=== PATIENT | female | born 1955 | race Caucasian/White ===

== ENCOUNTER 2025-06-20 09:14 | Outpatient (OUT) | payer MEDICARE, SELFPAY ==
--- OUTSIDE RECORDS SUMMARY | 2025-06-06 15:15 | XMS_ITS | Encounter Summary ---
Author Organization [facility] Address [address] [place] [address] Care Team Providers Care Clinical Data Programmer Name Role Phone Riley Garcia MD Primary Care Provider [phone] Reason for Referral * Imaging (Routine) - Pending Review Specialty Diagnoses / Procedures Referred By Contac t Referred To Contact Cardiology Diagnoses S/P TAVR (transcatheter aortic valve replacement) Shortness of breath Procedures Transthoracic echo (TTE) complete Elier Harris MD [address] [facility] [place] [address] Phone: tel: fax: Referral ID Status Reason Start Date Expiration Date Visits Requested Visits Authorized [id number] Pending Review Perform Procedure 06/06/2025 06/06/2026 1 1 Encounter Details Date Type Department Care Team (Late st Contact Info) Description 06/06/2025 3:15 PM EDT Office Visit [facility] [address] [place] [address] Elier Harris MD [address] [facility] [place] [address] S/P TAVR (transcatheter aortic valve replacement) (Primary Dx); Coronary artery disease involving [place] coronary artery of [place] heart without angina pectoris; Chronic diastolic congestive heart failure (CMS/HCC); Primary hypertension; Mixed hyperlipidemia; Status post insertion of drug eluting coronary artery stent; LBBB (left bundle branch block); Shortness of breath Social History Tobacco Use Types Packs/Day Years Used Date Smoking Tobacco: Former Cigarettes Smokeless Tobacco: Never Tobacco Cessation:Counseling Given: Not Answered Alcohol Use Standard Drinks/Week Comments Not Currently 0 (1 standard drink = 0.6 oz pur e alcohol) Comments Unknown Sex and Gender Information Value Date Recorded Sex Assigned at Female 06/06/2025 3:19 PM EDT Legal Sex Female 9:30 AM EDT Gender Identity Female 06/06/2025 3:19 PM EDT Sexual Orientation Heterosexual or Straight 02/2025 3:19 PM EDT documented as of this encounter Last Filed Vital Signs Vital Sign Reading Time Taken Comments Blood Pressure 127/76 06/06/2025 4:26 PM EDT Pulse 90 06/06/2025 4:26 PM EDT Temperature - - Respiratory Rate - - Oxygen Saturation 94% 06/06/2025 4:26 PM EDT Inhaled Oxygen Concentration - - Weight 76.7 kg (169 lb) 06/06/2025 4:26 PM EDT Height 157.5 cm (5' 2 ) 06/06/2025 4:26 PM EDT Body Mass Index 30.91 06/06/2025 4:26 PM EDT documented in this encounter Progress Notes * Elier Harris MD - 06/06/2025 3:15 PM EDT Images from the original note were not included. ID Cardiology - [facility] Aileen Carroll is a 70 y.o. year old female patient being seen to establish care. Patient states [place] moved here from [facility] and needs to establish care with a new insulation engineman. Patient had had a cardiac cath stent, and aortic valve replacement in the past. Patient states she has SOB, KOEHLER, fatigue, bruising/bleeding/discoloration, dizziness/lightheaded. Patient denies chest pain, leg swelling, palpitations/racing heart. Patient Active Problem List Diagnosis Aortic stenosis, severe Benign essential hypertension Centrilobular emphysema (CMS/HCC) Chronic allergic rhinitis Seasonal allergic rhinitis Chronic bilateral low back pain without sciatica Decreased diffusion capacity Exercise-induced angina Family history of breast cancer Family history of colon cancer Gastroesophageal reflux disease Hyperlipidemia Hypertrophic cardiomyopathy (CMS/HCC) Hypoxia Idiopathic pulmonary fibrosis (CMS/HCC) ILD (interstitial lung disease) (CMS/HCC) Immunocompromised patient Latent tuberculosis Localized edema Low libido DDD (degenerative disc disease), lumbar 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) Medication monitoring encounter Moderate major depression (CMS/HCC) Moderate persistent asthma without complication Murmur, cardiac Osteoarthritis, hip, bilateral Other cirrhosis of liver (CMS/HCC) Palpitations Portal hypertension (CMS/HCC) Primary insomnia Psychophysiological insomnia Rheumatoid arthritis involving multiple sites (CMS/HCC) Right-sided epistaxis S/P TAVR (transcatheter aortic valve replacement) SOB (shortness of breath) Spider veins Status post total hip replacement, left TB (pulmonary tuberculosis) Varicose veins of both lower extremities with pain Family History Problem Relation Name Age of Onset Hypertension Mother Heart disease Mother Cancer Mother Colon cancer Father Hypertension Sister Heart disease Brother Social History Tobacco Use Smoking status: Former Types: Cigarettes Smokeless tobacco: Never Substance Use Topics Alcohol use: Not Currently Drug use: Never SUSANA Alisa is seen as a new patient to establish care. She is a 70-year-old woman. Her medical history is significant for COPD, hypertension, hyperlipidemia. She has history of arthritis for which she used methotrexate for 10 years. She has coronary artery disease status post PCI of the LAD on 09/17/2024. She also has ostial diagonal disease that is managed medically. She also has history of nonrheumatic aortic valve stenosis status post TAVR on 01/06/2025. It is reported that she had LVOT obstruction with high gradient on the next day echocardiogram which was treated by stopping diuretic therapy and beta-blake. She also developed left bundle branch block post TAVR. She eventually was managed for her diastolic heart failure with diuretic therapy and improved. Today she reports that she has no chest pain. She has shortness of breath with exertion NYHA class II symptoms. She has to rest to catch her breath. This happens especially on walking longer distances. No associated symptoms. No significant lower extremity edema. No palpitations. No syncope. Review of Systems Constitutional: Positive for malaise/fatigue. Cardiovascular: Positive for dyspnea on exertion. Negative for chest pain. Respiratory: Positive for shortness of breath. Hematologic/Lymphatic: Positive for bleeding problem. Bruises/bleeds easily. Neurological: Positive for dizziness and light-headedness. Objective Visit Vitals BP 127/76 (BP Location: Right arm, Patient Position: Sitting) Pulse 90 Ht 1.575 m (5' 2 ) Wt 76.7 kg (169 lb) SpO2 94% BMI 30.91 kg/m?? Smoking Status Former BSA 1.83 m?? Physical Exam Constitutional: Appearance: She is well-developed. She is not ill-appearing. HENT: Head: Normocephalic and atraumatic. Nose: Nose normal. Eyes: General: No scleral icterus. Pupils: Pupils are equal, round, and reactive to light. Neck: Thyroid: No thyromegaly. Vascular: No JVD. Cardiovascular: Rate and Rhythm: Normal rate and regular rhythm. Pulses: Radial pulses are 2+ on the right side and 2+ on the left side. Heart sounds: Murmur heard. Systolic (RUSB) murmur is present with a grade of 3/6. No friction rub. No gallop. Pulmonary: Effort: Pulmonary effort is normal. No respiratory distress. Breath sounds: Normal breath sounds. No wheezing or rales. Chest: Chest wall: No tenderness. Abdominal: General: Bowel sounds are normal. There is no distension. Palpations: Abdomen is soft. Tenderness: There is no abdominal tenderness. Musculoskeletal: General: No swelling. Cervical back: Neck supple. Skin: General: Skin is warm and dry. Neurological: General: No focal deficit present. Mental Status: She is alert and oriented to person, place, and time. Psychiatric: Mood and Affect: Mood normal. Behavior: Behavior is cooperative. Judgment: Judgment normal. Allergies Allergies Allergen Reactions Celecoxib Nausea And Vomiting and Nausea Only Metoclopramide Other and Unknown Dystonic reaction - restless legs Hydroxychloroquine Rash Tiotropium Headache and Rash Tiotropium [place] Headache and Rash Bad headaches/rash Medications Current Outpatient Medications: adalimumab (Humira Pen) 40 mg/0.4 mL pen injector kit pen-injector, Inject 40 mg under the skin every 14 (fourteen) days., Disp: , Rfl: albuterol 90 mcg/actuation inhaler, Inhale 2 puffs every 4 (four) hours if needed., Disp: , Rfl: cholecalciferol (Vitamin D-3) 25 MCG (1000 units) tablet, Take 1,000 Units by mouth in the morning., Disp: , Rfl: clopidogrel (Plavix) 75 mg tablet, Take 75 mg by mouth in the morning., Disp: , Rfl: DULoxetine (Cymbalta) [address] capsule, Take 60 mg by mouth in the morning., Disp: , Rfl: ethambutol (Myambutol) 400 mg tablet, Take 400 mg by mouth in the morning, afternoon, and at bedtime., Disp: , Rfl: rrennhdmexu-pdotsrbya-niklpebr (Trelegy Ellipta) 200-62.5-25 mcg blister with device, Inhale 1 puffin the morning., Disp: , Rfl: furosemide (Lasix) 20 mg tablet, Take 20 mg by mouth in the morning., Disp: , Rfl: lovastatin (Mevacor) 40 mg tablet, Take 40 mg by mouth in the morning., Disp: , Rfl: metoprolol succinate XL (Toprol-XL) 25 mg 24 hr tablet, Take 25 mg by mouth in the morning., Disp: , Rfl: montelukast (Singulair) 10 mg tablet, Take 10 mg by mouth at bedtime., Disp: , Rfl: omeprazole (PriLOSEC) [address] capsule, Take 40 mg by mouth before breakfast., Disp: , Rfl: potassium chloride CR (Klor-Con M20) 20 mEq ER tablet, Take 20 mEq by mouth in the morning., Disp: , Rfl: Wegovy 0.5 mg/0.5 mL pen injector, Inject 5 mcg as directed 1 (one) time per week., Disp: , Rfl: zolpidem (Ambien) 5 mg tablet, Take 5 mg by mouth if needed each day., Disp: , Rfl: amoxicillin (Amoxil) 500 mg tablet, Take 4 tablets (2,000 mg) by mouth 1 (one) time if needed (30-60 minute prior to dental procedures) for up to 20 doses., Disp: 20 tablet, Rfl: 3 aspirin 81 mg chewable tablet, Chew 81 mg in the morning., Disp: , Rfl: ezetimibe (Zetia) 10 mg tablet, Take 1 tablet (10 mg) by mouth in the morning., Disp: 90 tablet, Rfl: 3 gabapentin (Neurontin) 100 mg capsule, Take 100 mg by mouth two times daily., Disp: , Rfl: magnesium oxide (Mag-Ox) 400 mg (241.3 mg magnesium) tablet, Take 400 mg by mouth in the morning., Disp: , Rfl: mometasone-formoterol (Dulera 100) 100-5 mcg/actuation inhaler, Inhale 2 puffs in the morning and at bedtime., Disp: , Rfl: Recent Labs blood testing 06/02/2025: LFTs mildly elevated AST and ALT, cholesterol 155, triglycerides 75, HDL 59, LDL 81, TSH 2.58, free T4 0.82. Blood testing 02/22/2025: Hemoglobin 13.6, platelets 288, potassium 3.8, BUN 7, creatinine 0.7, EGFR92. Imaging and other tests ECG 02/22/2025: Normal sinus rhythm with left bundle branch block. TTE 02/07/2025 Interpretation Summary Show Result Comparison Left Ventricle: Hyperdynamic systolic function with a visually estimated EF of 60 - 65%. Grade I diastolic dysfunction. Mitral Valve: Mild to moderate transvalvular regurgitation with a centrally directed jet. Left Atrium: Left atrium is moderately dilated. IVC/SVC: IVC diameter is greater than 21 mm and decreases less than 50% during inspiration; therefore the estimated right atrial pressure is elevated (~15 mmHg). Aortic Valve: Appropriately positioned transcatheter bioprosthetic valve. No transvalvular regurgitation. No stenosis.LVOT mean PG of 8mmgh Event monitor 01/07/2025: Impressions: 1. Underlying sinus rhythm with bundle branch block noted. Average heart rate 73 bpm and minimum heart rate 53 bpm. No significant pauses were seen 2. 1 patient triggered event which was associated with sinus rhythm atrial couplet 3. Occasional PACs with 2% PAC burden 4. Frequent episodes of nonsustained SVT which at times appear to be atrial tachycardia and other times was concerning for atrial flutter. Very difficult to identify underlying rhythm. There were 251 total episodes of the atrial arrhythmia with the longest lasting 27 minutes. Total atrial arrhythmia burden of 1%. Total time in atrial arrhythmia of 6 hours and 13 minutes. 5. Occasional PVCs with 2% PVC burden. No obvious ventricular arrhythmia identified. There were episodes of short runs of wide-complex tachycardia but with underlying bundle branch block difficult to determine whether this represents nonsustained VT. TAVR 01/06/2025 Conclusion: Successful 29 evolute fx TAVR placement. Patient developed left bundle branch block from the wire insertion and she stayed on left bundle branch block. No requirement for pacing, temporary pacemaker was removed. Primary access was 14 [place] right femoral artery was closed with 2 Perclose and 8 [place] Angio-Seal with excellent hemostasis. Secondary access 5 [place] left femoral artery and 6 [place] left femoral vein were removed with manual pressure excellent hemostasis. Transthoracic echo the morning. Consider event monitor upon discharge Routine post-TAVR protocol. Assessment/Plan Diagnoses and all orders for this visit: S/P TAVR (transcatheter aortic valve replacement) - Transthoracic echo (TTE) complete; Future - amoxicillin (Amoxil) 500 mg tablet; Take 4 tablets (2,000 mg) by mouth 1 (one) time if needed (30-60 minute prior to dental procedures) for up to 20 doses. Coronary artery disease involving [place] coronary artery of [place] heart without angina pectoris - ezetimibe (Zetia) 10 mg tablet; Take 1 tablet (10 mg) by mouth in the morning. Chronic diastolic congestive heart failure (CMS/HCC) Primary hypertension Mixed hyperlipidemia - ezetimibe (Zetia) 10 mg tablet; Take 1 tablet (10 mg) by mouth in the morning. Status post insertion of drug eluting coronary artery stent LBBB (left bundle branch block) Shortness of breath - Transthoracic echo (TTE) complete; Future 1. Status post TAVR for nonrheumatic aortic valve stenosis: The 1 months post TAVR echocardiogram in February 2025 showed normal functioning of the TAVR prosthesis. Today on exam she does have a higher grade murmur that I would expect after a TAVR. She does have shortness of breath on exertion NYHA class II symptoms. I will check a follow-up echocardiogram. This is to check on ventricular function especially in light of her development of left bundle branch block after the TAVR. I am providing her with a prescription for amoxicillin for endocarditis prophylaxis prior to dentalprocedures. 2. CAD status post stenting of the LAD in September 2024: No angina. Continue dual antiplatelet therapy with aspirin and clopidogrel. I will target lower LDL level by adding ezetimibe 10 mg daily. I told her that when I see her next time in 3 months we will consider stopping clopidogrel and continuing aspirin monotherapy. 3. Hypertension: This is well-controlled, continue current medications. 4. Hyperlipidemia: Currently on lovastatin. Her most recent LDL level in May 2025 was 81. I am adding ezetimibe 10 mg daily to target lower LDL level. I will plan on seeing her in follow-up to review the above testing and her clinical progress and decide on further management. Follow up in about 3 months (around 09/06/2025). Elier Harris MD documented in this encounter Plan of Treatment Scheduled Orders Name Type Priority Associated Diagnoses Order Schedule Transthoracic echo (TTE) complete Echocardiography Routine S/P TAVR (transcatheter aortic valve replacement) Shortness of breath Expected: 06/06/2025 (Approximate), Expires: 06/06/2027 documented as of this encounter Visit Diagnoses Diagnosis S/P TAVR (transcatheter aortic valve replacement)- Primary Coronary artery disease involving [place] coronary artery of [place] heart without angina pectoris Chronic diastolic congestive heart failure (CMS/HCC) Primary hypertension Unspecified essential hypertension Mixed hyperlipidemia Status post insertion of drug eluting coronary artery stent LBBB (left bundle branch block) Other left bundle branch block Shortness of breath documented in this encounter Care Teams Clinical Data Programmer Relationship Specialty Start Date End Date Riley Garcia MD [address] [facility] [address] [address] PCP - General Family Medicine 06/06/25 documented as of this encounter
--- OUTSIDE RECORDS SUMMARY | 2025-06-20 09:22 | XMS_ITS | Clinical Summary ---
Author Organization [facility] Address [address] [place] [address] Care Team Providers Care Outsole Skiver Name Role Phone Riley Garcia MD Primary Care Provider [phone] Allergies Active Allergy Reactions Criticality Noted Date Comments Celecoxib Nausea And Vomiting,Nausea Only Medium 06/10/2011 Hydroxychloroquine Rash Low 12/13/2024 Metoclopramide Other,Unknown Medium 08/21/2020 Dystonic reaction - restless legs Tiotropium Headache,Rash Low 03/29/2020 Tiotropium [place] Headache,Rash Low 11/19/2018 Bad headaches/rash Medications fluticasone-umeclid in-vilanter (Trelegy Ellipta) 200-62.5-25 mcg blister with device Inhale 1 puff in the morning. 4 Active albuterol 90 mcg/actuation inhaler Inhale 2 puffs every 4 (four) hours if needed. 8 Active cholecalciferol (Vitamin D-3) 25 MCG (1000 units) tablet Take 1,000 Units by mouth in the morning. 5 Active clopidogrel (Plavix) 75 mg tablet Take 75 mg by mouth in the morning. 4 Active DULoxetine (Cymbalta) [address] capsule Take 60 mg by mouth in the morning. 4 Active ethambutol (Myambutol) 400 mg tablet Take 400 mg by mouth in the morning, afternoon, and at bedtime. 5 Active furosemide (Lasix) 20 mg tablet Take 20 mg by mouth in the morning. 4 Active gabapentin (Neurontin) 100 mg capsule Take 100 mg by mouth two times daily. Active lovastatin (Mevacor) 40 mg tablet Take 40 mg by mouth in the morning. 4 Active magnesium oxide (Mag-Ox) 400 mg (241.3 mg magnesium) tablet Take 400 mg by mouth in the morning. Active metoprolol succinate XL (Toprol-XL) 25 mg 24 hr tablet Take 25 mg by mouth in the morning. 5 Active montelukast (Singulair) 10 mg tablet Take 10 mg by mouth at bedtime. 0 Active omeprazole (PriLOSEC) [address] capsule Take 40 mg by mouth before breakfast. 4 Active potassium chloride CR (Klor-Con M20) 20 mEq ER tablet Take 20 mEq by mouth in the morning. 4 Active zolpidem (Ambien) 5 mg tablet Take 5 mg by mouth if needed each day. 5 Active Wegovy 0.5 mg/0.5 mL pen injector Inject 5 mcg as directed 1 (one) time per week. 5 Active mometasone-formoter ol (Dulera 100) 100-5 mcg/actuation inhaler Inhale 2 puffs in the morning and at bedtime. Active aspirin 81 mg chewable tablet Chew 81 mg in the morning. Active adalimumab (Humira Pen) 40 mg/0.4 mL pen injector kit pen-injector Inject 40 mg under the skin every 14 (fourteen) days. 5 Active ezetimibe (Zetia) 10 mg tabletIndications:C oronary artery disease involving [place] coronary artery of [place] heart without angina pectoris,Mixed hyperlipidemia Take 1 tablet (10 mg) by mouth in the morning. 90 tablet 3 5 06/06/20 26 Active amoxicillin (Amoxil) 500 mg tabletIndications:S /P TAVR (transcatheter aortic valve replacement) Take 4 tablets (2,000 mg) by mouth 1 (one) time if needed (30-60 minute prior to dental procedures) for up to 20 doses. 20 tablet 3 5 Active Active Problems Problem Noted Date Diagnosed Date Hypoxia 06/06/2025 S/P TAVR (transcatheter aortic valve replacement ) 01/06/2025 Localized edema 10/28/2024 Aortic stenosis, severe 09/01/2024 Portal hypertension 01/27/2024 IRENA (mycobacterium avium-intracellulare) infecti on 11/11/2023 DDD (degenerative disc disease), lumbar 07/31/20 Centrilobular emphysema 07/25/2022 Low libido 07/25/2022 Psychophysiological insomnia 07/25/2022 Murmur, cardiac 03/21/2022 Chronic allergic rhinitis 06/01/2021 Immunocompromised patient 06/01/2021 Other cirrhosis of liver 08/04/2020 Overview (06/06/2025): Due to methotrexate Varicose veins of both lower extremities with pa in 08/04/2020 Chronic bilateral low back pain without sciatica 05/30/2020 Moderate major depression 05/30/2020 Idiopathic pulmonary fibrosis 05/19/2018 Seasonal allergic rhinitis 04/14/2018 Overview (06/06/2025): in spring and fall Decreased diffusion capacity 04/14/2018 Overview (06/06/2025): progressive since 2001 ILD (interstitial lung disease) 04/14/2018 Overview (06/06/2025): likely from RA/ methotrexate use- pending CT chest Latent tuberculosis 04/14/2018 Overview (06/06/2025): treated for a year at age 8 Moderate persistent asthma without complication 04/14/2018 Overview (06/06/2025): clinically and per PFT Palpitations 02/03/2018 SOB (shortness of breath) 02/03/2018 Primary insomnia 01/23/2018 Spider veins 01/23/2018 Medication monitoring encounter 03/18/2017 Status post total hip replacement, left 10/16/20 16 Hypertrophic cardiomyopathy 09/24/2016 Exercise-induced angina 08/27/2016 Overview (06/06/2025): Replaced inactive diagnosis Right-sided epistaxis 08/02/2016 Osteoarthritis, hip, bilateral 02/10/2014 TB (pulmonary tuberculosis) 02/22/2013 Benign essential hypertension 11/29/2011 Family history of breast cancer 11/29/2011 Family history of colon cancer 11/29/2011 Gastroesophageal reflux disease 11/29/2011 Hyperlipidemia 11/29/2011 Rheumatoid arthritis involving multiple sites Overview (06/06/2025): on methotrexate and Humira injections- controlled updated via Diagnosis import Encounters Date Type Department Care Team Description 06/06/2025 3:15 PM EDT Office Visit [place] [address] [place] [id number] Elier Harris MD S/P TAVR (transcatheter aortic valve replacement) (Primary Dx); Coronary artery disease involving [place] coronary artery of [place] heart without angina pectoris; Chronic diastolic congestive heart failure (CMS/HCC); Primary hypertension; Mixed hyperlipidemia; Status post insertion of drug eluting coronary artery stent; LBBB (left bundle branch block); Shortness of breath from Last 3 Months Family History Medical History Relation Name Comments Heart disease Brother Colon cancer Father Cancer Mother Heart disease Mother Hypertension Mother Hypertension Sister Relation Name Status Comments Brother Father Mother Sister Social History Tobacco Use Types Packs/Day Years [...] Heterosexual or Straight 02/2025 3:19 PM EDT Last Filed Vital Signs Vital Sign Reading [...] Mass Index 30.91 06/06/2025 4:26 PM EDT Plan of Treatment Health Maintenance Due Date Last Done Comments CT Colonography 1953 FIT-DNA 1953 FIT 1955 FOBT 1955 Sigmoidoscopy 1953 Depression Screening 1965 Adult Tetanus 1975 Fall Risk Screening 2018 COVID-19 Vaccine ( season) 2024 11/03/2021, 04/13/2021, 03/16/2021 Influenza Vaccine (#1) 2025 , 07/23/2022, 07/18/2021, Additional history exists Mammogram 12/01/2026 12/01/2024, 11/03, 06/08/2014 Colonoscopy 10/04/2031 10/04/2021 Colorectal Cancer Screening 10/04/2031 Pneumococcal Vaccine: 50+ Years Completed 06/01/2021, 05/30/2020 Zoster Vaccines Completed 07/26/2024, 05/20/2024 HIB Vaccines Aged Out No longer eligi ble based on patient's age to complete this topic HPV Vaccines Aged Out No longer eligi ble based on patient's age to complete this topic IPV Vaccines Aged Out No longer eligi ble based on patient's age to complete this topic Meningococcal B Vaccine Aged Out No l onger eligible based on patient's age to complete this topic Meningococcal Vaccine Aged Out No ruben julissa eligible based on patient's age to complete this topic Rotavirus Vaccines Aged Out No longer eligible based on patient's age to complete this topic Insurance [facility] Care Teams Outsole Skiver Relationship Specialty Start Date End Date Riley Garcia MD [address] [facility] [place] [address] PCP - General Family Medicine 06/06/25
--- NOTE | 2025-06-20 09:30 | CA_ITS ---
Patient Name: VINCENT MCKINNON MR#: [id number] : 1955 Exam Date: 06/20/2025 Ordering Doctor: DR SUHAIL HARRIS M.D. ECHOCARDIOGRAM REPORT PROCEDURE: CA ECHO DOPPLER COMPLETE INDICATIONS: S/p TAVR (transcatheter aortic valve replacement), dyspnea, hypertension, COPD COMPARISON: None. DESCRIPTION: COMPLETE ECHOCARDIOGRAM Real-time transthoracic echocardiography with 2D, M-mode, spectral and color flow Doppler performed. QUALITY: Technical quality was good. LEFT VENTRICLE: Normal chamber size. Moderate to severe concentric hypertrophy with significantly thickened septal wall measuring 1.5 cm. Hyperdynamic systolic function. Mild ventricular outflow obstruction, peak gradient 19 mmHg with a Valsalva maneuver. Estimated LVEF is 75%. LV EF: Normal left ventricular ejection fraction, (>55%). DIASTOLIC: Grade II diastolic dysfunction. ATRIAL SEPTUM: Visually appears intact. LEFT ATRIUM: Mild dilatation. RIGHT ATRIUM: Normal chamber size. RIGHT VENTRICLE: Normal chamber size. Normal right ventricular systolic function. TRICUSPID VALVE: Normal mobility and thickness. No stenosis with mild regurgitation. Doppler studies reveal moderately (45-60) elevated right sided pressures. RVSP 50 mmHg MITRAL VALVE: Normal mobility and thickness. No evidence of mitral valve stenosis. There is no mitral annular calcification. Mild to moderate mitral regurgitation. AORTIC VALVE: Bio-Prosthetic valve appears well seated in the aortic position with normal Doppler flow. Mean gradient 12 mmHg [high LVOT velocity]. No aortic regurgitation. AORTIC ROOT: Normal diameter and appearance. PULMONIC VALVE: Normal thickness and mobility. No stenosis. No regurgitation. PERICARDIUM: Trivial pericardial effusion. IVC: Collapses with inspirations. PLEURA: CONCLUSION: 1. Moderate to severe concentric left ventricular hypertrophy with hyperdynamic systolic function and mild LVOT obstruction with Valsalva maneuver, peak gradient 19 mmHg. Estimated LVEF is 75%. 2. Normal right ventricular size and systolic function. 3. Bioprosthetic aortic valve is well-seated with normal Doppler flows and no regurgitation. 4. Mild to moderate mitral regurgitation. 5. Mild tricuspid regurgitation. 6. Moderately elevated right-sided pressures. RVSP is 50 mmHg. Adult Echocardiography Procedure Report Left Ventricle LVEDD (3.7 - 5.6 cm): 4.23 cm LVESD (2.2 - 4.0 cm): 2.77 cm LVIVS thickness (0.6 - 1.2 cm): 1.51 cm LVPW thickness (0.5 - 1.0 cm): 0.87 cm e': 0.07 m/s E - e': 10.25 LVOT Max Gradient: 17.57 mm[Hg] LVOT Area (cm2): 2.10 m/s Peak Velocity (LVOT): 2.10 m/s Mean Velocity (LVOT): 1.24 m/s LVOT Diameter 2.02 cm Left Ventricular Ejection Fraction: 75 % Left Atrium LA Volume Index (2D A2C): 38.49 ml/m2 Left Atrium Systolic Dimension: 3.46 cm Mitral Valve MV E to A Ratio: 0.63 Mitral Valve A-Wave Peak Velocity: 1.09 m/s Mitral Valve E-Wave Peak Velocity: 0.69 m/s Right Ventricle Aorta AO Root Diam: 3.08 cm Aortic Valve AoV Area (Peak Arturo): 2.63 cm2, 2.63 cm2 AoV Area (VTI): 2.56 cm2, 2.56 cm2 Peak Velocity(Antegrade Flow): 2.56 m/s Peak Gradient(Antegrade Flow): 26.24 mm[Hg] Mean Velocity(Antegrade Flow): 1.55 m/s Mean Gradient(Antegrade Flow): 11.82 mm[Hg] Velocity Time Integral: 44.50 cm Tricuspid Valve Peak Velocity (Regurgitant Flow): 2.81 m/s, 3.43 m/s, 2.73 m/s Pulmonic Valve Peak Velocity: 1.26 m/s Peak Gradient: 6.34 mm[Hg] Right Atrium Dictated by: Suhail Harris M.D. on 06/20/2025 at 17:23 Approved by: Suhail Harris M.D. on 06/20/2025 at 17:33
== END 2025-06-20 09:15 | disposition home or self-care (01) ==
LOC: CARD 09:20
PROVIDERS: PCP Family Medicine; Visit Provider Internal Medicine Interventional Cardiology
DX: R06.02 Shortness of breath (principal); Z95.2 Presence of prosthetic heart valve
CPT/HCPCS: 93306

== ENCOUNTER 2025-07-05 10:51 | Outpatient (OUT) | payer MEDICARE, SELFPAY ==
[2025-07-05 11:03] LABS: Hemoglobin 14.1 g/dL (12.0-16.0)
[2025-07-05] MEDS: ALBUTEROL SULFATE 2.5 MG/3 ML VIAL NEB IH (11:30)
== END 2025-07-05 10:52 | disposition home or self-care (01) ==
LOC: CARD 10:51
PROVIDERS: PCP Family Medicine; Visit Provider Family Medicine
DX: J44.9 Chronic obstructive pulmonary disease, unspecified (principal)
CPT/HCPCS: 36415; 85018; 94060; 94726; 94729

== ENCOUNTER 2025-07-14 09:40 | Outpatient (OUT) | payer MEDICARE, SELFPAY ==
--- OUTSIDE RECORDS SUMMARY | 2025-06-23 06:00 | XMS_ITS ---
Author Organization The [facility] in [place] Address [address] [place] [address] Care Team Providers Care Client Solutions Specialist Name Role Phone Jose Homero Primary Care Provider [phone] Allergies Allergen (clinical drug ingredient) Drug/Non Drug Allergy documented on EMR Reaction Allergy Type Onset Date Status celecoxib CeleBREX GI upset Drug Allergy Active Reason For Referral Diagnosis 1 Cervical radiculopat hy (M54.12) Referral Organization [facility] Medicine Referring Provider First Name Homero Referring Provider Last Name Jose Referring Provider Speciality Family Med icine Referred Provider Pain Management, TB Referred Provider Specialty Pain Medicin e Referral Priority Routine REASON FOR VISIT Needs Referral- wants spinal injection she was supposed to have done prior to moving here Medications Medication SIG (Take, Route, Frequency, Duration) Notes Start Date End Date Status Metoprolol Succinate ER 25 MG 1 tablet Orally Once a day 06/01/2025 Active Methocarbamol 750 MG 1 tablet Orally thr ee times daily PRN 06/01/2025 Active Magnesium 250 MG 2 tablet with a meal Orally Once a day 06/01/2025 Active Lovastatin 40 MG 1 tablet Orally with evening meal 06/01/2025 Active Montelukast Sodium 10 MG 1 tablet Orally Once a day 06/01/2025 Active Gabapentin 300 MG 1 capsule Orally thr ee times daily for 30 days 06/01/2025 Active Furosemide 40 MG 1 tablet Orally twic e daily 06/01/2025 Active DULoxetine HCl 60 MG 1 capsule Orally On a day 06/01/2025 Active Aspirin Adult Low Dose 81 MG 1 tablet Orally Once a day 06/01/2025 Active Albuterol Sulfate HFA 108 (90 Base) MCG/ACT 2 puff as needed Inhalation every 4 hrs 06/01/2025 Active Zolpidem Tartrate 5 MG 1 tablet Orally a t bedtime PRN 06/01/2025 Active Zetia 10 MG 1 tablet Orally Once a day for 30 days 06/07/2025 Active Wegovy 0.5 MG/0.5ML Inject 0.5 mL Subcutaneous once weely 06/01/2025 Active Vitamin D3 25 MCG (1000 UT) 1 tablet Ora lly Once a day 06/01/2025 Active predniSONE 10 MG 1 tab Orally Once a day for 30 days 06/01/2025 Active Potassium Chloride Kiesha ER 20 MEQ 1 tablet with food Orally twice daily 06/01/2025 Active Omeprazole 40 MG 1 capsule 1/2 to 1 h our before morning meal Orally Once a day 06/01/2025 Active Social History Tobacco Use: Social History Observation Description Date Details (start date - stop date) Former Smoker 11/03/1968 - 11/03/2000 Tobacco Control (Standard) Question Answer Notes Tobacco use: Former smoker When did you start smoking? 11/03/1968 When did you stop smoking? 11/03/2000 How long has it been since y ou last smoked? Greater than 10 years Additional Findings: Tobacco user Modera te cigarette smoker (10-19 cigs/day) Additional Findings: Tobacco non-user Ex -moderate cigarette smoker (10-19/day) Problems Problem Type SNOMED Code ICD Code Onset Dates Problem Status W/U Status Risk Notes Problem Cervical radiculopathy (02961600) Cervical radiculopathy (M54.12) Active confirmed Vital Signs Blood pressure systolic 118 mm Hg 06/23/20 25 Blood pressure diastolic 80 mm Hg 025 Height 62 in 06/23/2025 Weight 166.6 lbs 06/23/2025 BMI 30.47 kg/m2 06/23/2025 Encounters Encounter Location Date Provider Diagnosis [facility] [address] [place] [address] 06/23/2025 Homero Hoy Cervical radiculopat hy M54.12 Assessments Encounter Date Diagnosis (ICD Code) Assessment Notes Treatment Notes Treatment Clinical Notes Section Notes 06/23/2025 Cervical radiculopathy (ICD-10 - M54.12) 06/23/2025 Other Recommended to rest and use a heating pad on the area. Take NSAIDs for pain as needed Plan Of Treatment Treatment Notes Assessment Notes Other Recommended to rest and use a heating pad on the area. Take NSAIDs for pain as needed Referrals Referral Date Details 06/23/2025 06/23/2025, [facility] Pain Management Next Appt Details Provider Name:Homero Portillo oJse, 10:15:00 AM, [address] [place], [address], Progress Notes * Alisa CARROLLDOB:1955 ( 70 yo F)Acc No.[id number]:06/23/2025 Progress Note Patient: Alisa STEINBERG Provider: Grey Garcia ([facility])MD :1955 A ge:70 Y S ex:Female Date:06/23/2025 Address:[address] [place] [address] [address] [facility] , [address], [id number] Check In:09:44 AM ESTCheck O ut:10:45 AM EST Subjective: * Chief Complaints: * N eeds Referral- wants spinal injection she was supposed to have done prior to moving here * HPI: G eneral: Discussed - neck pain - was recommended to have ervical injections - but moved to this area. B ack Pain: The patient complains of -. The symptoms have been present for 1-2 days. The patient believes symptoms are injury related No. The symptoms are mild. Symptomatic treatment has included heating pad, stretching. Associated symptoms include None. * ROS: G eneral/Constitutional: Lightheadedness d enies. C hange in appetite d enies. W eight Change d enies. C ardiovascular: Irregular heartbeat d enies. S welling in hands/feet?denies. R espiratory: Shortness of breath d enies. S hortness of breath with exertion d enies. W heezing d enies. M usculoskeletal: Comments S ee HPI for details. N eurologic: Dizziness d enies. F ainting d enies. H eadache?denies. * Active Problem List M06.9 Rheumatoid arthritis Modified On:06/01/2025 Status:confirmed J44.9 COPD (chronic obstru ctive pulmonary disease) Modified On:06/01/2025 Status:confirmed K21.9 GERD (gastroesophage al reflux disease) Modified On:06/01/2025 Status:confirmed J30.2 Seasonal allergies Modified On:06/01/2025 Status:confirmed K76.9 Liver disease Modified On:06/01/2025 Status:confirmed M62.830 Back spasm Modified On:06/01/2025 Status:confirmed E78.00 Hypercholesterolemia Modified On:06/01/2025 Status:confirmed G47.00 Insomnia Modified On:06/01/2025 Status:confirmed I25.10 CAD (coronary artery disease) Modified On:06/01/2025 Status:confirmed K74.60 Cirrhosis Modified On:06/01/2025 Status:confirmed M54.12 Cervical radiculopat hy Modified On:06/23/2025 Status:confirmed * Medical History: * Surgical History: A ortic Valve Replacement Carpal Hip replacement- left Knee arthroscopy Rotator Cuff- Left * Hospitalization/Major Diagno stic Procedure: D enies Past Hospitalization * Family History: F ather: , Colon cancer. M other: , pancreatic cancer. B rother(s): . S ister(s): , Lung Cancer. S on(s): alive. D jacey(s): alive. 5 brother(s) , 5 sister(s) . 2 son(s) , 1 daughter(s) - healthy. . 1 brother at . * Social History: T obacco Use: T obacco Control (Standard) T obacco use: F ormer smoker W hen did you start smoking? 0 11/03/1968 W hen did you stop smoking? 0 11/03/2000 H ow long has it been since you last smoked??Greater than 10 years A dditional Findings: Tobacco user M oderate cigarette smoker (10-19 cigs/day) A dditional Findings: Tobacco non-user E x-moderate cigarette smoker (10-19/day) * Medications: T akingAlbuterol Sulfate HFA 108 (90 Base) MCG/ACT Aerosol Solution 2 puff as needed Inhalation every 4 hrs Aspirin Adult Low Dose(Aspirin) 81 MG Tablet Delayed Release 1 tablet Orally Once a day DULoxetine HCl 60 MG Capsule Delayed Release Particles 1 capsule Orally Once a day Furosemide 40 MG Tablet 1 tablet Orally twice daily Gabapentin 300 MG Capsule 1 capsule Orally three times daily Lovastatin 40 MG Tablet 1 tablet Orally with evening meal Magnesium 250 MG Tablet 2 tablet with a meal Orally Once a day Methocarbamol 750 MG Tablet 1 tablet Orally three times daily PRN Metoprolol Succinate ER 25 MG Tablet Extended Release 24 Hour 1 tablet Orally Once a day Montelukast Sodium 10 MG Tablet 1 tablet Orally Once a day Omeprazole 40 MG Capsule Delayed Release 1 capsule 1/2 to 1 hour before morning meal Orally Once a day Potassium Chloride Kiesha ER 20 MEQ Tablet Extended Release 1 tablet with food Orally twice daily predniSONE 10 MG Tablet 1 tab Orally Once a day Vitamin D3 25 MCG (1000 UT) Tablet 1 tablet Orally Once a day Wegovy(Semaglutide-Weight Management) 0.5 MG/0.5ML Solution Auto-injector Inject 0.5 mL Subcutaneous once weely Zetia(Ezetimibe) 10 MG Tablet 1 tablet Orally Once a day Zolpidem Tartrate 5 MG Tablet 1 tablet Orally at bedtime PRN Medication List reviewed and reconciled with the patientTaking Albuterol Sulfate HFA 108 (90 Base) MCG/ACT Aerosol Solution 2 puff as needed Inhalation every 4 hrs Taking Aspirin Adult Low Dose(Aspirin) 81 MG Tablet Delayed Release 1 tablet Orally Once a day Taking DULoxetine HCl 60 MG Capsule Delayed Release Particles 1 capsule Orally Once a day Taking Furosemide 40 MG Tablet 1 tablet Orally twice daily Taking Gabapentin 300 MG Capsule 1 capsule Orally three times daily Taking Lovastatin 40 MG Tablet 1 tablet Orally with evening meal Taking Magnesium 250 MG Tablet 2 tablet with a meal Orally Once a day Taking Methocarbamol 750 MG Tablet 1 tablet Orally three times daily PRN Taking Metoprolol Succinate ER 25 MG Tablet Extended Release 24 Hour 1 tablet Orally Once a day Taking Montelukast Sodium 10 MG Tablet 1 tablet Orally Once a day Taking Omeprazole 40 MG Capsule Delayed Release 1 capsule 1/2 to 1 hour before morning meal Orally Once a day Taking Potassium Chloride Kiesha ER 20 MEQ Tablet Extended Release 1 tablet with food Orally twice daily Taking predniSONE 10 MG Tablet 1 tab Orally Once a day Taking Vitamin D3 25 MCG (1000 UT) Tablet 1 tablet Orally Once a day Taking Wegovy(Semaglutide- Weight Management) 0.5 MG/0.5ML Solution Auto-injector Inject 0.5 mL Subcutaneous once weely Taking Zetia(Ezetimibe) 10 MG Tablet 1 tablet Orally Once a day Taking Zolpidem Tartrate 5 MG Tablet 1 tablet Orally at bedtime PRN Medication List reviewed and reconciled with the patient * Allergies: C eleBREX: GI upset - Side Effectsno[Allergies Verified] Objective: * Vitals: W t:166.6lbs, Ht: 62 in, BP:118/80mm Hg, BMI:30.47Index, Ht-cm: 157.48 cm, Wt-k.57 kg. * Examination: G eneral Examination: GENERAL APPEARANCE: i n no acute distress, well developed, well nourished. LUNGS: clear to auscultation bilaterally. CARDIO: S1, S2 normal, no murmurs, rubs, gallops. MUSCULOSKELETAL: ____. EXTREMITIES: no clubbing, cyanosis, or edema. NEUROLOGIC: alert, oriented to time, place, & person.? Assessment: * Assessment: 1. C ervical radiculopathy - M54.12 (Primary) Plan: * Treatment: 2. O thers Notes: Recommended to rest and use a heating pad on the area. Take NSAIDs for pain as needed ? * Procedure Codes: 3 079F DIAST BP 80-89 MM [id number] SYST BP LT 130 MM HG * * Sign off status: Completed Visit Status: C HK (Check Out) true * Provider: Grey Garcia (TTC)MD Date: 0 06/23/2025 Generated for Christine booth/Bita/Aliciaitting on: 0 07/14/2025 09:42 AM EDT History and Physical Notes * HPI (History of Present Illness) Category Sub-Category Detail Notes Category Not es General Discussed - nec k pain - was recommended to have ervical injections - but moved to this area Examination Category Sub-Category Detail Notes Category Not es General Examination GENERAL APPEARANCE: in no ac [place] distress, well developed, well nourished CARDIO: S1, S2 normal, no mu rmurs, rubs, gallops LUNGS: clear to auscultatio n bilaterally NEUROLOGIC: alert, oriented to t orion, place, & person EXTREMITIES: no clubbing, cyanosi s, or edema MUSCULOSKELETAL: ____ Consultation Request Notes Referral Date Referring Provider Referred Provider Not es 06/23/2025 Homero Garcia Pain Management, [facility]
--- OUTSIDE RECORDS SUMMARY | 2025-06-23 06:40 | XMS_ITS ---
Author Organization [facility] in [place] Address [address] [place] [address] Care Team Providers Care Licensed Chemical Spray Technician Name Role Phone Homero Garcia Primary Care Provider [phone] REASON FOR VISIT results Encounters Encounter Location Date Provider Diagnosis [facility] [address] [place] [address] 06/23/2025 Homero Jose Plan Of Treatment Next Appt Details Provider Name:Homero Garcia, 10:15:00 AM, [address] [place], [address], Progress Notes * LEONARDOAlec SolitariolinoDOB:1955 ( 70 yo F)Acc No.[id number]:06/23/2025 Patient: Alisa STEINBERG :1955 A ge:70 Y S ex:Female Address:[address] [place] [address] [address] , [address], [place], [address] * true * Date: Generated for Christine booth/Bita/eTransmitting on: 0 07/14/2025 09:43 AM EDT
--- OUTSIDE RECORDS SUMMARY | 2025-06-28 11:04 | XMS_ITS ---
Author Organization [facility] in [place] Address [address] [place] [address] Care Team Providers Care Inspector Plug Seam Name Role Phone Homero Garcia Primary Care Provider [phone] Reason For Referral Diagnosis 1 Rheumatoid arthritis (M06.9) Referral Organization [facility] Referring Provider First Name Homero Referring Provider Last Name Jose Referring Provider [facility] Referred Provider Specialty Rheumatology Referral Priority Routine REASON FOR VISIT Rheumatology Encounters Encounter Location Date Provider Diagnosis [facility] [address] [place] [address] 06/28/2025 Homero Garcia Rheumatoid arthritis M06.9 Assessments Encounter Date Diagnosis (ICD Code) Assessment Notes Treatment Notes Treatment Clinical Notes Section Notes 06/28/2025 Rheumatoid arthritis (ICD-10 - M06.9) Plan Of Treatment Referrals Referral Date Details 06/28/2025 06/28/2025 Next Appt Details Provider Name:Homero Garcia, 10:15:00 AM, [address] [place], [address], Progress Notes * Alisa CARROLLDOB:1955 ( 70 yo F)Acc No.[id number]:06/28/2025 Patient: Alisa STEINBERG :1955 A ge:70 Y S ex:Female Address:[address] , [address], [place], [address] Subjective: * Chief Complaints: * R heumatology * Medical History: * Surgical History: * Hospitalization/Major Diagno stic Procedure: * Medications: Objective: * Vitals: * Physical Examination: Assessment: * Assessment: 1. R heumatoid arthritis - M06.9 (Primary) Plan: * Treatment: * Procedure Codes: * true * Date: Generated for Christine booth/Bita/Nicksmitting on: 0 07/14/2025 09:44 AM EDT Consultation Request Notes Referral Date Referring Provider Referred Provider Not es 06/28/2025 Homero Garcia ,
--- OUTSIDE RECORDS SUMMARY | 2025-06-30 05:00 | XMS_ITS ---
Author Organization [facility] in [place] Address [address] [place] [address] Care Team Providers Care Embedded Software Manager Name Role Phone Homero Garcia Primary Care Provider Gage Chu [phone] REASON FOR VISIT new pt per pt rheumatoid arthritis Encounters Encounter Location Date Provider Diagnosis [facility] Rheumatology [address] [place] [address] 06/30/2025 Gage Chu Plan Of Treatment Next Appt Details Provider Name:Homero Garcia, 10:15:00 AM, [address] [place], [address], Progress Notes * INO AlisaDOB:1955 ( 70 yo F)Acc No.[id number]:06/30/2025 UNLOCKED PROGRESS NOTE New Patient Patient: Alisa STEINBERG Provider: Zev Chu MD :1955 A ge:70 Y S ex:Female Date:06/30/2025 Address:[address] [place] [address] [address] , [address], [id number] Pcp:Homero Garcia Subjective: * Chief Complaints: * 1 . New pt per pt rheumatoid arthritis. * Medical History: Objective: * Vitals: Assessment: Plan: * Treatment: * * Electronic signature of Gage Chu MD, [id number] on 07/14/2025 at 09:44 AM EDT Sign off status: Pending Visit Status: C ANC (Cancelled) * Provider: Zev Chu MD Date: 0 06/30/2025 Generated for Christine booth/Bita/Loli on: 0 07/14/2025 09:44 AM EDT
--- OUTSIDE RECORDS SUMMARY | 2025-07-06 14:49 | XMS_ITS ---
Author Organization The [facility] in [place] Address [address] [place] [address] Care Team Providers Care Complaint Operator Name Role Phone Homero Garcia Primary Care Provider REASON FOR VISIT PFT results Problems Problem Type SNOMED Code ICD Code Onset Dates Problem Status W/U Status Risk Notes Problem Pulmonary hypertension (98333539) Pulmonary hypertension (I27.20) Active confirmed Encounters Encounter Location Date Provider Diagnosis [facility] [address] [place] [address] 07/06/2025 Homero Garcia Plan Of Treatment Next Appt Details Provider Name:Homero Garcia, 10:15:00 AM, [address] [place], [address], Progress Notes * LEONARDOAlisa SolitarioDOB:1955 ( 70 yo F)Acc No.[id number]:07/06/2025 Patient: Alisa STEINBERG :1955 A ge:70 Y S ex:Female Address:[address] [place] [address] [address] , [address], [place], [address] * true * Date: Generated for Printi ng/Faxing/eTransmitting on: 0 07/14/2025 09:43 AM EDT
--- OUTSIDE RECORDS SUMMARY | 2025-07-14 09:42 | XMS_ITS | Clinical Summary ---
Author Organization [employer] tem Address [id number] [address] [place] [address] Care Team Providers Care In House Counsel Name Role Phone Riley Garcia MD Primary Care Provider [phone] Encounters Date Type Department Care Team Description 06/02/2025 Travel from Last 3 Months Social History Tobacco Use Types Packs/Day Years Used Date Smoking Tobacco: Never Assessed Childcare Answer Date Recorded Childcare Unknown 04/12/2019 Employment Answer Date Recorded Employment Unknown 04/12/2019 Comments Unknown Sex and Gender Information Value Date Recorded Sex Assigned at Not on file Legal Sex Female 1:09 PM EDT Gender Identity Not on file Sexual Orientation Not on file Plan of Treatment Health Maintenance Due Date Last Done Comments Depression Screening 1965 Tobacco Screening 1965 Adult BMI Screening 1971 DTaP,Tdap and Td Vaccines (1 - Tdap) 1972 Fall Risk Screening 2018 COVID-19 Vaccine (2024-2 6 season) 2025 11/03/2021, 04/13/2021, 03/16/2021 Influenza Vaccine 07/04/2025 07/29/2023, , 07/18/2021, Additional history exists Zoster (Shingles) Vaccine Completed 07/26/2024, Medical Devices Not on file Procedures Procedure Name Priority Date/Time Associated Diagnosis Comments T3, FREE Routine 06/02/2025 11:06 AM EDT Encounter for general adult medical examination without abnormal findings THYROID PROFILE INCLUDES TSH FT4 Routine 06/02/2025 11:06 AM EDT Encounter for general adult medical examination without abnormal findings LIPID PROFILE Routine 06/02/2025 11:06 AM EDT Encounter for general adult medical examination without abnormal findings LIVER PANEL Routine 06/02/2025 11:06 AM EDT Encounter for general adult medical examination without abnormal findings from Last 3 Months Results * Thyroid profile includes TSH FT4 (06/02/2025 11:06 AM EDT) FREE T4 0.82 0.61 - 1.60 ng/dL 06/02/2025 2:10 PM EDT [facility] TSH 2.58 0.49 - 4.67 uIU/mL 06/02/2025 2:10 PM EDT [facility] Blood Venous blood / Unknown Venipuncture / Unknown 06/02/2025 11:06 AM EDT 06/02/2025 11:07 AM EDT us Riley Garcia MD LAB BLOOD ORDERABLES Final Resu lt [facility] [address] [place] [address], * T3, free (06/02/2025 11:06 AM EDT) FREE T3 2.80 2.50 - 3.90 pg/mL 06/02/2025 2:10 PM EDT [facility] Blood Venous blood / Unknown Venipuncture / Unknown 06/02/2025 11:06 AM EDT 06/02/2025 11:07 AM EDT us Riley Garcia MD LAB BLOOD ORDERABLES Final Resu lt [facility] [address] [place] [address], * (ABNORMAL) Liver panel (06/02/2025 11:06 AM EDT) TOTAL PROTEIN 7.6 6.0 - 8.0 g/dL 06/02/2025 2:26 PM EDT [facility] ALBUMIN 3.2 3.2 - 5.3 g/dL 06/02/2025 2:26 PM EDT [facility] BILIRUBIN,TOTAL 1.7(H) 0.3 - 1.2 mg/dL 06/02/2025 2:26 PM EDT [facility] ALKALINE PHOSPHATASE 70 39 - 130 U/L 06/02/2025 2:26 PM EDT [facility] AST 52(H) <=41 U/L 06/02/2025 2:26 PM EDT [facility] ALT 35(H) <=31 U/L 06/02/2025 2:26 PM EDT [facility] BILIRUBIN,DIRECT 0.4 <=0.4 mg/dL 06/02/2025 2:26 PM EDT [facility] Blood Venous blood / Unknown Venipuncture / Unknown 06/02/2025 11:06 AM EDT 06/02/2025 11:07 AM EDT us Riley Garcia MD LAB BLOOD ORDERABLES Final Resu lt [facility] [address] [place] [id number], * Lipid profile (06/02/2025 11:06 AM EDT) CHOLESTEROL 155 150 - 200 mg/dL 06/02/2025 2:26 PM EDT [facility] TRIGLYCERIDE 75 27 - 150 mg/dL 06/02/2025 2:26 PM EDT [facility] HDL CHOLESTEROL 59 >39 mg/dL 2:26 PM EDT [facility] Comment: HDL <40 mg/dL - High Risk HDL > or = 40mg/dL- Desirable HDL >60 mg/dL - Negative Risk LDL (CALC) 81 <130 mg/dL 06/02/2025 2:26 PM EDT [facility] Comment: LDL <100 mg/dL - Desirable LDL >160 mg/dL - High Risk CHOLESTEROL:HDL 2.6 1.0 - 5.0 2:26 PM EDT [facility] VERY LOW LIPOPROTEIN 15 0 - 30 mg/dL 06/02/2025 2:26 PM EDT [facility] Blood Venous blood / Unknown Venipuncture / Unknown 06/02/2025 11:06 AM EDT 06/02/2025 11:07 AM EDT us Riley Garcia MD LAB BLOOD ORDERABLES Final Resu lt [facility] [address] [place] [address], from Last 3 Mon[address] Insurance [facility] MEDICARE Care Teams In House Counsel Relationship Specialty Start Date End Date Riley Garcia MD [address] [place] [address] PCP - General Family Medicine 06/02/25
--- OUTSIDE RECORDS SUMMARY | 2025-07-14 09:44 | XMS_ITS | Patient Health Record ---
Author Organization [facility] [place] Address [address] [place] [address] Care Team Providers Care Bus Driver Name Role Phone Homero Garcia Primary Care Provider [phone] Gage Chu [phone] Allergies Allergen (clinical drug ingredient) Drug/Non Drug Allergy documented on EMR Reaction Allergy Type Onset Date Status celecoxib CeleBREX GI upset Drug Allergy Active Results Component Value Reference Range Notes FREE T3 Reviewed date:06/02/2025 07:00:18 PM Interpretation: Performing Lab: Notes/Report: FREE T3 2.80 2.50-3.90 pg/mL PERFORMED AT [address], [place] [address] LIVER PANEL Reviewed date:06/02/2025 07:00:18 PM Interpretation: Performing Lab: Notes/Report: TOTAL PROTEIN 7.6 6.0-8.0 g/dL ALBUMIN 3.2 3.2-5.3 g/dL BILIRUBIN,TOTAL 1.7 0.3-1.2 mg/dL ALKALINE PHOSPHATASE 70 39-130 U/L AST 52 <=41 U/L ALT 35 <=31 U/L BILIRUBIN,DIRECT 0.4 <=0.4 mg/dL PERFORMED A [address], [place] [address] THYROID PROFILE Reviewed date:06/02/2025 07:00:18 PM Interpretation: Performing Lab: Notes/Report: FREE T4 0.82 0.61-1.60 ng/dL TSH 2.58 0.49-4.67 uIU/mL PERFORMED AT [address],[place] [address] LIPID PANEL Reviewed date:06/02/2025 07:00:18 PM Interpretation: Performing Lab: Notes/Report: CHOLESTEROL 155 150-200 mg/dL TRIGLYCERIDE 75 27-150 mg/dL HDL CHOLESTEROL 59 >39 mg/dL HDL >60 mg/dL - Negative Risk HDL <40 mg/dL - High Risk HDL > or = 40mg/dL- Desirable LDL (CALC) 81 <130 mg/dL LDL >160 mg/dL - High Risk LDL <100 mg/dL - Desirable CHOLESTEROL:HDL 2.6 1.0-5.0 NA VERY LOW LIPOPROTEIN 15 0-30 mg/dL PERFORMED AT [address], [place] [address] CA echo doppler complete Reviewed date:06/20/2025 05:44:10 PM Interpretation: Performing Lab: Notes/Report: Source Facility: [place] [address] Cardiology Report Signed Patient: VINCENT CARROLL MR#: [id number] : 1955 Acct:[id number] Age/Sex: 70 / F ADM Date: 06/20/25 Loc: CARD Attending Dr: SUHAIL HARRIS Ordering Physician: SUHAIL HARRIS Date of Service: 06/20/25 Procedure(s): CA echo doppler complete Accession Number(s): [id number] cc: Riley Garcia M.D.; SUHAIL HARRIS Patient Name: VINCENT CARROLL MR#: [id number] : 1955 Exam Date: 06/20/2025 Ordering Doctor: DR SUHAIL HARRIS M.D. ECHOCARDIOGRAM REPORT PROCEDURE: CA ECHO DOPPLER COMPLETE INDICATIONS: S/p TAVR (transcatheter aortic valve replacement), dyspnea, hypertension, COPD COMPARISON: None. DESCRIPTION: COMPLETE ECHOCARDIOGRAM Real-time transthoracic echocardiography with 2D, M-mode, spectral and color flow Doppler performed. QUALITY: Technical quality was good. LEFT VENTRICLE: Normal chamber size. Moderate to severe concentric hypertrophy with significantly thickened septal wall measuring 1.5 cm. Hyperdynamic systolic function. Mild ventricular outflow obstruction, peak gradient 19 mmHg with a Valsalva maneuver. Estimated LVEF is 75%. LV EF: Normal left ventricular ejection fraction, (>55%). DIASTOLIC: Grade II diastolic dysfunction. ATRIAL SEPTUM: Visually appears intact. LEFT ATRIUM: Mild dilatation. RIGHT ATRIUM: Normal chamber size. RIGHT VENTRICLE: Normal chamber size. Normal right ventricular systolic function. TRICUSPID VALVE: Normal mobility and thickness. No stenosis with mild regurgitation. Doppler studies reveal moderately (45-60) elevated right sided pressures. RVSP 50 mmHg MITRAL VALVE: Normal mobility and thickness. No evidence of mitral valve stenosis. There is no mitral annular calcification. Mild to moderate mitral regurgitation. AORTIC VALVE: Bio-Prosthetic valve appears well seated in the aortic position with normal Doppler flow. Mean gradient 12 mmHg [high LVOT velocity]. No aortic regurgitation. AORTIC ROOT: Normal diameter and appearance. PULMONIC VALVE: Normal thickness and mobility. No stenosis. No regurgitation. PERICARDIUM: Trivial pericardial effusion. IVC: Collapses with inspirations. PLEURA: CONCLUSION: 1. Moderate to severe concentric left ventricular hypertrophy with hyperdynamic systolic function and mild LVOT obstruction with Valsalva maneuver, peak gradient 19 mmHg. Estimated LVEF is 75%. 2. Normal right ventricular size and systolic function. 3. Bioprosthetic aortic valve is well-seated with normal Doppler flows and no regurgitation. 4. Mild to moderate mitral regurgitation. 5. Mild tricuspid regurgitation. 6. Moderately elevated right-sided pressures. RVSP is 50 mmHg. Adult Echocardiography Procedure Report Left Ventricle LVEDD (3.7 - 5.6 cm): 4.23 cm LVESD (2.2 - 4.0 cm): 2.77 cm LVIVS thickness (0.6 - 1.2 cm): 1.51 cm LVPW thickness (0.5 - 1.0 cm): 0.87 cm e': 0.07 m/s E - e': 10.25 LVOT Max Gradient: 17.57 mm[Hg] LVOT Area (cm2): 2.10 m/s Peak Velocity (LVOT): 2.10 m/s Mean Velocity (LVOT): 1.24 m/s LVOT Diameter 2.02 cm Left Ventricular Ejection Fraction: 75 % Left Atrium LA Volume Index (2D A2C): 38.49 ml/m2 Left Atrium Systolic Dimension: 3.46 cm Mitral Valve MV E to A Ratio: 0.63 Mitral Valve A-Wave Peak Velocity: 1.09 m/s Mitral Valve E-Wave Peak Velocity: 0.69 m/s Right Ventricle Aorta AO Root Diam: 3.08 cm Aortic Valve AoV Area (Peak Arturo): 2.63 cm2, 2.63 cm2 AoV Area (VTI): 2.56 cm2, 2.56 cm2 Peak Velocity(Antegrade Flow): 2.56 m/s Peak Gradient(Antegrade Flow): 26.24 mm[Hg] Mean Velocity(Antegrade Flow): 1.55 m/s Mean Gradient(Antegrade Flow): 11.82 mm[Hg] Velocity Time Integral: 44.50 cm Tricuspid Valve Peak Velocity (Regurgitant Flow): 2.81 m/s, 3.43 m/s, 2.73 m/s Pulmonic Valve Peak Velocity: 1.26 m/s Peak Gradient: 6.34 mm[Hg] Right Atrium Dictated by: Suhail Harris M.D. on 06/20/2025 at 17:23 Approved by: Suhail Harris M.D. on 06/20/2025 at 17:33 Dictated By: SUHAIL HARRIS Signed By: 06/20/251733 DD/ 33 TD/TT: Piano Mechanic: [place] [address] Cardiology Report Signed Patient: VINCENT CARROLL MR#: [id number] : 1955 Acct:[id number] Age/Sex: 70 / F ADM Date: 06/20/25 Loc: CARD Attending Dr: SUHAIL HARRIS Ordering Physician: SUHAIL HARRIS Date of Service: 06/20/25 Procedure(s): CA ech o doppler complete Accession Number(s): [id number] cc: Riley Garcia M.D. ; SUHAIL HARRIS Patient Name: VINCENT CARROLL MR#: [id number] : 1955 Exam Date: 06/20/2025 Ordering Doctor: DR SUHAIL HARRIS M.D. ECHOCARDIOGRAM REPORT PROCEDURE: CA ECHO DOPPLER COMPLETE INDICATIONS: S/p TAV R (transcatheter aortic valve replacement), dyspnea, hypertension, COPD COMPARISON: None. DESCRIPTION: COMPLET E ECHOCARDIOGRAM Real-time transthoracic echocardiography wit h 2D, M-mode, spectral and color flow Doppler performed. QUALITY: Technical quality was good. LEFT VENTRICLE: Norm al chamber size. Moderate to severe concentric hypertrophy with significantly thickened septal wall measuring 1.5 cm. Hyperdynamic systoli c function. Mild ventricular outflow obstruction, peak gradient 19 mmHg wit h a Valsalva maneuver. Estimated LVEF is 75%. LV EF: Normal left ventricular ejection fraction, (>55%). DIASTOLIC: Grade II diastolic dysfunction. ATRIAL SEPTUM: Visua lly appears intact. LEFT ATRIUM: Mild dilatation. RIGHT ATRIUM: Normal chamber size. RIGHT VENTRICLE: Nor mal chamber size. Normal right ventricular systolic function. TRICUSPID VALVE: Nor mal mobility and thickness. No stenosis with mild regurgitation. Doppl er studies reveal moderately (45-60) elevated right sided pressures. RVSP 50 mmHg MITRAL VALVE: Normal mobility and thickness. No evidence of mitral valve stenosis. There is n o mitral annular calcification. Mild to moderate mitral regurgitation. AORTIC VALVE: Bio-Prosthetic valve appears well seated in the aortic position with normal Doppler flow. Mean gradient 12 mmHg [high LVOT velocity]. No aortic regurgitation. AORTIC ROOT: Normal diameter and appearance. PULMONIC VALVE: Norm al thickness and mobility. No stenosis. No regurgitation. PERICARDIUM: Trivial pericardial effusion. IVC: Collapses with inspirations. PLEURA: CONCLUSION: 1. Moderate to sever e concentric left ventricular hypertrophy with hyperdynamic systoli c function and mild LVOT obstruction with Valsalva maneuver, peak gradi ent 19 mmHg. Estimated LVEF is 75%. 2. Normal right ventricular size and systolic function. 3. Bioprosthetic aor tic valve is well-seated with normal Doppler flows and no regurgitation. 4. Mild to moderate mitral regurgitation. 5. Mild tricuspid regurgitation. 6. Moderately elevat ed right-sided pressures. RVSP is 50 mmHg. Adult Echocardiograp hy Procedure Report Left Ventricle LVEDD (3.7 - 5.6 cm) : 4.23 cm LVESD (2.2 - 4.0 cm) : 2.77 cm LVIVS thickness (0.6 - 1.2 cm): 1.51 cm LVPW thickness (0.5 - 1.0 cm): 0.87 cm e': 0.07 m/s E - e': 10.25 LVOT Max Gradient: 1 7.57 mm[Hg] LVOT Area (cm2): 2.10 m/s Peak Velocity (LVOT) : 2.10 m/s Mean Velocity (LVOT) : 1.24 m/s LVOT Diameter 2.02 cm Left Ventricular Eje ction Fraction: 75 % Left Atrium LA Volume Index (2D A2C): 38.49 ml/m2 Left Atrium Systolic Dimension: 3.46 cm Mitral Valve MV E to A Ratio: 0.63 Mitral Valve A-Wave Peak Velocity: 1.09 m/s Mitral Valve E-Wave Peak Velocity: 0.69 m/s Right Ventricle Aorta AO Root Diam: 3.08 cm Aortic Valve AoV Area (Peak Arturo): 2.63 cm2, 2.63 cm2 AoV Area (VTI): 2.56 cm2, 2.56 cm2 Peak Velocity(Antegr damien Flow): 2.56 m/s Peak Gradient(Antegr damien Flow): 26.24 mm[Hg] Mean Velocity(Antegr damien Flow): 1.55 m/s Mean Gradient(Antegr damien Flow): 11.82 mm[Hg] Velocity Time Integr al: 44.50 cm Tricuspid Valve Peak Velocity (Regurgitant Flow): 2.81 m/s, 3.43 m/s, 2.73 m/s Pulmonic Valve Peak Velocity: 1.26 m/s Peak Gradient: 6.34 mm[Hg] Right Atrium Dictated by: Suhail Harris M.D. on 06/20/2025 at 17:23 Approved by: Suhail Harris M.D. on 06/20/2025 at 17:33 Dictated By: SUHAIL HARRIS Signed By: 06/20/25 1734 DD/ 1734 TD/TT: Piano Mechanic: HEMOGLOBIN Reviewed date:07/05/2025 10:27:02 PM Interpretation: Performing Lab: Notes/Report: [facility] , Hemoglobin 14.1 12.0-16.0 g/dL Performing Lab: see note ML - [facility] Reason For Referral Diagnosis 1 Rheumatoid arthritis (M06.9) Referral Organization [facility] Referring Provider First Name Homero Referring Provider Last Name Jose Referring Provider Speciality Family Med icine Referred Organization [facility] Rheumatology Referred Provider KimberlybhaveshGabbi townsend Referred Address [address],[place] ,[place], [place],[address],[place] Referred Provider Specialty Rheumatology Referral Priority Routine Diagnosis 1 Cervical radiculopat hy (M54.12) Referral Organization [facility] Referring Provider First Name Homero Referring Provider Last Name Jose Referring Provider [facility] Referred Provider Pain Management, [facility] Referred Provider Specialty Pain Medicin e Referral Priority Routine Diagnosis 1 Rheumatoid arthritis (M06.9) Referral Organization [facility] Referring Provider First Name Homero Referring Provider Last Name carroll Referring Provider [facility] Referred Provider Specialty Rheumatology Referral Priority Routine Medications Medication SIG (Take, Route, Frequency, Duration) Notes Start Date End Date Status DULoxetine HCl 60 MG 1 capsule Orally On ce a day 06/01/2025 Active Aspirin Adult Low Dose 81 MG 1 tablet Orally Once a day 06/01/2025 Active predniSONE 10 MG 1 tab Orally Once a day for 30 days 06/01/2025 Active Albuterol Sulfate HFA 108 (90 Base) MCG/ACT 2 puff as needed Inhalation every 4 hrs 06/01/2025 Active Potassium Chloride Kiesha ER 20 MEQ 1 tablet with food Orally twice daily 06/01/2025 Active Omeprazole 40 MG 1 capsule 1/2 to 1 h our before morning meal Orally Once a day 06/01/2025 Active Montelukast Sodium 10 MG 1 tablet Orally Once a day 06/01/2025 Active Metoprolol Succinate ER 25 MG 1 tablet Orally Once a day 06/01/2025 Active Methocarbamol 750 MG 1 tablet Orally thr ee times daily PRN 06/01/2025 Active Magnesium 250 MG 2 tablet with a meal Orally Once a day 06/01/2025 Active Lovastatin 40 MG 1 tablet Orally with evening meal 06/01/2025 Active Zolpidem Tartrate 5 MG 1 tablet Orally a t bedtime PRN 06/01/2025 Active Gabapentin 300 MG 1 capsule Orally thr ee times daily for 30 days 06/01/2025 Active Zetia 10 MG 1 tablet Orally Once a day for 30 days 06/07/2025 Active Furosemide 40 MG 1 tablet Orally twic e daily 06/01/2025 Active Wegovy 0.5 MG/0.5ML Inject 0.5 mL Subcutaneous once weely 06/01/2025 Active Vitamin D3 25 MCG (1000 UT) 1 tablet Ora lly Once a day 06/01/2025 Active Social History [...] Tobacco non-user Ex -moderate cigarette smoker (10-19/day) AUDIT-C (Standard) Question Answer Notes Did you have a drink containing alcohol in the p ast year? No Points 0 Interpretation Negative Problems Problem Type SNOMED Code ICD Code Onset Dates Problem Status W/U Status Risk Notes Problem Rheumatoid arthritis (64958803) Rheumatoid arthritis (M06.9) Active confirmed Problem COPD - Chronic obstructive pulmonary disease (11233498) COPD (chronic obstructive pulmonary disease) (J44.9) Active confirmed Problem Gastroesophageal reflux disease (681699223) GERD (gastroesophageal reflux disease) (K21.9) Active confirmed Problem Cervical radiculopathy (81746684) Cervical radiculopathy (M54.12) Active confirmed Problem Insomnia (496362006) Insomnia (G47.00) Active c onfirmed Problem Coronary artery disease (62274490) CAD (coronary artery disease) (I25.10) Active confirmed Problem Cirrhotic (763008647) Cirrhosis (K74.60) Active confirmed Problem Seasonal allergy (985799795) Seasonal allergies (J30.2) Active confirmed Problem Liver disease (962029512) Liver disease (K76.9) Active confirmed Problem Spasm of back muscle s (134859362) Back spasm (M62.830) Active confirmed Problem Hypercholesterolemia (91054167) Hypercholesterolemia (E78.00) Active confirmed Problem Pulmonary hypertension (71129665) Pulmonary hypertension (I27.20) Active confirmed Vital Signs Blood pressure diastolic 80 mm Hg 06/23/2025 Height 62 in 06/23/2025 Blood pressure systolic 118 mm Hg 06/23/2025 Weight 166.6 lbs 06/23/2025 BMI 30.47 kg/m2 06/23/2025 Procedures Procedure Date Ordered Date Performed Result Body Sit e PFT Complete 06/20/2025 N/A Encounters Encounter Location Date Provider Diagnosis [facility] [address] [place] [address] 06/01/2025 Homero Garcia [facility] [address] [place] [address] 06/01/2025 Homero Garcia Wellness examination Z00.00 [facility] [address] [place] [address] 06/02/2025 Homero Garcia [facility] [address] [place] [address] 06/07/2025 Homero Garcia [facility] [address] [place] [facility] [address] 06/14/2025 Homero Garcia [facility] [address] [place] [address] 06/20/2025 Homero Garcia COPD (chronic obstru ctive pulmonary disease) J44.9 [facility] [address] [place] [facility] [address] 06/21/2025 Homero Garcia Rheumatoid arthritis M06.9 [facility] [address] [place] [address] 06/23/2025 Homero Garcia [facility] [address] [place] [address] 06/28/2025 Homero Garcia Rheumatoid arthritis M06.9 [facility] [address] [place] [address] 07/06/2025 Homero Garcia [facility] [address] [place] [address] 06/01/2025 Homero Garcia GERD (gastroesophage al reflux disease) K21.9 ; Insomnia G47.00 ; CAD (coronary artery disease) I25.10 ; Back spasm M62.830 ; Hypercholesterolemia E78.00 and Cirrhosis K74.60 [facility] [address] [place] [address] 06/23/2025 Homero Garcia Cervical radiculopat hy M54.12 Assessments Encounter Date Diagnosis (ICD Code) Assessment Notes Treatment Notes Treatment Clinical Notes Section Notes 06/01/2025 GERD (gastroesophage al reflux disease) (ICD-10 - K21.9) 06/01/2025 Insomnia (ICD-10 - G47.00) 06/23/2025 Cervical radiculopat hy (ICD-10 - M54.12) 06/01/2025 Wellness examination (ICD-10 - Z00.00) 06/20/2025 COPD (chronic obstructive pulmonary disease) (ICD-10 - J44.9) 06/21/2025 Rheumatoid arthritis (ICD-10 - M06.9) 06/28/2025 Rheumatoid arthritis (ICD-10 - M06.9) 06/01/2025 CAD (coronary artery disease) (ICD-10 - I25.10) 06/01/2025 Back spasm (ICD-10 - M62.830) 06/01/2025 Hypercholesterolemia (ICD-10 - E78.00) 06/01/2025 Cirrhosis (ICD-10 - K74.60) 06/23/2025 Other Recommended to rest and use a heating pad on the area. Take NSAIDs for pain as needed Plan Of Treatment Pending Test Test Name Order Date PFT Complete 06/20/2025 LIPID PROFILE 06/01/2025 LIVER PROFILE 06/01/2025 THYROID PANEL (T4/TSH/FREE T3) Next Appt Details Provider Name:Homero Garcia, 10:15:00 AM, [address] [place], [address], Insurance Providers Payer Name Payer Address Payer Phone Subscriber Number Group Number Insured Name Patient Relationship to Insured Coverage Start Date Coverage End Date [employer] [address] [address] [place], [place] [phone] [id number] Vincent Carroll Self - patient is the insured Medical (General) History Medical History History ICD Code GERD (gastroesophageal reflux disease) K 21.9 Seasonal allergies J30.2 Mycobacterium 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
--- OUTSIDE RECORDS SUMMARY | 2025-07-14 09:44 | XMS_ITS | Clinical Summary ---
Author Organization [facility] Address [address] [place] [address] Care Team Providers Care Felling Machine Operator Name Role Phone Riley Garcia MD Primary Care Provider [phone] Allergies Active Allergy Reactions Criticality Noted Date Comments Celecoxib Nausea And Vomiting,Nausea Only Medium 06/10/2011 Hydroxychloroquine Rash Low 12/13/2024 Metoclopramide Other,Unknown Medium 08/21/2020 Dystonic reaction - restless legs Tiotropium Headache,Rash Low 03/29/2020 Tiotropium [place] Headache,Rash Low 11/19/2018 Bad headaches/rash Medications fluticasone-umeclid [...] 10 mg tabletIndications:C oronary artery disease involving [place] coronary artery of [place] heart without angina pectoris,Mixed hyperlipidemia Take 1 [...] Encounters Date Type Department Care Team Description 06/22/2025 Telephone [facility] [address] [place] [address] Annemarie Oakley MA 06/06/2025 3:15 PM EDT Office Visit [facility] [address] [place] [address] Elier Harris MD S/P TAVR (transcatheter aortic valve replacement) (Primary Dx); Coronary artery disease involving [place] coronary artery of [place] heart without angina pectoris; Chronic diastolic congestive [...] 06/06/2025 4:26 PM EDT Plan of Treatment Upcoming Encounters Date Type Department Care Team (Late st Contact Info) Description 09/05/2025 10:15 AM EST Office Visit [facility] [address] [place] [address] Elier Harris MD [address] [facility] [place] [address] Health Maintenance Due Date Last Done Comments CT Colonography 1955 FIT-DNA 1955 FIT 1955 FOBT 1955 Sigmoidoscopy 1955 Depression Screening 1965 Adult Tetanus 1975 Fall Risk Screening 2018 COVID-19 Vaccine ( season) 2025 11/03/2021, 04/13/2021, 03/16/2021 Influenza Vaccine (#1) 2025 [...] patient's age to complete this topic Insurance [facility] Care Teams Felling Machine Operator Relationship Specialty Start Date End Date Riley Garcia MD [address] [facility] [address] [address] PCP - General Family Medicine 06/06/25
--- NOTE | 2025-07-14 10:16 | P.CN_ITS ---
Consult Note: HPI Data of Consult Patient: new to practice Consult date: 07/14/25 Requesting Physician: Melissa Ramirez NP Primary Care Provider: Riley Garcia MD Consult Narrative Reason for consult: neck, right shoulder, arm pain Narrative: Alisa Carroll a pleasant 70 year old female presents for evaluation and management of neck and RUE pain. notes pain > 12 months unresponsive to heat, ice, tylenol, ibuprofen, duloxetine, gabapentin. Pt denies falls/injury. Reports pain 4/10 aching with numbness tingling weakness of RUE. no available imaging. has not attempted PT. utilizing ibuprofen 400mg prn, gabapentin 300mg BID, duloxetine 60mg daily. is on plavix. cc:: CC: Melissa Ramirez NP Review of Systems ROS Musculoskeletal Reports: back pain, neck pain and extremity pain Exam Constitutional Documenting provider has reviewed patient's vital signs: yes Common normals: no apparent distress, oriented x3, healthy appearing, alert and well nourished General appearance: cooperative HENMT Common normals: normocephalic, hearing grossly normal bilaterally and moist oral mucous membranes Head and scalp: normocephalic Eye Common normals: PERRL Pupil: PERRL Neck & C-Spine Common normals: full ROM General: normal visual inspection Cervical spine: cervical ROM abnormal rotation to the left decreased and rotation to the right decreased, pain with cervical ROM and cervical spine tenderness Other: decreased sensation bilateral C5,6,7 strength 4/5 in BUE increased pain with left> right facet loading Chest Common normals: inspection of chest normal Respiratory Common normals: normal respiratory effort, no retractions and no use of accessory muscles Neuro Common normals: oriented x3 Sensorium/orientation: alert Psych Common normals: mental status grossly normal, thought process normal, cooperative, affect normal, speech normal and activity/motor behavior normal Speech: normal speech Thought process: normal thought process Results Additional Findings Additional findings: If on a controlled substance or opioids, I have checked an OARRS report on this patient and there are no aberrancies noted in the prescribing history.??If on a controlled substance or opioid a drug screen was completed and reviewed within the last year, and if there has not been a drug screen completed we ordered one today to monitor higher risk, state monitored pain medication use. As part of providing excellent, safe, comprehensive care, the following was completed at our patient's visit: 1. A medication reconciliation and review to ensure accurate knowledge of current/active medications, including asking our patients to inform us about any [id number] medications or herbal remedies/nutritional supplements/alternative remedies. 2. A review to specifically ensure our patients have had annual screening for screening for depression, screening for tobacco use, and screening for unhealthy alcohol use. For concerning screenings had a discussion with the patient, provided patient education, and recommended follow-up with primary care provider when appropriate. If patient noted with a risk of falling, they received education on strength, gait, and balance training to prevent future risk of falling. Portions of this note may have been carried over from the previous visit and updated as appropriate. Please note this office utilizes paper charting in addition to the electronic medical record. A list of current medications, vitals, and PMH is available there as the clinical staff outside of myself do not have access to [employer] charting during the clinic day operations. As part of providing quality comprehensive care the current medications, vitals, and PMH were reviewed in the paper chart. Assessment and Plan Assessment and Plan (1) Cervical radiculopathy: (2) Cervical spondylosis: Plan update cervical xray to assess chronic pain, cervical spondylosis, cervical radiculopathy PT for cervical spondylosis and cervical radiculopathy defer additional medication management at this time, high risk for polypharmacy and falls. unsure why pt is taking gabapentin 300mg BID instead of TID as noted on last OARRS fill. advised pt to check her prescription f/u to review imaging and response to PT, will need updated cervical MRI prior to interventional therapy as discussed with pt today
== END 2025-07-14 09:41 | disposition home or self-care (01) ==
LOC: PM 09:40
PROVIDERS: PCP Family Medicine; Visit Provider Nurse Practitioner
DX: M47.22 Other spondylosis with radiculopathy, cervical region (principal)
CPT/HCPCS: 72050; G0463

== ENCOUNTER 2025-07-14 10:33 | Outpatient (OUT) | payer MEDICARE, SELFPAY ==
--- OUTSIDE RECORDS SUMMARY | 2025-07-14 10:38 | XMS_ITS | Clinical Summary ---
Author Organization [facility] Address [address] [place] [address] Care Team Providers Care Gin Operator Name Role Phone Riley Garcia MD Primary Care Provider [phone] Allergies Active Allergy Reactions Criticality Noted Date Comments Celecoxib Nausea And Vomiting,Nausea Only Medium 06/10/2011 Hydroxychloroquine Rash Low 12/13/2024 Metoclopramide Other,Unknown Medium 08/21/2020 Dystonic reaction - restless legs Tiotropium Headache,Rash Low 03/29/2020 Tiotropium [place] Headache,Rash Low 11/19/2018 Bad headaches/rash Medications fluticasone-umeclid [...] 10 mg tabletIndications:C oronary artery disease involving [place] coronary artery of [place] heart without angina pectoris,Mixed hyperlipidemia Take 1 [...] Type Department Care Team Description 06/22/2025 Telephone [facility] [address] [place] [address] Annemarie Oakley MA 06/06/2025 3:15 PM EDT Office Visit [facility] [address] [place] [address] Elier Harris MD S/P TAVR (transcatheter aortic valve replacement) (Primary Dx); Coronary artery disease involving [place] coronary artery of [place] heart without angina pectoris; Chronic diastolic congestive [...] Description 09/05/2025 10:15 AM EST Office Visit [facility] [address] [place] [address] Elier Harris MD [address] [facility] [place] [address] Health Maintenance Due Date Last [...] patient's age to complete this topic Insurance [facility] Care Teams Gin Operator Relationship Specialty Start Date End Date Riley Garcia MD [address] [facility] [place] [address] [address] PCP - General Family Medicine 06/06/25
--- NOTE | 2025-07-14 10:39 | XR_ITS ---
The [address] [address] Patient Name: VINCENT MCKINNON MRN: [id number] date: 1955 Sex: F Assigned Patient Location: [facility] Current Patient Location: Accession/Order Number: [id number] Exam Date: 07/14/2025 10:40 Report Date: 07/14/2025 11:25 At the request of: LANDON DAVALOS NP Procedure: XR cervical spine 5V CERVICAL SPINE - 5 views: CLINICAL HISTORY: cervical spondylosis and right-sided radiculopathy COMPARISON: None TECHNIQUE: AP, lateral, both oblique and odontoid views were obtained. There is osteopenia this slightly limits assessment. There is suggestion of incomplete segmentation at C2-3. There is no acute compression fracture. There may be slight anterolisthesis of C3 on C4 . The disc spaces are preserved. There is mild endplate spurring and bilateral facet hypertrophy. There is mild bony foraminal encroachment at C4-5 and C5-6 on both sides as well as at C3-4 on the left. The atlantoaxial relationship, as visualized is maintained. There is no prevertebral soft tissue swelling. XR/XR cervical spine 5V IMPRESSION: OSTEOPENIA AND DEGENERATIVE CHANGES. NO ACUTE BONY FINDINGS Impression dictated by: Meli Seo M.D. 07/14/2025 11:25 AM Dictation Location: [place] [address] Electronically authenticated by: [id number] Date: 07/14/2025 11:25
== END 2025-07-14 10:34 | disposition home or self-care (01) ==
LOC: RAD 10:34
PROVIDERS: PCP Family Medicine; Visit Provider Nurse Practitioner
DX: M47.22 Other spondylosis with radiculopathy, cervical region (principal)
CPT/HCPCS: 72050

== ENCOUNTER 2025-09-07 12:52 | Outpatient (OUT) | payer MEDICARE, SELFPAY ==
--- OUTSIDE RECORDS SUMMARY | 2025-08-23 15:03 | XMS_ITS | Encounter Summary ---
Author Organization [employer] tem Address [id number] [address] [place] [address] Care Team Providers Care Utilities And Maintenance Supervisor Name Role Phone Benja Garcia MD Primary Care Provider [phone] Reason for Referral * Misc (Routine) - Pending ReviewSpecialtyDiagnoses / ProceduresReferred By ContactReferred To Contact Diagnoses Pneumonia Procedures Follow-up with primary care provider Marysol Montoya MD [address], [facility] [address] [place] [address] Phone: tel: fax: Referral IDStatusReasonStart DateExpiration DateVisits RequestedVisits [id number] * Misc (Routine) - Pending ReviewSpecialtyDiagnoses / ProceduresReferred By ContactReferred To Contact Procedures Adult diet Marysol Montoya MD [address], [facility] [address] [place] [address] Phone: tel: fax: Referral IDStatusReasonStart DateExpiration DateVisits RequestedVisits [id number] Reason for Visit * ReasonCommentsAltered Mental Status * Auth/CertSpecialtyDiagnoses / ProceduresReferred By ContactReferred To Contact Diagnoses Chest pain Pneumonia Shaka Gardiner MD [address], [facility] [address] [place] [address] Phone: tel: fax: Referral IDStatusReasonStart DateExpiration DateVisits RequestedVisits [id number] Encounter Details DateTypeDepartmentCare Team (Latest Contact Info)Lgveggegkkh50/21/2025 4:03 PM EDT - 08/25/2025 1:52 PM EDTHospital Encounter [facility] [address] [place] [address] Wes Ruiz DO [address] [place] [address] Shaka Gardiner MD [facility] [facility] [address] [place] [address] Marysol Montoya MD [facility] , [facility] [address] [place] [id number] Pneumonia (Primary Dx); Hypokalemia Discharge Disposition: Home Social History Tobacco UseTypesPacks/DayYears UsedDateSmoking Tobacco: NeverSmokeless Tobacco: NeverAlcohol UseStandard Drinks/WeekCommentsNot Currently0 (1 standard drink = 0.6 oz pure alcohol)ChildcareAnswerDate FlrbvuooBplwhzcwuWyrxqib15/10/2019 EmploymentAnswerDate DztxhrvkSybbtaliatHmnamsp61/10/2019Hunger ScreeningAnswer Date RecordedWithin the past 12 months we worried whether our food would run out before we got money to buy more.Never True08/24/2025Within the past 12 months the food we bought just didn't last and we didn't have money to get more.Never True08/24/2025CommentsUnknownSex and Gender InformationValueDate RecordedSex Assigned at BirthNot on fileLegal VyeMknszk25/04/2015 1:09 PM EDT Gender IdentityNot on fileSexual OrientationNot on filedocumented as of this encounter Last Filed Vital Signs Vital SignReadingTime TakenCommentsBlood Agbhlhby100/5408/24/2025 7:36 PM EDT Ssvvk105308/25/2025 8:12 AM WQVNtmxddfsuuz73.4 ??C (97.5 ??F)08/25/2025 8:12 AM EDTRespiratory Ubtc7814 8:12 AM EDTOxygen Gdafmrkdfy13%08/25/2025 1:11 PM EDTInhaled Oxygen Concentration--Wgpedc47 kg (169 lb 11.2 oz)08/23/2025 9:00 PM MIRGvfywm083.9 cm (5' 0.98 )08/23/2025 9:00 PM EDTBody Mass Index32.08 08/23/2025 9:00 PM EDTdocumented in this encounter Discharge Summaries * Marysol Montoya MD - 08/25/2025 3:03 PM EDT Images from the original note were not included. [facility] - [address] [address] Hospital Medicine Discharge Summary Patient: Alisa Carroll Date of : 1955 Room: Encounter date: 08/25/25 Hospital Day: 3 DATE OF ADMISSION: 08/23/2025 DATE OF DISCHARGE:08/25/2025 DISCHARGE DIAGNOSES Principal Problem: Pneumonia Active Problems: Chronic bilateral low back pain without sciatica Gastroesophageal reflux disease Hyperlipidemia DDD (degenerative disc disease), lumbar Primary insomnia Cirrhosis of liver without ascites (CMS-HCC) ILD (interstitial lung disease) (CMS-HCC) COPD exacerbation (CMS-HCC) Infrarenal abdominal aortic aneurysm (AAA) without rupture Acute on chronic diastolic congestive heart failure (CMS-HCC) Hypokalemia Hypertension H/O aortic valve replacement History of coronary artery stent placement Chronic respiratory failure with hypoxia (CMS-HCC) PCP: BENJA GARCIA MD HOSPITAL COURSE SUMMARY Alisa Carroll is a 70 y.o. female who presents with presents to the ED via EMS for evaluation of AMS. Son states that pt has been non-coherent like she is in a daze for the past few days. Son reports that the pt has been in pain and did fall a couple of times. Pt notes that she has been having diarrhea, feels SoB, and has had a non-productive cough. Pt denies urinary changes or burning with urination, and denies pain. Son states that this has happened before. Son reports that the pt just had an aortic valve replacement about 5 months ago. Son notes that the pt was on oxygen at night and as-needed during the day, but since they just moved here they do not have her oxygen. PMH significant for: GERD, CHF, emphysema, RA, aortic valve replacement Initial ED workup: troponins 128, 113, BNP 914, procalcitonin 0.27, blood cultures neg x24hrs, lactate 2.0, K 2.6, bilirubin 5.0 CXR: Right upper lobe infiltrate. Small pleural effusions. CT brain w/o contrast: 1. No acute intracranial abnormalities. 2. White matter changes, most commonly attributable to the sequela of chronic ischemic small vesseldisease. 3. Please note, hyperacute ischemia can remain occult on CT. If there is persistent concern for acute ischemia, further evaluation with a dedicated MRI is recommended as clinically indicated. CT abdomen and pelvis with contrast: 1. No acute abnormalities in the abdomen and pelvis. 2. Cirrhosis with recanalization of the periumbilical vein and splenomegaly, compatible with portalhypertension. There is no ascites. 3. Trace left pleural effusion and mild bibasilar atelectasis. 4. Borderline infrarenal abdominal aortic aneurysm measuring up to 2.9 cm. 5. Multiple chronic and incidental CT findings, as above. Sepsis suspected, no-not clinically evident at this time. Pneumonia COPD exacerbation Interstitial lung disease Zithromax x1 in ED, discontinued IV rocephin daily Doxycycline BID Mucinex BID Duonebs Q6H scheduled Breo ellipta, Incruse ellipta Solumedrol 40mg IV BID while IP Continue home Singulair On 2L NC, baseline DC on prednisone, PO atb Acute on chronic diastolic congestive heart failure CXR- RUL infiltrate, small pl effusions BNP 914 IV lasix 40mg daily while IP Discharge Day Progress Note 08/25/25 No overnight events and remains hemodynamically stable. Pt medically ready for discharge. Has home O2 set up and supplies needed to monitor O2. Follow up with PCP in 7-14 days. Review of Systems Constitutional: Negative for chills, fatigue and fever. Respiratory: Negative for cough, shortness of breath and wheezing. Cardiovascular: Negative for chest pain and leg swelling. Gastrointestinal: Negative for abdominal pain, blood in stool, constipation, diarrhea, nausea and vomiting. Genitourinary: Negative for difficulty urinating. Skin: Negative for rash and wound. Neurological: Negative for dizziness, weakness and headaches. Psychiatric/Behavioral: Negative for sleep disturbance. BP 128/54 Pulse 70 Temp 36.4 ??C (97.5 ??F) (Oral) Resp 14 Ht 154.9 cm (5' 0.98 ) Wt 77 kg (169 lb 11.2 oz) SpO2 93% BMI 32.08 kg/m?? Temp: [36.4 ??C (97.5 ??F)-36.9 ??C (98.4 ??F)] 36.4 ??C (97.5 ??F) Pulse: [62-70] 70 Resp: [12-18] 14 BP: (128)/(54) 128/54 SpO2: [92 %-97 %] 93 % O2 Device: None (Room air) O2 Flow Rate (L/min): [1 L/min] 1 L/min Intake/Output Summary (Last 24 hours) at 08/25/2025 1816 Last data filed at 08/25/2025 0900 Gross per 24 hour Intake 200 ml Output -- Net 200 ml Physical Exam Constitutional: General: She is not in acute distress. HENT: Head: Normocephalic. Nose: Nose normal. Mouth/Throat: Mouth: Mucous membranes are moist. Eyes: Pupils: Pupils are equal, round, and reactive to light. Cardiovascular: Rate and Rhythm: Normal rate and regular rhythm. Heart sounds: Normal heart sounds. Pulmonary: Effort: Pulmonary effort is normal. Breath sounds: Normal breath sounds. No decreased breath sounds, wheezing, rhonchi or rales. Abdominal: General: Abdomen is flat. Palpations: Abdomen is soft. Tenderness: There is no abdominal tenderness. Musculoskeletal: Right lower leg: No edema. Left lower leg: No edema. Skin: General: Skin is warm and dry. Capillary Refill: Capillary refill takes less than 2 seconds. Coloration: Skin is not pale. Findings: No rash. Neurological: General: No focal deficit present. Mental Status: Mental status is at baseline. Psychiatric: Behavior: Behavior is cooperative. Code Status: Prior Labs Recent Results (from the past 48 hours) Blood culture Collection Time: 08/23/25 7:37 PM Specimen: Blood, Venous Result Value Ref Range CULTURE RESULTS NO GROWTH AT 36 HOURS Troponin I, High Sensitivity 1 Hour Collection Time: 08/23/25 7:37 PM Result Value Ref Range TROPONIN I, HIGH SENSITIVITY 113 (H) <16 ng/L Narrative Elevations of hs-Troponin may be due to causes other than myocardial ischemia. Recommend serial hs-Troponin testing be performed. For the initial evaluation and management of chest pain patients, refer to the algorithms linked below. Emergency Patient: [email or web address] Inpatient: [email or web address] Extra Tubes Collection Time: 08/23/25 7:37 PM Narrative The following orders were created for panel order Extra Tubes. Procedure Abnormality Status --------- ------ SST TOP[[id number]] Final result Please view results for these tests on the individual orders. SST TOP Collection Time: 08/23/25 7:37 PM Result Value Ref Range Extra Tube Auto Resulted Extra Tubes Collection Time: 08/24/25 5:24 AM Narrative The following orders were created for panel order Extra Tubes. Procedure Abnormality Status --------- ------ Light Blue Top[[id number]] Final result Please view results for these tests on the individual orders. Light Blue Top Collection Time: 08/24/25 5:24 AM Result Value Ref Range Extra Tube Auto Resulted Comprehensive metabolic panel Collection Time: 08/24/25 5:25 AM Result Value Ref Range SODIUM 137 134 - 146 mmol/L POTASSIUM 2.6 (LL) 3.5 - 5.0 mmol/L CHLORIDE 100 98 - 109 mmol/L CARBON DIOXIDE 27 22 - 32 mmol/L ANION GAP 10 5 - 15 mmol/L BLOOD UREA NITROGEN 12 5 - 27 mg/dL CREATININE 0.82 0.40 - 1.00 mg/dL GLUCOSE 96 65 - 99 mg/dL CALCIUM 7.9 (L) 8.5 - 10.5 mg/dL TOTAL PROTEIN 6.0 6.0 - 8.0 g/dL ALBUMIN 2.2 (L) 3.2 - 5.3 g/dL ALKALINE PHOSPHATASE 54 39 - 130 U/L AST 28 <=41 U/L ALT 18 <=31 U/L BILIRUBIN,TOTAL 3.7 (H) 0.3 - 1.2 mg/dL EGFR Non-Race Dependent 76 >=60 ml/min/1.73sq.m Magnesium Collection Time: 08/24/25 5:25 AM Result Value Ref Range MAGNESIUM 1.9 1.8 - 2.6 mg/dL CBC auto differential Collection Time: 08/24/25 5:25 AM Result Value Ref Range WBC 11.9 (H) 4 - 11 x10E9/L RBC Count 4.23 3.8 - 5.2 X10E12/L Hemoglobin 12.4 11.7 - 15.5 g/dL Hematocrit 36.1 35 - 47 % MCV 85 80 - 100 fL MCH 29.2 27 - 34 pg MCHC 34.2 32 - 36 g/dL RDW 16.5 (H) 11.5 - 15 % Platelet Count 192 150 - 450 X10E9/L MPV 10.0 7 - 12 fL Neutrophils % 65.6 % Lymphocytes % 19.9 % Monocytes % 12.5 % Eosinophils % 1.6 % Basophils % 0.4 % Neutrophils Absolute (A) 7.8 (H) 1.5 - 6.6 10*3/uL Lymphocytes Absolute 2.4 1.0 - 3.5 10*3/uL Monocytes Absolute 1.5 (H) 0.0 - 0.9 10*3/uL Eosinophils Absolute 0.2 0.0 - 0.4 10*3/uL Basophils Absolute 0.0 0.0 - 0.2 10*3/uL Differential Type AUTOMATED DIFFERENTIAL Troponin I, High Sensitivity 3 Hour Collection Time: 08/24/25 5:25 AM Result Value Ref Range TROPONIN I, HIGH SENSITIVITY 81 (H) <16 ng/L Narrative Elevations of hs-Troponin may be due to causes other than myocardial ischemia. Recommend serial hs-Troponin testing be performed. For the initial evaluation and management of chest pain patients, refer to the algorithms linked below. Emergency Patient: [email or web address] Inpatient: [email or web address] Potassium Collection Time: 08/24/25 3:50 PM Result Value Ref Range POTASSIUM 3.4 (L) 3.5 - 5.0 mmol/L Magnesium Collection Time: 08/24/25 3:50 PM Result Value Ref Range MAGNESIUM 2.2 1.8 - 2.6 mg/dL Extra Urine Collection Time: 08/24/25 8:40 PM Specimen: Urine, Clean Catch Midstream Result Value Ref Range Extra Tube Auto Resulted Extra Urine Culture Collection Time: 08/24/25 8:40 PM Specimen: Urine, Clean Catch Midstream Result Value Ref Range Extra Tube Auto Resulted Extra Urine Warriors Mark Collection Time: 08/24/25 8:40 PM Specimen: Urine, Clean Catch Midstream Result Value Ref Range Extra Tube Auto Resulted Comprehensive metabolic panel Collection Time: 08/25/25 5:28 AM Result Value Ref Range SODIUM 135 134 - 146 mmol/L POTASSIUM 4.3 3.5 - 5.0 mmol/L CHLORIDE 102 98 - 109 mmol/L CARBON DIOXIDE 24 22 - 32 mmol/L ANION GAP 9 5 - 15 mmol/L BLOOD UREA NITROGEN 11 5 - 27 mg/dL CREATININE 0.66 0.40 - 1.00 mg/dL GLUCOSE 125 (H) 65 - 99 mg/dL CALCIUM 8.3 (L) 8.5 - 10.5 mg/dL TOTAL PROTEIN 7.0 6.0 - 8.0 g/dL ALBUMIN 2.4 (L) 3.2 - 5.3 g/dL ALKALINE PHOSPHATASE 58 39 - 130 U/L AST 28 <=41 U/L ALT 19 <=31 U/L BILIRUBIN,TOTAL 1.9 (H) 0.3 - 1.2 mg/dL EGFR Non-Race Dependent >90 >=60 ml/min/1.73sq.m Magnesium Collection Time: 08/25/25 5:28 AM Result Value Ref Range MAGNESIUM 2.1 1.8 - 2.6 mg/dL CBC auto differential Collection Time: 08/25/25 5:28 AM Result Value Ref Range WBC 8.7 4 - 11 x10E9/L RBC Count 4.41 3.8 - 5.2 X10E12/L Hemoglobin 12.9 11.7 - 15.5 g/dL Hematocrit 37.8 35 - 47 % MCV 86 80 - 100 fL MCH 29.3 27 - 34 pg MCHC 34.2 32 - 36 g/dL RDW 16.7 (H) 11.5 - 15 % Platelet Count 207 150 - 450 X10E9/L MPV 10.0 7 - 12 fL Neutrophils % 81.4 % Lymphocytes % 12.0 % Monocytes % 6.1 % Eosinophils % 0.3 % Basophils % 0.2 % Neutrophils Absolute (A) 7.1 (H) 1.5 - 6.6 10*3/uL Lymphocytes Absolute 1.0 1.0 - 3.5 10*3/uL Monocytes Absolute 0.5 0.0 - 0.9 10*3/uL Eosinophils Absolute 0.0 0.0 - 0.4 10*3/uL Basophils Absolute 0.0 0.0 - 0.2 10*3/uL Differential Type AUTOMATED DIFFERENTIAL Radiology CT abdomen and pelvis with contrast Result Date: 08/23/2025 Narrative: EXAM: ABDOMEN AND PELVIS CT WITH CONTRAST CLINICAL INFORMATION: elevated bilirubin. TECHNIQUE: CT abdomen and pelvis was performed utilizing 5 mm axial reconstructions following the uneventful administration of nonionic intravenous contrast. Coronal and sagittal reformatted images as well as delayed excretory phase images were obtained and reviewed. Automated exposure control was utilized. COMPARISON: None. FINDINGS: The limited visualized lung bases demonstrate a trace left effusionand bibasilar atelectasis. There is a calcified benign granuloma in the right lower lobe. There aremorphologic changes of the liver compatible with cirrhosis. There is recanalization of the periumbilical vein and splenomegaly, compatible with underlying portal hypertension. There is no ascites. Punctate calcifications in the liver and spleen are compatible with old granulomatous disease. The gallbladder is absent. The pancreas is unremarkable. There is focal chronic cortical scarring in the lower pole of the right kidney. The left kidney is normal. There is no collecting system dilatation ineither kidney. The adrenals are unremarkable. There are no dilated loops of bowel or evidence for pneumatosis or free air. A normal appendix is identified. There is diverticulosis without evidence for acute diverticulitis. There is no significant free fluid. There is focal borderline aneurysmal dila tation of the infrarenal abdominal aorta measuring up to 2.9 cm. Changes of left hip arthroplasty are noted. IMPRESSION: 1. No acute abnormalities in the abdomen and pelvis. 2. Cirrhosis with recanalization of the periumbilical vein and splenomegaly, compatible with portal hypertension. There is noascites. 3. Trace left pleural effusion and mild bibasilar atelectasis. 4. Borderline infrarenal abdominal aortic aneurysm measuring up to 2.9 cm. 5. Multiple chronic and incidental CT findings, as above. All CT scans at this facility use dose modulation, iterative reconstruction, and/or weight based dosing when appropriate to reduce radiation dose to as low as reasonably achievable. Finalized by Peng Foote MD on 08/23/2025 5:[address] brain without contrast Result Date: 08/23/2025 Narrative: EXAM: CT BRAIN WO CONT CLINICAL INFORMATION: altered mental status. TECHNIQUE: CT head was performed without contrast utilizing 2.5 mm axial reconstruction with images reviewed in bone andbrain windows. Automated exposure control was utilized. COMPARISON: None. FINDINGS: There is no evidence for an acute intra or extra-axial hemorrhage. There are scattered areas of low attenuation within the white matter, nonspecific though most commonly attributable to the sequela of chronic ischemic small vessel disease. The ervin- white matter differentiation is preserved. There is no intracranial mass effect. The ventricles are proportional to the overall brain volume without evidence for outflow obstruction. There is no shift of the midline structures and the basal cisterns are widely patent. There are no depressed or widely calvarial fractures. The paranasal sinuses are well aerated. The mastoids are clear. IMPRESSION: 1. No acute intracranial abnormalities. 2. White matter ch anges, most commonly attributable to the sequela of chronic ischemic small vessel disease. 3. Please note, hyperacute ischemia can remain occult on CT. If there is persistent concern for acute ischemia, further evaluation with a dedicated MRI is recommended as clinically indicated. All CT scans at this facility use dose modulation, iterative reconstruction, and/or weight based dosing when appropriate to reduce radiation dose to as low as reasonably achievable. Finalized by Peng Foote MD on 08/23/2025 5:36 PM X-ray chest 1 view Result Date: 08/23/2025 Narrative: History: Cough with shortness of breath. EXAM: Chest AP portable upright COMPARISON: None FINDINGS: Prominent cardiac silhouette. Aortic valve replacement. No significant vascular congestion. Vague patchy airspace opacity in the right upper lung. No pneumothorax. Small pleural effusions.IMPRESSION: Right upper lobe infiltrate. Small pleural effusions. Finalized Kushal Zuluaga MD on 08/23/2025 4:54 PM X-ray hips bilateral with or without pelvis 2 views Result Date: 08/05/2025 Narrative: XR HIPS BILAT W OR WO PELVIS 2 VWS Clinical history:Disorder of sacrum pain Comparison: None. Impression: Degenerative changes of the right hip with joint space loss and narrowing osteophyte formation. Left hip arthroplasty device is noted. There is no acute process fracture dislocation.Degenerative changes of the lumbar spine. Finalized by Rohit Lieberman MD on 08/05/2025 10:06 AM X-ray spine lumbar 2 or 3 views Result Date: 08/05/2025 Narrative: History: Pain Lumbar spine Comparison: none Findings: 5 lumbar type vertebral bodies arenoted. Lordosis is maintained. Dextroscoliosis is appreciated. Facet arthrosis is noted. Bone mineralization is poor and suggests osteopenia. This hampers detection of nondisplaced fractures. No obvious loss in vertebral body height is appreciated. Infrarenal AAA, 3.1 cm IMPRESSION: Infrarenal AAA.Atherosclerotic disease is noted. Additional chronic findings are detailed above Finalized by Sadaf Pineda MD on 08/05/2025 7:59 AM DISCHARGE INSTRUCTION Disposition: Home Condition: Stable Activity: activity as tolerated Diet: Adult diet Follow up: BENJA GARCIA MD within 7-14 days. Referrals and Follow-ups to Schedule Basic Metabolic Panel Release to patient via Sensys Networkshart?: Immediate Labs/Imaging/Pathology: Pending Labs Order Current Status POCT Nursing Urine Macroscopic UA Collected (08/24/25 6817) Blood culture Preliminary result Blood culture Preliminary result Discharge Medications: Medication List START taking these medications Instructions Last Dose Given Next Dose Due cefDINIR 300 mg capsule Commonly known as: OMNICEF Take 1 capsule (300 mg total) by mouth in the morning and 1 capsule (300 mg total) before bedtime. Do all this for 6 days. doxycycline 100 mg capsule Commonly known as: VIBRAMYCIN Take 1 capsule (100 mg total) by mouth in the morning and 1 capsule (100 mg total) before bedtime. Do all this for 6 days. guaiFENesin 600 mg tablet extended release 12hr Commonly known as: MUCINEX Take 1 tablet (600 mg total) by mouth every 12 (twelve) hours for 6 days. potassium chloride 20 MEQ CR tablet Commonly known as: KLOR-CON M 20 Take 1 tablet (20 mEq total) by mouth in the morning for 10 days. predniSONE 10 mg tablet Commonly known as: DELTASONE 40 mg for 5 days, 30 mg for 4, 20 mg for 3, 10 mg for 2, then stop CONTINUE taking these medications Instructions Last Dose Given Next Dose Due adalimumab 40 mg/0.8 mL injection Commonly known as: HUMIRA Inject 0.8 mL (40 mg total) under the skin every 14 (fourteen) days. albuterol 90 mcg/actuation inhaler Commonly known as: PROVENTIL HFA;VENTOLIN HFA Inhale 2 puffs every 4 (four) hours as needed. aspirin 81 mg Take 1 tablet (81 mg total) by mouth every morning. TAKE 81 MG BY MOUTH IN THE MORNING clopidogreL 75 mg tablet Commonly known as: PLAVIX Take 1 tablet (75 mg total) by mouth in the morning. DULoxetine 60 mg capsule Commonly known as: CYMBALTA Take 1 capsule (60 mg total) by mouth every morning. TAKE 1 CAPSULE BY MOUTH ONCE DAILY IN THE MORNING ezetimibe 10 mg tablet Commonly known as: ZETIA Take 1 tablet (10 mg total) by mouth in the morning. furosemide 40 mg tablet Commonly known as: LASIX Take 0.5 tablets (20 mg total) by mouth daily. gabapentin 300 mg capsule Commonly known as: NEURONTIN Take 1 capsule (300 mg total) by mouth 3 (three) times a day. lovastatin 40 mg tablet Commonly known as: MEVACOR Take 1 tablet (40 mg total) by mouth nightly. magnesium oxide 500 mg capsule Take 1 capsule (500 mg total) by mouth in the morning. methocarbamoL 750 mg tablet Commonly known as: ROBAXIN Take 1 tablet (750 mg total) by mouth Three times daily as needed. metoprolol tartrate 25 mg tablet Commonly known as: LOPRESSOR Take 1 tablet (25 mg total) by mouth in the morning and 1 tablet (25 mg total) before bedtime. montelukast 10 mg tablet Commonly known as: SINGULAIR Take 1 tablet (10 mg total) by mouth nightly. omeprazole 40 mg capsule Commonly known as: PriLOSEC Take 1 capsule (40 mg total) by mouth every morning. TAKE 1 CAPSULE BY MOUTH IN THE MORNING TRELEGY ELLIPTA 200-62.5-25 mcg blister with device Generic drug: gcqosauzxvv-patavwlut-wrjuzvif Inhale 1 puff in the morning. zolpidem 5 mg tablet Commonly known as: AMBIEN Take 1 tablet (5 mg total) by mouth nightly as needed. ASK your doctor about these medications Instructions Last Dose Given Next Dose Due cholecalciferol 1,000 units tablet Take 1 tablet (1,000 Units total) by mouth in the morning. Where to Get Your Medications These medications were sent to [facility] [id number] [place] [id number] cefDINIR 300 mg capsule doxycycline 100 mg capsule guaiFENesin 600 mg tablet extended release 12hr potassium chloride 20 MEQ CR tablet predniSONE 10 mg tablet >30 minutes were spent on discharging this patient. MILLICENT Ibarra 08/25/2025 6:16 PM [facility] Medicine 7AM-7PM & 7PM-7AM: EpicChat or page through On-Call Finder. MILLICENT Ibarra 08/25/25 1509 MILLICENT Simons 08/25/25 2235 Physician Attestation I, Marysol Montoya MD, personally performed a face to face diagnostic evaluation on this patient. I have reviewed the note authored by the advance practice provider including history, review of systems,physical examination,medical decision making and agree with the assessment and plan as written. I have seen and evaluated the patient, I have repeated the schaefer portions of the physical exam and concur with the NUNO findings. I have reviewed all laboratory findings and imaging reports/films. I agree with the plan as noted. Patient with COPD on 2 L of home O2, diastolic CHF was admitted with COPD exacerbation, acute diastolic CHF exacerbation and acute bacterial pneumonia. Patient was started on IV Solu-Medrol IV antibiotics DuoNeb nebulizer treatment and IV Lasix. Patient's symptoms improved during hospital stay patient is being discharged in stable condition. documented in this encounter Discharge Instructions * Appointments* Val Mejia - 08/24/2025 1:03 PM EDT YOUR SCHEDULED APPOINTMENTS Please make note of this in your schedule as to not miss or call to reschedule. Thank you! BENJA GARCIA MD PCP - General Family Medicine [phone] [facility] [address] Next Steps:Go on 09/01/2025 Instructions:10:45am Pt. should bring the following to appointment; Discharge paperwork Picture ID, Insurance card, co-pay, and all current medications in their bottles. Please provide a 24 hour notice for cancellation. Failure to do so will result in the practice declining to see pt. in the future. If you have insurance copay you must bring with you to the appointment. Please arrive about 15 minutes prior to appointment for check-in/registration. For NEW PATIENT APPOINTMENTS, please arrive 30 minutes early to complete new patient paperwork. For NEW patients, MD will not prescribe prison pain medication. * Attachments The following attachments cannot be sent through Care Everywhere. * Community-acquired pneumonia in adults (Japanese) * Pneumonia in adults ??? Discharge instructions (Japanese) documented in this encounter Medications at Time of Discharge MedicationSigDispense QuantityRefillsLast FilledStart DateEnd Date adalimumab (HUMIRA) 40 mg/0.8 mL injection Inject 0.8 mL (40 mg total) under the skin every 14 (fourteen) days. albuterol (PROVENTIL HFA;VENTOLIN HFA) 90 mcg/actuation inhaler Inhale 2 puffs every 4 (four) hours as needed.04/28/2025 aspirin 81 mg Take 1 tablet (81 mg total) by mouth every morning. TAKE 81 MG BY MOUTH IN THE MORNING cholecalciferol 1,000 units tablet Take 1 tablet (1,000 Units total) by mouth in the morning.04/28/2025 clopidogreL (PLAVIX) 75 mg tablet Take 1 tablet (75 mg total) by mouth in the morning.09/17/2024 DULoxetine (CYMBALTA) 60 mg capsule Take 1 capsule (60 mg total) by mouth every morning. TAKE 1 CAPSULE BY MOUTH ONCE DAILY IN THE MORNING ezetimibe (ZETIA) 10 mg tablet Take 1 tablet (10 mg total) by mouth in the morning./02/2026 furosemide (LASIX) 40 mg tablet Take 0.5 tablets (20 mg total) by mouth daily. gabapentin (NEURONTIN) 300 mg capsule Take 1 capsule (300 mg total) by mouth 3 (three) times a day. lovastatin (MEVACOR) 40 mg tablet Take 1 tablet (40 mg total) by mouth nightly.02/11/2025 magnesium oxide 500 mg capsule Take 1 capsule (500 mg total) by mouth in the morning. methocarbamoL (ROBAXIN) 750 mg tablet Take 1 tablet (750 mg total) by mouth Three times daily as needed.12/30/2024 metoprolol tartrate (LOPRESSOR) 25 mg tablet Take 1 tablet (25 mg total) by mouth in the morning and 1 tablet (25 mg total) before bedtime. montelukast (SINGULAIR) 10 mg tablet Take 1 tablet (10 mg total) by mouth nightly. omeprazole (PriLOSEC) 40 mg capsule Take 1 capsule (40 mg total) by mouth every morning. TAKE 1 CAPSULE BY MOUTH IN THE MORNING predniSONE (DELTASONE) 10 mg tablet 40 mg for 5 days, 30 mg for 4, 20 mg for 3, 10 mg for 2, then stop 40 tablet 08/25/2025 TRELEGY ELLIPTA 200-62.5-25 mcg blister with device Inhale 1 puff in the morning. zolpidem (AMBIEN) 5 mg tablet Take 1 tablet (5 mg total) by mouth nightly as needed. cefDINIR (OMNICEF) 300 mg capsule Take 1 capsule (300 mg total) by mouth in the morning and 1 capsule (300 mg total) before bedtime. Do all this for 6 days. 12 capsule / doxycycline (VIBRAMYCIN) 100 mg capsule Take 1 capsule (100 mg total) by mouth in the morning and 1 capsule (100 mg total) before bedtime. Do all this for 6 days. 12 capsule guaiFENesin (MUCINEX) 600 mg tablet extended release 12hr Take 1 tablet (600 mg total) by mouth every 12 (twelve) hours for 6 days. 12 tablet potassium chloride (KLOR-CON M 20) 20 MEQ CR tablet Take 1 tablet (20 mEq total) by mouth in the morning for 10 days. 10 tablet documented as of this encounter Progress Notes * Oliva Burch RCP - 08/23/2025 8:57 PM EDT 08/23/252056 Vital Signs Pulse 75 Heart Rate Source Monitor Resp 20 SpO2 93 % O2 Device Nasal cannula O2 Flow Rate (L/min) 2 L/min Patient Position Semi-fowlers Respiratory Assessment Assessment Type Pre-treatment Level of Consciousness Alert Respiratory Pattern Regular Chest Assessment Chest expansion symmetrical Bilateral Breath Sounds Clear;Diminished Location Specific No Inhalation Therapy Delivery Source Oxygen Device Nebulizer Duration (Minutes) 10 Position Semi Foreman's * Aram Gupta RPH - 08/23/2025 7:55 PM EDT [facility] Department of Pharmacy Pharmacist to Physician Communication The dose of famotidine has been changed to 20 mg every 24 hours per the [facility] approved renal dosing guidelines, based on an estimated creatinine clearance is 39.2 mL/min (by C-G formula based on SCr of0.98 mg/dL). Thank you, Aram Gupta RPH documented in this encounter H&P Notes * Marysol Montoya MD - 08/24/2025 4:31 PM EDT Images from the original note were not included. [facility] [address] [id number] Hospital Medicine History & Physical Patient: Alisa Carroll Date of : 1955 Room: [facility] PCP: BENJA GARCIA MD Admission date: 08/23/2025 4:03 PM Encounter date: 08/24/25 Hospital Day: 2 SUBJECTIVE Alisa Carroll is a 70 y.o. female who presents with presents to the ED via EMS for evaluation of AMS. Son states that pt has been non-coherent like she is in a daze for the past few days. Son reports that the pt has been in pain and did fall a couple of times. Pt notes that she has been having diarrhea, feels SoB, and has had a non-productive cough. Pt denies urinary changes or burning with urination, and denies pain. Son states that this has happened before. Son reports that the pt just had an aortic valve replacement about 5 months ago. Son notes that the pt was on oxygen at night and as-needed during the day, but since they just moved here they do not have her oxygen. No other concernsat this time. PMH significant for: GERD, CHF, emphysema, RA, aortic valve replacement Initial ED workup: troponins 128, 113, BNP 914, procalcitonin 0.27, blood cultures neg x24hrs, lactate 2.0, K 2.6, bilirubin 5.0 CXR: Right upper lobe infiltrate. Small pleural effusions. CT brain w/o contrast: 1. No acute intracranial abnormalities. 2. White matter changes, most commonly attributable to the sequela of chronic ischemic small vesseldisease. 3. Please note, hyperacute ischemia can remain occult on CT. If there is persistent concern for acute ischemia, further evaluation with a dedicated MRI is recommended as clinically indicated. CT abdomen and pelvis with contrast: 1. No acute abnormalities in the abdomen and pelvis. 2. Cirrhosis with recanalization of the periumbilical vein and splenomegaly, compatible with portalhypertension. There is no ascites. 3. Trace left pleural effusion and mild bibasilar atelectasis. 4. Borderline infrarenal abdominal aortic aneurysm measuring up to 2.9 cm. 5. Multiple chronic and incidental CT findings, as above. Allergies: Patient has no known allergies. Prior to Admission medications Medication Sig Start Date End Date Taking? Authorizing Provider adalimumab (HUMIRA) 40 mg/0.8 mL injection Inject 0.8 mL (40 mg total) under the skin every 14 (fourteen) days. Yes Not In System Ref Prov albuterol (PROVENTIL HFA;VENTOLIN HFA) 90 mcg/actuation inhaler Inhale 2 puffs every 4 (four) hoursas needed. 04/28/25 Yes Not In System Ref Prov aspirin 81 mg Take 1 tablet (81 mg total) by mouth every morning. TAKE 81 MG BY MOUTH IN THE MORNING Yes Not In System Ref Prov clopidogreL (PLAVIX) 75 mg tablet Take 1 tablet (75 mg total) by mouth in the morning. 09/17/24 YesNot In System Ref Prov DULoxetine (CYMBALTA) 60 mg capsule Take 1 capsule (60 mg total) by mouth every morning. TAKE 1 CAPSULE BY MOUTH ONCE DAILY IN THE MORNING Yes Not In System Ref Prov ezetimibe (ZETIA) 10 mg tablet Take 1 tablet (10 mg total) by mouth in the morning. 06/06/25 06/06/26 Yes Not In System Ref Prov furosemide (LASIX) 40 mg tablet Take 0.5 tablets (20 mg total) by mouth daily. Yes Not In System Ref Prov gabapentin (NEURONTIN) 300 mg capsule Take 1 capsule (300 mg total) by mouth 3 (three) times a day.Yes Not In System Ref Prov lovastatin (MEVACOR) 40 mg tablet Take 1 tablet (40 mg total) by mouth nightly. 02/11/25 Yes Not In System Ref Prov magnesium oxide 500 mg capsule Take 1 capsule (500 mg total) by mouth in the morning. Yes Not In System Ref Prov methocarbamoL (ROBAXIN) 750 mg tablet Take 1 tablet (750 mg total) by mouth Three times daily as needed. 12/30/24 Yes Not In System Ref Prov metoprolol tartrate (LOPRESSOR) 25 mg tablet Take 1 tablet (25 mg total) by mouth in the morning and 1 tablet (25 mg total) before bedtime. Yes Not In System Ref Prov montelukast (SINGULAIR) 10 mg tablet Take 1 tablet (10 mg total) by mouth nightly. Yes Not In System Ref Prov omeprazole (PriLOSEC) 40 mg capsule Take 1 capsule (40 mg total) by mouth every morning. TAKE 1 CAPSULE BY MOUTH IN THE MORNING Yes Not In System Ref Prov TRELEGY ELLIPTA 200-62.5-25 mcg blister with device Inhale 1 puff in the morning. Yes Not In SystemRef Prov zolpidem (AMBIEN) 5 mg tablet Take 1 tablet (5 mg total) by mouth nightly as needed. Yes Not In System Ref Prov cholecalciferol 1,000 units tablet Take 1 tablet (1,000 Units total) by mouth in the morning. Patient not taking: Reported on 08/23/2025 04/28/25 Not In System Ref Prov Code Status: Full Code Past Medical History: Patient has a past medical history of Acid reflux, Back pain, Carpal tunnel syndrome, Chest pain, CHF (congestive heart failure) ([facility]), Emphysema ([facility] HCC), Lung disease, Neck pain, Palpitations,and Rheumatoid arthritis ([facility]). Past Surgical History: Patient has a past surgical history that includes Other surgical history; Rotator cuff repair (Left); Other surgical history; Coronary angioplasty with stent; and Cardiac valve replacement. Family History: Patient's family history includes Cancer in her father, mother, and sister; Heart disease in her brother and sister. Social History: Patient reports that she has never smoked. She has never used smokeless tobacco. She reports that she does not currently use alcohol. She reports that she does not use drugs. Review of Systems Constitutional: Positive for fatigue. Negative for activity change, appetite change, chills, fever and unexpected weight change. HENT: Negative for congestion, dental problem, hearing loss, rhinorrhea, sore throat, trouble swallowing and voice change. Eyes: Negative for visual disturbance. Respiratory: Positive for shortness of breath. Negative for cough and wheezing. Cardiovascular: Negative for chest pain, palpitations and leg swelling. Gastrointestinal: Negative for abdominal pain, blood in stool, constipation, diarrhea, nausea and vomiting. Genitourinary: Negative for difficulty urinating, dysuria, enuresis, frequency and hematuria. Musculoskeletal: Negative for arthralgias, joint swelling and myalgias. Skin: Negative for color change, rash and wound. Neurological: Positive for weakness. Negative for dizziness, seizures, syncope, speech difficulty, numbness and headaches. Hematological: Negative for adenopathy. Does not bruise/bleed easily. Psychiatric/Behavioral: Negative for dysphoric mood and sleep disturbance. The patient is not nervous/anxious. OBJECTIVE BP 128/54 Pulse 65 Temp 36.9 ??C (98.4 ??F) (Oral) Resp 16 Ht 154.9 cm (5' 0.98 ) Wt 77 kg (169 lb 11.2 oz) SpO2 92% BMI 32.08 kg/m?? Temp: [36.8 ??C (98.3 ??F)-37.1 ??C (98.7 ??F)] 36.9 ??C (98.4 ??F) Pulse: [64-89] 65 Resp: [12-20] 16 BP: (109-146)/(52-62) 128/54 SpO2: [91 %-97 %] 92 % O2 Device: Nasal cannula O2 Flow Rate (L/min): [1 L/min-2 L/min] 1 L/min Intake/Output Summary (Last 24 hours) at 08/24/2025 2115 Last data filed at 08/24/2025 1755 Gross per 24 hour Intake 1417 ml Output 900 ml Net 517 ml Physical Exam Vitals and nursing note reviewed. Constitutional: General: She is not in acute distress. Appearance: Normal appearance. She is well-developed. HENT: Head: Normocephalic and atraumatic. Right Ear: External ear normal. Left Ear: External ear normal. Nose: Nose normal. Mouth/Throat: Lips: [place]. Mouth: Mucous membranes are moist. Pharynx: Oropharynx is clear. No oropharyngeal exudate. Eyes: General: No scleral icterus. Conjunctiva/sclera: Conjunctivae normal. Pupils: Pupils are equal, round, and reactive to light. Neck: Vascular: No JVD. Cardiovascular: Rate and Rhythm: Normal rate and regular rhythm. Pulses: Radial pulses are 2+ on the right side and 2+ on the left side. Heart sounds: Normal heart sounds, S1 normal and S2 normal. No murmur heard. No friction rub. No gallop. Pulmonary: Effort: Pulmonary effort is normal. Breath sounds: Examination of the right-middle field reveals decreased breath sounds and rhonchi. Examination of the right-lower field reveals rhonchi. Examination of the left-lower field reveals rhonchi. Decreased breath sounds and rhonchi present. No wheezing or rales. Abdominal: General: Bowel sounds are normal. Palpations: Abdomen is soft. Tenderness: There is no abdominal tenderness. Musculoskeletal: General: Normal range of motion. Cervical back: Normal range of motion and neck supple. Right lower leg: No edema. Left lower leg: No edema. Skin: General: Skin is warm and dry. Capillary Refill: Capillary refill takes less than 2 seconds. Findings: No erythema, rash or wound. Neurological: General: No focal deficit present. Mental Status: She is alert and oriented to person, place, and time. Sensory: No sensory deficit. Deep Tendon Reflexes: Reflexes are normal and symmetric. Psychiatric: Attention and Perception: Attention normal. Mood and Affect: Mood and affect normal. Behavior: Behavior normal. Behavior is cooperative. Judgment: Judgment normal. Medications Scheduled: atorvastatin, 10 mg, oral, Nightly cefTRIAXone (ROCEPHIN) IV, 1,000 mg, intravenous, Q24H [START ON 08/25/2025] clopidogreL, 75 mg, oral, Daily doxycycline, 100 mg, oral, BID DULoxetine, 60 mg, oral, Daily ezetimibe, 10 mg, oral, Daily famotidine, 20 mg, oral, Nightly fluticasone furoate-vilanteroL, 1 puff, inhalation, Daily AND umeclidinium, 1 puff, inhalation,Daily furosemide, 40 mg, intravenous, Q24H LAUREN gabapentin, 300 mg, oral, TID guaiFENesin, 600 mg, oral, Q12H LAUREN heparin (porcine), 5,000 Units, subcutaneous, Q8H LAUREN ipratropium-albuteroL, 3 mL, nebulization, Q6H methylPREDNISolone sodium succinate, 40 mg, intravenous, Q12H LAUREN metoprolol tartrate, 25 mg, oral, BID montelukast, 10 mg, oral, Nightly potassium chloride, 40 mEq, oral, TID Infusions: dextrose 5 % in water, 100 mL/hr As Needed: dextrose dextrose 5 % in water dextrose 50 % in water (D50W) glucagon (human recombinant) magnesium sulfate magnesium sulfate methocarbamoL potassium chloride OR potassium chloride OR potassium chloride IV (Adult) prochlorperazine OR prochlorperazine OR prochlorperazine sodium chloride sodium chloride zolpidem Allergies: Patient has no known allergies. Labs Recent Results (from the past 24 hours) Extra Tubes Collection Time: 08/24/25 5:24 AM Narrative The following orders were created for panel order Extra Tubes. Procedure Abnormality Status --------- ------ Light Blue Top[[id number]] Final result Please view results for these tests on the individual orders. Light Blue Top Collection Time: 08/24/25 5:24 AM Result Value Ref Range Extra Tube Auto Resulted Comprehensive metabolic panel Collection Time: 08/24/25 5:25 AM Result Value Ref Range SODIUM 137 134 - 146 mmol/L POTASSIUM 2.6 (LL) 3.5 - 5.0 mmol/L CHLORIDE 100 98 - 109 mmol/L CARBON DIOXIDE 27 22 - 32 mmol/L ANION GAP 10 5 - 15 mmol/L BLOOD UREA NITROGEN 12 5 - 27 mg/dL CREATININE 0.82 0.40 - 1.00 mg/dL GLUCOSE 96 65 - 99 mg/dL CALCIUM 7.9 (L) 8.5 - 10.5 mg/dL TOTAL PROTEIN 6.0 6.0 - 8.0 g/dL ALBUMIN 2.2 (L) 3.2 - 5.3 g/dL ALKALINE PHOSPHATASE 54 39 - 130 U/L AST 28 <=41 U/L ALT 18 <=31 U/L BILIRUBIN,TOTAL 3.7 (H) 0.3 - 1.2 mg/dL EGFR Non-Race Dependent 76 >=60 ml/min/1.73sq.m Magnesium Collection Time: 08/24/25 5:25 AM Result Value Ref Range MAGNESIUM 1.9 1.8 - 2.6 mg/dL CBC auto differential Collection Time: 08/24/25 5:25 AM Result Value Ref Range WBC 11.9 (H) 4 - 11 x10E9/L RBC Count 4.23 3.8 - 5.2 X10E12/L Hemoglobin 12.4 11.7 - 15.5 g/dL Hematocrit 36.1 35 - 47 % MCV 85 80 - 100 fL MCH 29.2 27 - 34 pg MCHC 34.2 32 - 36 g/dL RDW 16.5 (H) 11.5 - 15 % Platelet Count 192 150 - 450 X10E9/L MPV 10.0 7 - 12 fL Neutrophils % 65.6 % Lymphocytes % 19.9 % Monocytes % 12.5 % Eosinophils % 1.6 % Basophils % 0.4 % Neutrophils Absolute (A) 7.8 (H) 1.5 - 6.6 10*3/uL Lymphocytes Absolute 2.4 1.0 - 3.5 10*3/uL Monocytes Absolute 1.5 (H) 0.0 - 0.9 10*3/uL Eosinophils Absolute 0.2 0.0 - 0.4 10*3/uL Basophils Absolute 0.0 0.0 - 0.2 10*3/uL Differential Type AUTOMATED DIFFERENTIAL Troponin I, High Sensitivity 3 Hour Collection Time: 08/24/25 5:25 AM Result Value Ref Range TROPONIN I, HIGH SENSITIVITY 81 (H) <16 ng/L Narrative Elevations of hs-Troponin may be due to causes other than myocardial ischemia. Recommend serial hs-Troponin testing be performed. For the initial evaluation and management of chest pain patients, refer to the algorithms linked below. Emergency Patient: [email or web address]: [email or web address] Potassium Collection Time: 08/24/25 3:50 PM Result Value Ref Range POTASSIUM 3.4 (L) 3.5 - 5.0 mmol/L Magnesium Collection Time: 08/24/25 3:50 PM Result Value Ref Range MAGNESIUM 2.2 1.8 - 2.6 mg/dL Radiology CT abdomen and pelvis with contrast Result Date: 08/23/2025 Narrative: EXAM: ABDOMEN AND PELVIS CT WITH CONTRAST CLINICAL INFORMATION: elevated bilirubin. TECHNIQUE: CT abdomen and pelvis was performed utilizing 5 mm axial reconstructions following the uneventful administration of nonionic intravenous contrast. Coronal and sagittal reformatted images as well as delayed excretory phase images were obtained and reviewed. Automated exposure control was utilized. COMPARISON: None. FINDINGS: The limited visualized lung bases demonstrate a trace left effusionand bibasilar atelectasis. There is a calcified benign granuloma in the right lower lobe. There aremorphologic changes of the liver compatible with cirrhosis. There is recanalization of the periumbilical vein and splenomegaly, compatible with underlying portal hypertension. There is no ascites. Punctate calcifications in the liver and spleen are compatible with old granulomatous disease. The gallbladder is absent. The pancreas is unremarkable. There is focal chronic cortical scarring in the lower pole of the right kidney. The left kidney is normal. There is no collecting system dilatation ineither kidney. The adrenals are unremarkable. There are no dilated loops of bowel or evidence for pneumatosis or free air. A normal appendix is identified. There is diverticulosis without evidence for acute diverticulitis. There is no significant free fluid. There is focal borderline aneurysmal dila tation of the infrarenal abdominal aorta measuring up to 2.9 cm. Changes of left hip arthroplasty are noted. IMPRESSION: 1. No acute abnormalities in the abdomen and pelvis. 2. Cirrhosis with recanalization of the periumbilical vein and splenomegaly, compatible with portal hypertension. There is noascites. 3. Trace left pleural effusion and mild bibasilar atelectasis. 4. Borderline infrarenal abdominal aortic aneurysm measuring up to 2.9 cm. 5. Multiple chronic and incidental CT findings, as above. All CT scans at this facility use dose modulation, iterative reconstruction, and/or weight based dosing when appropriate to reduce radiation dose to as low as reasonably achievable. Finalized by Peng Foote MD on 08/23/2025 5:[address] brain without contrast Result Date: 08/23/2025 Narrative: EXAM: CT BRAIN WO CONT CLINICAL INFORMATION: altered mental status. TECHNIQUE: CT head was performed without contrast utilizing 2.5 mm axial reconstruction with images reviewed in bone andbrain windows. Automated exposure control was utilized. COMPARISON: None. FINDINGS: There is no evidence for an acute intra or extra-axial hemorrhage. There are scattered areas of low attenuation within the white matter, nonspecific though most commonly attributable to the sequela of chronic ischemic small vessel disease. The ervin- white matter differentiation is preserved. There is no intracranial mass effect. The ventricles are proportional to the overall brain volume without evidence for outflow obstruction. There is no shift of the midline structures and the basal cisterns are widely patent. There are no depressed or widely calvarial fractures. The paranasal sinuses are well aerated. The mastoids are clear. IMPRESSION: 1. No acute intracranial abnormalities. 2. White matter ch anges, most commonly attributable to the sequela of chronic ischemic small vessel disease. 3. Please note, hyperacute ischemia can remain occult on CT. If there is persistent concern for acute ischemia, further evaluation with a dedicated MRI is recommended as clinically indicated. All CT scans at this facility use dose modulation, iterative reconstruction, and/or weight based dosing when appropriate to reduce radiation dose to as low as reasonably achievable. Finalized by Peng Foote MD on 08/23/2025 5:36 PM X-ray chest 1 view Result Date: 08/23/2025 Narrative: History: Cough with shortness of breath. EXAM: Chest AP portable upright COMPARISON: None FINDINGS: Prominent cardiac silhouette. Aortic valve replacement. No significant vascular congestion. Vague patchy airspace opacity in the right upper lung. No pneumothorax. Small pleural effusions.IMPRESSION: Right upper lobe infiltrate. Small pleural effusions. Finalized Kushal Zuluaga MD on 08/23/2025 4:54 PM X-ray hips bilateral with or without pelvis 2 views Result Date: 08/05/2025 Narrative: XR HIPS BILAT W OR WO PELVIS 2 VWS Clinical history:Disorder of sacrum pain Comparison: None. Impression: Degenerative changes of the right hip with joint space loss and narrowing osteophyte formation. Left hip arthroplasty device is noted. There is no acute process fracture dislocation.Degenerative changes of the lumbar spine. Finalized by Rohit Lieberman MD on 08/05/2025 10:06 AM X-ray spine lumbar 2 or 3 views Result Date: 08/05/2025 Narrative: History: Pain Lumbar spine Comparison: none Findings: 5 lumbar type vertebral bodies arenoted. Lordosis is maintained. Dextroscoliosis is appreciated. Facet arthrosis is noted. Bone mineralization is poor and suggests osteopenia. This hampers detection of nondisplaced fractures. No obvious loss in vertebral body height is appreciated. Infrarenal AAA, 3.1 cm IMPRESSION: Infrarenal AAA.Atherosclerotic disease is noted. Additional chronic findings are detailed above Finalized by Sadaf Pineda MD on 08/05/2025 7:59 AM HOSPITAL PROBLEM LIST Principal Problem: Pneumonia Active Problems: Chronic bilateral low back pain without sciatica Gastroesophageal reflux disease Hyperlipidemia DDD (degenerative disc disease), lumbar Primary insomnia Cirrhosis of liver without ascites (CMS-HCC) ILD (interstitial lung disease) (CMS-HCC) COPD exacerbation (CMS-HCC) Infrarenal abdominal aortic aneurysm (AAA) without rupture Acute on chronic diastolic congestive heart failure (CMS-HCC) Hypokalemia Hypertension H/O aortic valve replacement History of coronary artery stent placement ASSESSMENT & PLAN Pneumonia COPD exacerbation Interstitial lung disease Zithromax x1 in ED, discontinued IV rocephin daily Doxycycline BID Mucinex BID Duonebs Q6H scheduled Breo ellipta, Incruse ellipta Solumedrol 40mg IV BID Continue home Singulair On 2L NC, RA at baseline Acute on chronic diastolic congestive heart failure CXR- RUL infiltrate, small pl effusions BNP 914 IV lasix 40mg daily History of aortic valve replacement History of coronary artery stent Continue home Plavix Continue home Lipitor Hypokalemia K 2.6 today KCL 40mEq TID added Replace per protocol Hypertension Hyperlipidemia Continue home Metoprolol, Zetia, Lipitor Insomnia Continue home Ambien Degenerative disc disease Chronic bilateral lower back pain w/o sciatica Continue Cymbalta, Robaxin, gabapentin GERD Continue Famotidine Sepsis suspected, no-not clinically evident at this time. Chart reviewed. Admission orders placed. Home medications reconciled. VTE chemoprophylaxis: on DOAC. GI prophylaxis: add famotidine. PT/OT to evaluate and treat. DC planning: Pending clinical course, when medically stable Gi Pino, PANDA-SUKUMAR 08/24/2025 9:15 PM [facility] 7AM-7PM & 7PM-7AM: EpicChat or page through [employer]. MILLICENT Ibarra 08/24/25 1707 MILLICENT Ibarra 08/24/25 1708 MILLICENT Simons 08/24/252006 Physician Attestation I, Marysol Montoya MD, personally performed a face to face diagnostic evaluation on this patient. I have reviewed the note authored by the advance practice provider including history, review of systems,physical examination,medical decision making and agree with the assessment and plan as written. I have seen and evaluated the patient, I have repeated the schaefer portions of the physical exam and concur with the NUNO findings. I have reviewed all laboratory findings and imaging reports/films. I agree with the plan as noted. Patient with COPD, diastolic CHF is being admitted with acute bacterial pneumonia COPD exacerbationand diastolic CHF exacerbation on IV Solu-Medrol IV antibiotics IV Lasix. documented in this encounter Nursing Notes * Umang Rodney RN - 08/25/2025 1:48 PM EDT Patient is stable and ready for discharge. has arranged O2 for home with current agency used. On room air she is satting 88-93%. They have a home pulse on to monitor and have been trained. Patient is not SOB. She is going home with . documented in this encounter ED Notes * Wes Ruiz DO - 08/23/2025 4:35 PM EDT Images from the original note were not included. [facility] - EMERGENCY Pt Name: Alisa Carroll Birthdate: 1955 Chief Complaint: Chief Complaint Patient presents with Altered Mental Status History of Present Illness: Initial evaluation performed at 4:[address] Fay Ruiz. Patient is a 70 y.o. female who presents to the ED via EMS for evaluation of AMS. Son states that pt has been non-coherent like she is in a daze for the past few days. Son reports that the pt has been in pain, walks really slow, and did fall a couple of times. Pt notes that she has been having diarrhea, feels SoB, and has had a non-productive cough. Pt denies urinary changes or burning with urination, and denies pain. Son states that this has happened before. Son reports that the pt just had an aortic valve put in about 5 months ago. Son notes that the pt was on oxygen at night and as-needed during the day, but since they just moved here they do not have her oxygen. No other concerns at this time. History provided by: Relative and patient remote operations producer used: No Past Medical History: Past Medical History: Diagnosis Date Acid reflux Back pain Carpal tunnel syndrome Chest pain CHF (congestive heart failure) ([facility]) Emphysema ([facility]) Lung disease Neck pain Palpitations Rheumatoid arthritis ([facility]) Past Surgical History: Past Surgical History: Procedure Laterality Date CARDIAC VALVE REPLACEMENT CORONARY ANGIOPLASTY WITH STENT PLACEMENT OTHER SURGICAL HISTORY left elboew surgery OTHER SURGICAL HISTORY nerve repair to right arm ROTATOR CUFF REPAIR Left Family History: Family History Problem Relation Age of Onset Cancer Mother Cancer Father Heart disease Sister Cancer Sister Heart disease Brother Social History: Social History Socioeconomic History Marital status: Tobacco Use Smoking status: Never Smokeless tobacco: Never Vaping Use Vaping status: Never Used Substance and Sexual Activity Alcohol use: Not Currently Drug use: Never Sexual activity: Defer Social Drivers of Health Financial Resource Strain: Medium Risk (07/28/2024) Received from [employer] Overall Financial Resource Strain (CARDIA) Difficulty of Paying Living Expenses: Somewhat hard Food Insecurity: No Food Insecurity (08/23/2025) Hunger Screening Food Insecurity - Worry: Never True Food Insecurity - Inability: Never True Transportation Needs: No Transportation Needs (01/03/2025) Received from [employer] [employer] PRAPARE - Transportation Lack of Transportation (Medical): No Lack of Transportation (Non-Medical): No Physical Activity: Inactive (04/28/2025) Received from [employer] Exercise Vital Sign On average, how many days per week do you engage in moderate to strenuous exercise (like a brisk walk)?: 0 days On average, how many minutes do you engage in exercise at this level?: 0 min Stress: Stress Concern Present (07/28/2024) Received from [employer] [place] [facility] [employer] - Occupational Stress Questionnaire Feeling of Stress : Very much Social Connections: Moderately Integrated (04/28/2025) Received from [employer] Social Connection and Isolation Panel In a typical week, how many times do you talk on the phone with family, friends, or neighbors?: Three times a week How often do you get together with friends or relatives?: Once a week How often do you attend congregational or yazidism services?: More than 4 times per year Do you belong to any clubs or organizations such as congregational groups, unions, fraternal or athletic groups, or school groups?: No How often do you attend meetings of the clubs or organizations you belong to?: Never Are you , , , , never , or living with a partner?: Interpersonal Safety: Not At Risk (01/03/2025) Received from [employer] Humiliation, Afraid, Rape, and Kick questionnaire Within the last year, have you been afraid of your partner or ex-partner?: No Within the last year, have you been humiliated or emotionally abused in other ways by your partner or ex-partner?: No Within the last year, have you been kicked, hit, slapped, or otherwise physically hurt by your partner or ex-partner?: No Within the last year, have you been raped or forced to have any kind of sexual activity by your partner or ex-partner?: No Housing Instability: Low Risk (01/05/2025) Received from [employer] Housing Stability Vital Sign In the last 12 months, was there a time when you were not able to pay the mortgage or rent on time?: No In the past 12 months, how many times have you moved where you were living?: 0 At any time in the past 12 months, were you homeless or living in a fdc (including now)?: No Recent Concern: Housing Instability - At Risk (11/11/2024) [facility] Housing/Utilities Are you worried about losing your housing? : Yes Within the past 12 months, have you ever stayed: outside, in a car, in a tent, in an overnight fdc, or temporarily in someone else's home (i.e. couch- surfing)?: No Within the past 12 months, have you been unable to get utilities (heat, electricity) when it was really needed?: No Review of Systems: Review of Systems Physical Exam: ED Triage Vitals [08/23/25 1605] Temp Heart Rate Resp BP SpO2 36.1 ??C (97 ??F) 80 18 114/54 95 % Temp Source Heart Rate Source Patient Position BP Location FiO2 (%) Temporal Monitor High-fowlers -- -- Vitals: 08/23/25 1605 BP: 114/54 Temp: 36.1 ??C (97 ??F) TempSrc: Temporal Pulse: 80 Resp: 18 SpO2: 95% Weight: 79.8 kg (176 lb) Physical Exam Vitals reviewed. HENT: Head: Normocephalic and atraumatic. Eyes: Conjunctiva/sclera: Conjunctivae normal. Cardiovascular: Rate and Rhythm: Normal rate. Pulmonary: Effort: Pulmonary effort is normal. Breath sounds: Normal breath sounds. Abdominal: General: There is no distension. Palpations: Abdomen is soft. Tenderness: There is generalized abdominal tenderness. There is no guarding or rebound. Musculoskeletal: General: Normal range of motion. Cervical back: Normal range of motion and neck supple. Skin: General: Skin is warm and dry. Neurological: General: No focal deficit present. Mental Status: She is alert. GCS: GCS eye subscore is 4. GCS verbal subscore is 5. GCS motor subscore is 6. Cranial Nerves: No facial asymmetry. Sensory: Sensation is intact. Motor: Motor function is intact. Comments: Alert to name but does not know date or place No facial drooping Procedure: Procedures Re-evaluation: Viktor Chu (scribe), documented on behalf and in the presence of Dr. Fay Ruiz. 05:44 PM: Dr. Ruiz spoke with the pt and family about the pts current results and plan for admission. Pt and family were understanding and agreeable to this plan. Medical Decision Making Amount and/or Complexity of Data Reviewed External Data Reviewed: notes. Details: Chart reviewed. Labs: ordered. Details: Reviewed the pts labs, which are notable for: Low potassium of 2.6, high bilirubin of 5.0,elevated WBC of 15.8, high BNP of 914, high trop of 128 Radiology: ordered and independent interpretation performed. Details: Reviewed the pts CXR, the results are notable for: Right upper lobe infiltrate, small pleural effusions, pneumonia Reviewed the pts CT scans, the results are notable for: Cirrhosis ECG/medicine tests: ordered. Discussion of management or test interpretation with external provider(s): 06:08 PM: Dr. Ruiz spoke with Kianna Aragon ([employer]) about the pt. She accepts the pt for admission. Risk Prescription drug management. ED Course: Clinical Impressions as of 08/25/25 1242 Pneumonia Hypokalemia . ED Disposition None . Please note that portions of this note were completed with a voice recognition program. Efforts were made to edit the dictations but occasionally words are mis-transcribed. Viktor Lito 08/23/25 1653 Viktor Lito 08/23/25 1734 Viktor Lito 08/23/25 1747 Viktor Lito 08/23/25 1802 Viktor Lito 08/23/25 1810 Viktor Lito 08/23/25 1832 Wes Ruiz DO 09/04/25 0112 * Radha Lu RN - 08/23/2025 4:05 PM EDT Family reports altered mental status for the last 3 days. documented in this encounter Miscellaneous Notes * Discharge Planning Note - SHREYA Irving - 08/25/2025 1:05 PM EDT DISCHARGE PLANNING NOTE Per family, home O2 is already set up as she did previously have home O2 in community. Family unable to tell RN name of home O2 company. Attempted to call cell phone but unable to leave a message. Patient Discharge Plan: Home with self care Follow up with Dr. Garcia (PCP) on 09/01/2025 at 10:45 am. - SHREYA Irving 08/25/25 1:07 PM * Plan of Care - Umang Rodney RN - 08/25/2025 11:08 AM EDT Problem: Pain Goal: Patient goal is pain score less than 4, able to rest, and participant in treatment plan as appropriate Description: INTERVENTIONS: 1. Encourage patient or legal customer support representative to report early pain and ask for pain medicine when needed 2. Assess pain using appropriate pain scale and include the scale used when documenting 3. Administer analgesics based on type and severity of pain and evaluate response within appropriate time frame 4. Implement non-pharmacological measures as appropriate and evaluate response 5. Consider cultural and social influences on pain and pain management 6. Notify LIP if interventions ineffective or patient reports new pain 7. Monitor vital signs including pulse ox, end-tidal CO2 based on pain intervention 8. Reassess pain per policy 9. Teach patient or legal customer support representative interventions for comforting Outcome: Progressing Note: Evaluation of progress towards goal: Patient denies pain Problem: Safety Goal: Patient will be injury free during hospitalization Description: INTERVENTIONS: 1. Assess patient's risk for falls and implement fall prevention plan of care per policy 2. Provide and maintain a safe environment 3. Proper use of double Identifiers 4. Medication administration using the 5 rights 5. Hand hygiene 6. Specimens are labeled at the bedside 7. Instruct patient/ patient customer support representative about use of safety devices 8. Include patient/ patient customer support representative in decisions related to safety Outcome: Progressing Note: Evaluation of progress towards goal: Patient uses call light for safetey Problem: Infection Goal: Absence of infection during hospitalization Description: INTERVENTIONS 1. Assess and monitor for signs and symptoms of infection. 2. Monitor lab/diagnostic results. 3. Monitor all insertion sites i.e., indwelling lines, tubes and drains. 4. Monitor endotracheal (as able) and nasal secretions for changes in amount and color. 5. Administer medications as ordered. 6. Instruct and encourage patient and family to use good hand hygiene technique. 7. Identify and instruct patient/patient customer support representative in use of appropriate isolation precautionsfor identified infection/symptoms. 8. Provide and discuss with patient/patient customer support representative on educational MDRO sheet. 9. Encourage and monitor nutritional status daily and consult mathematics lecturer if indicated. 10. Implement neutropenic guidelines as needed. Outcome: Progressing Note: Evaluation of progress towards goal: WBC are now down to amira Problem: Infection Goal: Absence of infection during hospitalization Description: INTERVENTIONS 1. Assess and monitor for signs and symptoms of infection. 2. Monitor lab/diagnostic results. 3. Monitor all insertion sites i.e., indwelling lines, tubes and drains. 4. Monitor endotracheal (as able) and nasal secretions for changes in amount and color. 5. Administer medications as ordered. 6. Instruct and encourage patient and family to use good hand hygiene technique. 7. Identify and instruct patient/patient customer support representative in use of appropriate isolation precautionsfor identified infection/symptoms. 8. Provide and discuss with patient/patient customer support representative on educational MDRO sheet. 9. Encourage and monitor nutritional status daily and consult mathematics lecturer if indicated. 10. Implement neutropenic guidelines as needed. Outcome: Progressing Note: Evaluation of progress towards goal: WBC are now down to amira Problem: Knowledge Deficit Goal: Patient/patient customer support representative demonstrates understanding of disease process, treatment plan,medications, and discharge instructions Description: INTERVENTIONS 1. Complete learning assessment and assess knowledge base 2. Provide teaching at level of understanding 3. Provide teaching via preferred learning method(s) Outcome: Progressing Note: Evaluation of progress towards goal: Nursing staff reinforcing plan of care treatment and med * Plan of Care - Rah Leon RN - 08/25/2025 12:19 AM EDT Problem: Pain Goal: Patient goal is pain score less than 4, able to rest, and participant in treatment plan as appropriate Description: INTERVENTIONS: 1. Encourage patient or legal customer support representative to report early pain and ask for pain medicine when needed 2. Assess pain using appropriate pain scale and include the scale used when documenting 3. Administer analgesics based on type and severity of pain and evaluate response within appropriate time frame 4. Implement non-pharmacological measures as appropriate and evaluate response 5. Consider cultural and social influences on pain and pain management 6. Notify LIP if interventions ineffective or patient reports new pain 7. Monitor vital signs including pulse ox, end-tidal CO2 based on pain intervention 8. Reassess pain per policy 9. Teach patient or legal customer support representative interventions for comforting Outcome: Progressing Note: Evaluation of progress towards goal: Pt able to report pain according to 0/10 pain scale. Medicating patient for pain per orders. Problem: Safety Goal: Patient will be injury free during hospitalization Description: INTERVENTIONS: 1. Assess patient's risk for falls and implement fall prevention plan of care per policy 2. Provide and maintain a safe environment 3. Proper use of double Identifiers 4. Medication administration using the 5 rights 5. Hand hygiene 6. Specimens are labeled at the bedside 7. Instruct patient/ patient customer support representative about use of safety devices 8. Include patient/ patient customer support representative in decisions related to safety Outcome: Progressing Note: Evaluation of progress towards goal: Pt's risk for falls assessed and fall prevention implemented as needed, safe environment provided and maintained, hand hygiene completed. Problem: Infection Goal: Absence of infection during hospitalization Description: INTERVENTIONS 1. Assess and monitor for signs and symptoms of infection. 2. Monitor lab/diagnostic results. 3. Monitor all insertion sites i.e., indwelling lines, tubes and drains. 4. Monitor endotracheal (as able) and nasal secretions for changes in amount and color. 5. Administer medications as ordered. 6. Instruct and encourage patient and family to use good hand hygiene technique. 7. Identify and instruct patient/patient customer support representative in use of appropriate isolation precautionsfor identified infection/symptoms. 8. Provide and discuss with patient/patient customer support representative on educational MDRO sheet. 9. Encourage and monitor nutritional status daily and consult mathematics lecturer if indicated. 10. Implement neutropenic guidelines as needed. Outcome: Progressing Note: Evaluation of progress towards goal: Patient VS WNL, remains afebrile for shift. Continue to monitor. Problem: Knowledge Deficit Goal: Patient/patient customer support representative demonstrates understanding of disease process, treatment plan,medications, and discharge instructions Description: INTERVENTIONS 1. Complete learning assessment and assess knowledge base 2. Provide teaching at level of understanding 3. Provide teaching via preferred learning method(s) Outcome: Progressing Note: Evaluation of progress towards goal: POC discussed with patient. Questions answered PRN. * Plan of Care - Zafar Fierro [facility] - 08/24/2025 2:41 PM EDT Problem: Medication Description: If medication is necessary, use low-risk medication that does not interfere with what matters to the older adult patient, mobility, or mentation across settings of care. Goal: Patient will be screened for high-risk medications once per stay Description: Interventions: 1. Pharmacist to perform medication review to screen for high-risk medications 2. Pharmacist to identify high-risk medications in the Plan of Care note 3. Pharmacist to make recommendations for follow-up in the Plan of Care note, if warranted Outcome: Completed Note: Medications individually and in combination may interfere with What Matters, Mentation, and safe Mobility because of the increased risk of confusion, delirium, unsteadiness and falls. Profile review indicates this patients has active orders for benzodiazepines (Zolpidem) and muscle relaxants ( Methocarbamol). Chart review also shows no change in renal function. * Plan of Care - Umang Rodney RN - 08/24/2025 9:58 AM EDT Problem: Inadequate Airway Clearance Goal: Patient will maintain patent airway Description: INTERVENTIONS 1. Assess and monitor breath sounds, cough and sputum (if present) 2. Monitor respiratory rate and oxygen saturation 3. Collaborate with respiratory therapy to administer medication, oxygen, and suitable airway clearance techniques as ordered 4. Position patient for maximum ventilatory efficiency; elevate head of bed at least 30 degrees if appropriate 5. Provide adequate fluid intake to liquify secretions if appropriate 6. Suction secretions as indicated to maintain patent airway 7. Instruct patient to turn, cough, and deep breathe; encourage incentive spirometer if indicated Outcome: Progressing Note: Evaluation of progress towards goal: Patient on O2 at 2lpm as of now. Will do wean trial Problem: Inadequate Breathing Pattern Goal: Patient will achieve/maintain normal respiratory rate/effort Description: Patient's goal is: INTERVENTIONS 1. Assess and monitor respiratory rate, effort, breathing pattern, and oxygenation 2. Monitor patient for restlessness, anxiety, air hunger 3. Assess physical activity tolerance 4. Assess tobacco history; ask, advise, and refer as appropriate 5. Collaborate with interdisciplinary team and initiate plans/interventions as needed Outcome: Progressing Note: Evaluation of progress towards goal: Patient breathing adequately at this time. Continue monitoring. Goal: Patient will maintain effective ventilation Description: Patient's goal is: INTERVENTIONS 1. Assess and monitor vital signs, respiratory status (to include respiratory rate, depth, effort, and breath sounds), oxygen saturation, oral mucosa, tongue, pain, and labs (ABGs). 2. Collaborate with interdisciplinary team and initiate plans and interventions as needed 3. Oxygen therapy as indicated 4. Position patient for maximum ventilatory efficiency 5. Instruct patient to turn, cough, and deep breathe; encourage incentive spirometer if indicated 6. Plan activities to conserve energy 7. Encourage ambulation/activity per patient's tolerance 8. Collaborate with patient/RT to administer medications/treatments 9. Monitor lab/diagnostic results Outcome: Progressing Note: Evaluation of progress towards goal: Pulse Ox remains above 90% consistently Problem: Anxiety Goal: Anxiety is at manageable level Description: Patient's goal is: INTERVENTIONS 1. Assess and monitor patient's anxiety level 2. Monitor for signs and symptoms of anxiety both physical and emotional (heart palpitations, chestpain, shortness of breath, headaches, nausea, feeling jumpy, restlessness, irritable, apprehensive) 3. Reorient/orient patient to unit/surroundings 4. Explain treatment plan 5. Explain tests/procedures prior to initiation 6. Encourage participation in care 7. Encourage verbalization of concerns/fears 8. Assess coping mechanisms 9. Assist in developing anxiety-reducing skills 10. Administer complimentary therapies 11. Manage patient's environment 12. Limit or eliminate stimulants such as caffeine and nicotine 13. Collaborate with ancillary departments 14. Include patient/patient customer support representative in decisions related to anxiety Outcome: Progressing Note: Evaluation of progress towards goal: No demonstration of anxious behaviors Problem: Activity Intolerance/Impaired Mobility Goal: Mobility/activity is maintained at optimum level for patient Description: Patient's goal is: INTERVENTIONS 1. Assess and monitor patient barriers to mobility and need for assistive/adaptive devices 2. Assess patient's emotional response to limitations 3. Collaborate with interdisciplinary teams and initiate plans and interventions as ordered 4. Encourage independent activity per tolerance 5. Maintain proper body alignment 6. Perform active/passive ROM as tolerated/ordered 7. Coordinate activities to conserve energy 8. Reposition patient 9. Ensure adequate rest/sleep time Outcome: Progressing Note: Evaluation of progress towards goal: Patient tolerating activity to Bathroom and back Problem: Inadequate Coping Goal: Demonstrates and verbalizes ability to cope effectively Description: Patient's goal is: INTERVENTIONS 1. Patient is able to verbalize feelings related to emotional state 2. Encourage verbalization of feelings, perceptions, fears, stressors, loss of loved ones 3. Encourage verbalization of problems out of their control 4. Encourage participation in care and self management 5. Inform patient of all treatment/care prior to providing care 6. Collaborate with pastoral/spiritual care, perinatal social worker, mental health counselor as needed. 7. Instruct patient on diversional activities such as physical activity, distraction, and deep breathing exercises to assist with coping 8. Involve patient's customer support representative in care Outcome: Progressing Note: Evaluation of progress towards goal: Nursing staff offers support * Discharge Planning Note - SHREYA Irving - 08/24/2025 9:44 AM EDT Images from the original note were not included. Initial Assessment Discharge Planning Assessment Alisa Carroll Admit Status: Observation Meet: Unknown Readmission Risk: N/A. Date of Admission: 08/23/2025 GMLOS: <48 hours Target Discharge Date: 08/25/2025 Discharge Planning Assessment completed via phone. Industrial Education Teacher identified self and role to the patient. Patient is agreeable to the assessment and discussion of a safe discharge plan. Initial Assessment Flowsheet Row Most Recent Value Patient Information Initial Pre-Hospitalization Assessment Completed? Completed Primary Caregiver Self Support System Spouse/Significant Other Discharge Planning Living Arrangements Spouse/significant other Assistance Needed Patient is independent with ADLs and mobility. She lives with spouse in mobile home with 3 steps to enter (bilateral hand rails). She does still drive. She has a rollator, walker, and a cane. She follows with pain management and Rheumatology. Per spouse, patient does not have homeO2 or nebulizer. Will need new referral to [facility] if needed for home. Patient does not endorse any financial barriers to food, medication, or utiltiies. Type of Residence Private residence Private Residence 1 story Can patient reside on one level? Yes Residence Accessibility Steps into home Number of Steps 3 Home Care Services No Community Agencies Currently Utilized None Community Referrals / Resources Provided Denies needs Does The Patient Have Existing Home DME? Yes Existing Home DME Options Rollator w/ Seat, Cane, Walker Will the patient need DME at discharge? No, the patient has no home DME needs currently Stressors Income Information Income Information Retired/Pension/Social Security IP Hunger/Food Insecurity Screening Within the past 12 months we worried whether our food would run out before we got money to buy more. Never True Within the past 12 months the food we bought just didn't last and we didn't have money to get more.Never True Hunger Screening Complete? Yes Warm Handoff Complete Caregiver/Family Member Caregiver/Support System Limitations Caregiver/Support Systems Limitations (Check All That Apply) No Caregiver Needed Patient/Caregiver Goals Patient/Caregiver Goals Home No Needs Home No Needs Alone Community Provider Referral Community Provider Referral None Services Requested Patient expects to be discharged to: Home with self care and possible new home O2 and nebulizer Does the patient wish to have family/friend/caregiver involved in their discharge planning? No, thepatient does not wish to have family/friend/caregiver involved in their discharge planning Discharge Disposition Home with self care, Home Durable Medical Equipment 3-Midnight [facility]: [facility] PCP: Dr. Garcia Consulting Providers this admission: none Patient will make her own follow up appointments: no Patient Goals: Goals Home with self care and possible new home O2/nebulizer (pt-stated) Evaluation of progress towards goal: Patient will return home with self care and possible home O2 and/or nebulizer Plan to prevent readmission: Follow up with PCP Patient/Family do not endorse any questions at this time. Patient Discharge Plan: Home with self care and possible new home O2 and/or nebulizer Follow up with Dr. Garcia (PCP) within 7-10 days. Appointment tasked to transition center. Care Navigation to follow for possible new referral to [facility] per patient/spouse choice for new home O2 and/or new nebulizer. - SHREYA Irving 08/24/25 10:19 AM Appointment scheduled as follows: Patient Discharge Plan: Home with self care and possible new home O2 and/or nebulizer Follow up with Dr. Garcia (PCP) on 09/01/2025 at 10:45 am. Care Navigation to follow for possible new referral to [facility] per patient/spouse choice for new home O2 and/or new nebulizer. - SHREYA Irving 08/24/25 2:02 PM documented in this encounter Plan of Treatment DateTypeDepartmentCare Team (Latest Contact Info)Ylcbvaaclpi80/26/2025 10:45 AM ESTOffice [facility] [address] [place] [phone] Erika Harrell PA-C [address] [place], [place] [phone] 12/15/2025 1:00 PM ESTOffice Visit [facility] [address] [place] [phone] Kelly Pritchard MD [address] [address] NameTypePriorityAssociated DiagnosesOrder ScheduleBasic Metabolic PanelLab Routine Hypokalemia Expected: 09/01/2025 (Approximate), Expires: 08/25/2026documented as of this encounter Goals GoalPatient Goal TypeAssociated ProblemsRecent ProgressPatient-Stated?Author Home with self care and possible new home O2/nebulizer Therese Adhikari LSW Note: Evaluation of progress towards goal: Patient will return home with self care and possible home O2 and/or nebulizer documented as of this encounter Procedures Procedure NamePriorityDate/TimeAssociated DiagnosisCommentsCBC WITH AUTO DNIYUKKSIWHSOqdqfsw15/23/2025 5:28 AM EDT YRJSTJCQBTulghcn01/23/2025 5:28 AM EDT COMPREHENSIVE METABOLIC IGNDFCxtmybx07/23/2025 5:28 AM EDT ER EXTRA URINE XUXTIKWCYX33/22/2025 8:40 PM EDT ER EXTRA URINE IWGSGCSFNPD72/22/2025 8:40 PM EDT ER EXTRA BAPVTZBZJ19/22/2025 8:40 PM EDT VCEDJPXMSFyssbdj95/22/2025 3:50 PM EDT JFGSQBZYTHnzmavt69/22/2025 3:50 PM EDT TROP I, HIGH SENSITIVITY 3 PPHSOdsuzpu49/22/2025 5:25 AM EDT CBC WITH AUTO VJAMEOVLQGPZVdfcosi17/22/2025 5:25 AM EDT IKKDGVCRTDzolqnk09/22/2025 5:25 AM EDT COMPREHENSIVE METABOLIC LEXZMSvtbsxg49/22/2025 5:25 AM EDT EXTRA TUBES BLUE IEHLiglsaq52/22/2025 5:24 AM EDT EXTRA UIFLHJvpbusl90/22/2025 5:24 AM EDT PULSE OXIMETRY, GSUKTqwyynn17/21/2025 7:52 PM EDTEXTRA TUBES SST TOPRoutine 08/23/2025 7:37 PM EDT TROP I, HIGH SENSITIVITY 1 OFZYZXVK42/21/2025 7:37 PM EDT EXTRA EQMXUAhmwtse24/21/2025 7:37 PM EDT BLOOD BVEVIMQGQAB68/21/2025 7:37 PM EDT ECG 12-AJTKTJJR90/21/2025 6:03 PM EDT LACTATE W/ YQSSFPWTOC70/21/2025 5:54 PM EDT BLOOD WAKTCGIWYOO22/21/2025 5:[address] ABDOMEN AND PELVIS W ZFLUEVEN56/21/2025 5:[address] BRAIN WO NRJBLNPM10/21/2025 5:31 PM EDT XR CHEST 1 JVQBOU3508/23/2025 4:51 PM EDT TROPONIN I, HIGH SENSITIVITY 0 HOURAdd-On08/23/2025 4:19 PM EDT EXTRA TUBES BLUE UGRRvsiasz24/21/2025 4:19 PM EDT TROPONIN I, HIGH SENSITIVITY 0 HOURAdd-On08/23/2025 4:19 PM EDT PROCALCITONINAdd-On08/23/2025 4:19 PM EDT EXTRA BSMXODodwwps19/21/2025 4:19 PM EDT CBC WITH AUTO UNWUIJOXNBDLUGDD84/21/2025 4:19 PM EDT B-TYPE NATRIURETIC PEPTIDESTAT Add-on08/23/2025 4:19 PM EDT COMPREHENSIVE METABOLIC PWFUUIMAF63/21/2025 4:19 PM EDT documented in this encounter Results * (ABNORMAL) CBC auto differential (08/25/2025 5:28 AM EDT)ComponentValueRef RangeTest MethodAnalysis TimePerformed AtPathologist SignatureWBC8.74 - 11 x10E9/L1 6:23 AM EDTPPARMA COMMUNITY GENERAL HOSPITALRBC Count4.41 3.8 - 5.2 X10E12/L1 6:23 AM EDTPPARMA COMMUNITY GENERAL [facility]OSPITAL Zrqhgcfdhy44.911.7 - 15.5 g/dL08/25/2025 6:23 AM EDTPPARMA COMMUNITY GENERAL HOSPITALHematocrit37.835 - 47 %08/25/2025 6:23 AM EDTPPARMA COMMUNITY GENERAL HOSPITALMCV8680 - 100 fL08/25/2025 6:23 AM EDHOLMES COUNTY [facility] HOSPITALMCH29.327 - 34 pg08/25/2025 6:23 AM EDTPPARMA COMMUNITY GENERAL HOSPITALMCHC34.232 - 36 g/dL08/25/2025 6:23 AM EDTPPARMA COMMUNITY GENERAL HOSPITALRDW16.7(H)11.5 - 15 %08/25/2025 6:23 AM EDTPPARMA COMMUNITY GENERAL HOSPITALPlatelet Cowff388919 - 450 X10E9/L1 6:23 AM EDT [facility]MPV10.07 - 12 fL08/25/2025 6:23 AM EDT [facility]ICNeutrophils %81.4%08/25/2025 6:23 AM EDT [facility]ICLymphocytes %12.0%08/25/2025 6:23 AM EDT [facility]IUMMonocytes %6.1%08/25/2025 6:23 AM EDT [facility]OS[facility]ITALEosinophils %0.3%08/25/2025 6:23 AM EDT [facility]Basophils %0.2%08/25/2025 6:23 AM EDT [facility]ARIUMNeutrophils Absolute (A)7.1(H)1.5 - 6.6 10*3/uL08/25/2025 6:23 AM EDTPPARMA COMMUNITY GENERAL HOSPITALLymphocytes Absolute1.01.0 - 3.5 10*3/uL08/25/2025 6:23 AM EDTPPARMA COMMUNITY GENERAL HOSPITALMonocytes Absolute0.50.0 - 0.9 10*3/uL08/25/2025 6:23 AM EDTPPARMA COMMUNITY GENERAL HOSPITALEosinophils Absolute0.00.0 - 0.4 10*3/uL08/25/2025 6:23 AM EDHOLMES COUNTY [facility]OMER[facility] HOSPITALBasophils Absolute0.00.0 - 0.2 10*3/uL08/25/2025 6:23 AM [facility]OSPITALDifferential TypeAUTOMATED FLPELULYIUTG03/23/2025 6:23 AM [facility]ITALpecimen (Source)Anatomical Location / LateralityCollection Method / VolumeCollection TimeReceived TimeBloodVenous blood / UnknownVenipuncture / Bxpphrg0908/25/2025 5:28 AM EDT1 6:17 AM EDT Narrative Authorizing ProviderResult TypeResult StatusAngeoscar Aragon EXECUTIVE VP-CNPLAB BLOOD ORDERABLESFinal ResultPerforming OrganizationAddressCity/State/ZIP CodePhone Number [address] [place] [address], [place] * Magnesium (08/25/2025 5:28 AM EDT)ComponentValueRef RangeTest MethodAnalysis TimePerformed AtPathologist SignatureMAGNESIUM2.11.8 - 2.6 mg/dL08/25/2025 6:49 AM [facility] (Source)Anatomical Location / LateralityCollection Method / VolumeCollection TimeReceived Time BloodVenous blood / UnknownVenipuncture / Pofuzsy3608/25/2025 5:28 AM EDT 08/25/2025 6:18 AM EDT Narrative Authorizing ProviderResult TypeResult StatusAngeoscar Aragon EXECUTIVE VP-CNPLAB BLOOD ORDERABLESFinal ResultPerforming OrganizationAddressty/State/ZIP CodePhone Number [address] [place] [address], [place] * (ABNORMAL) Comprehensive metabolic panel (08/25/2025 5:28 AM EDT)Component ValueRef RangeTest MethodAnalysis TimePerformed AtPathologist SignatureSODIUM 648231 - 146 mmol/L1 6:49 AM [facility] POTASSIUM4.33.5 - 5.0 mmol/L1 6:49 AM [facility] HOSPITALCHLORIDE10298 - 109 mmol/L1 6:49 AM [facility] HOSPITALCARBON SQIOUJZ4589 - 32 mmol/L1 6:49 AM [facility] HOSPITALANION GAP95 - 15 mmol/L1 6:49 AM EDT [facility]ICBLOOD UREA EIQELORF895 - 27 mg/dL08/25/2025 6:49 AM [facility] HOSPITALCREATININE0.660.40 - 1.00 mg/dL 08/25/2025 6:49 AM [facility] HOSPITALComment:METHOD TRACEABLE TO IDMS NMRCUJEQUXPILGG783(H)65 - 99 mg/dL08/25/2025 6:49 AM EDT [facility]ICCALCIUM8.3(L)8.5 - 10.5 mg/dL08/25/2025 6:49 AM [facility] HOSPITALTOTAL PROTEIN7.06.0 - 8.0 g/dL 08/25/2025 6:49 AM [facility] HOSPITALALBUMIN2.4(L)3.2 - 5.3 g/dL08/25/2025 6:49 AM [facility] HOSPITALALKALINE DKTMFPPCDMD5656 - 130 U/L1 6:49 AM [facility]ITALAST28<=41 U/L1 6:49 AM [facility] ALT19<=31 U/L1 6:49 AM [facility] BILIRUBIN,TOTAL1.9(H)0.3 - 1.2 mg/dL08/25/2025 6:49 AM [facility] HOSPITALEGFR Non-Race Dependent>90>=60 ml/min/1.73sq.m1 6:49 AM [facility]OSPITALComment: eGFR not reported due to non-numeric value for Creatinine. Reported eGFR is based on the CKD-EPI 2020 equation that does not use a race coefficient. Specimen (Source)Anatomical Location / LateralityCollection Method / Volume Collection TimeReceived TimeBloodVenous blood / UnknownVenipuncture / Unknown 08/25/2025 5:28 AM EDT1 6:18 AM EDT Narrative Authorizing ProviderResult TypeResult StatusKianna Aragon EXECUTIVE VP-CNPLAB BLOOD ORDERABLESFinal ResultPerforming OrganizationAddGood Shepherd Specialty Hospitalty/State/ZIP CodePhone Number [address] [place] [address], [place] * Extra Urine Warriors Mark (08/24/2025 8:40 PM EDT)ComponentValueRef RangeTest Method Analysis TimePerformed AtPathologist SignatureExtra TubeAuto Resulted 08/24/2025 10:01 PM EDMer[facility] (Source) Anatomical Location / LateralityCollection Method / VolumeCollection Time Received TimeUrineUrine specimen collection, clean catch / Lsuyuhy1908/24/2025 8:40 PM EDT1 9:17 PM EDT Narrative Authorizing ProviderResult TypeResult StatusShayne A Ruiz DOURINE ORDERABLES Final ResultPerforming OrganizationAddGood Shepherd Specialty Hospitalty/State/ZIP CodePhone Number [address] [place] [address], [place] * Extra Urine Culture (08/24/2025 8:40 PM EDT)ComponentValueRef RangeTest Method Analysis TimePerformed AtPathologist SignatureExtra TubeAuto Resulted 08/24/2025 10:01 PM [facility] (Source) Anatomical Location / LateralityCollection Method / VolumeCollection Time Received TimeUrineUrine specimen collection, clean catch / Krsyebo1708/24/2025 8:40 PM EDT1 9:18 PM EDT Narrative Authorizing ProviderResult TypeResult StatusShayne A Ruiz DOURINE ORDERABLES Final ResultPerforming OrganizationAddGood Shepherd Specialty Hospitalty/State/ZIP CodePhone Number [address] [place] [address], [place] * Extra Urine (08/24/2025 8:40 PM EDT)ComponentValueRef RangeTest MethodAnalysis TimePerformed AtPathologist SignatureExtra TubeAuto Sssrnvgq84/22/2025 10:01 PM EDBrown [facility] Hospitaln (Source)Anatomical Location / LateralityCollection Method / VolumeCollection TimeReceived TimeUrineUrine specimen collection, clean catch / Jhperxx4308/24/2025 8:40 PM EDT1 9:18 PM EDT Narrative Authorizing ProviderResult TypeResult StatusShayne A Ruiz DOURINE ORDERABLES Final ResultPerforming OrganizationAddressCity/State/ZIP CodePhone Number [address] [place] [address], [place] * Magnesium (08/24/2025 3:50 PM EDT)ComponentValueRef RangeTest MethodAnalysis TimePerformed AtPathologist SignatureMAGNESIUM2.21.8 - 2.6 mg/dL08/24/2025 4:41 PM EDMer[facility] (Source)Anatomical Location / LateralityCollection Method / VolumeCollection TimeReceived Time BloodVenous blood / UnknownVenipuncture / Agixhey0808/24/2025 3:50 PM EDT 08/24/2025 4:18 PM EDT Narrative Authorizing ProviderResult TypeResult StatusAngela Mahesh EXECUTIVE VP-CNPLAB BLOOD ORDERABLESFinal ResultPerforming OrganizationAddressCity/State/ZIP CodePhone Number [address] [place] [address], [place] * (ABNORMAL) Potassium (08/24/2025 3:50 PM EDT)ComponentValueRef RangeTest MethodAnalysis TimePerformed AtPathologist SignaturePOTASSIUM3.4(L)3.5 - 5.0 mmol/L1 4:40 PM EDMer[facility] (Source)Anatomical Location / LateralityCollection Method / VolumeCollection TimeReceived TimeBloodVenous blood / UnknownVenipuncture / Cbcehcw5208/24/2025 3:50 PM EDT1 4:18 PM EDT Narrative Authorizing ProviderResult TypeResult StatusAngela Danville EXECUTIVE VP-CNPLAB BLOOD ORDERABLESFinal ResultPerforming OrganizationAddressCity/State/ZIP CodePhone Number [facility] [address] [place] [address], [place] * (ABNORMAL) Troponin I, High Sensitivity 3 Hour (08/24/2025 5:25 AM EDT) ComponentValueRef RangeTest MethodAnalysis TimePerformed AtPathologist SignatureTROPONIN I, HIGH CCFVKAZODZU17(H)<16 ng/L1 8:45 AM EDT [facility]ITALpecimen (Source)Anatomical Location / LateralityCollection Method / VolumeCollection TimeReceived TimeBloodVenous blood / UnknownVenipuncture / Cnwcjwk2708/24/2025 5:25 AM EDT1 5:48 AM EDT Narrative [facility] - 08/24/2025 8:45 AM EDT Elevations of hs-Troponin may be due to causes other than myocardial ischemia. Recommend serial hs-Troponin testing be performed. For the initial evaluation and management of chest pain patients, refer to the algorithms linked below. Emergency Patient: [email or web address] Inpatient: [email or web address] Authorizing ProviderResult TypeResult StatusKaleem James Gardiner MDLAB BLOOD ORDERABLES Final ResultPerforming OrganizationAddressCity/State/ZIP CodePhone Number [address] [place] [address], [place] * (ABNORMAL) CBC auto differential (08/24/2025 5:25 AM EDT)ComponentValueRef RangeTest MethodAnalysis TimePerformed AtPathologist ZklyjvzcnEPZ58.9(H)4 - 11 x10E9/L1 6:00 AM EDHOLMES COUNTY [facility]OM[facility] HOSPITALRBC Count4.23 3.8 - 5.2 X10E12/L1 6:00 AM [facility] Jcbwdjxlfo63.411.7 - 15.5 g/dL08/24/2025 6:00 AM EDTPPARMA COMMUNITY GENERAL HOSPITALHematocrit36.135 - 47 %08/24/2025 6:00 AM EDHOLMES COUNTY [facility] HOSPITALMCV8580 - 100 fL08/24/2025 6:00 AM [facility]ITALMCH29.227 - 34 pg08/24/2025 6:00 AM EDHOLM[facility] HOSPITALMCHC34.232 - 36 g/dL08/24/2025 6:00 AM EDTPPARMA COMMUNITY GENERAL HOSPITALRDW16.5(H)11.5 - 15 %08/24/2025 6:00 AM EDHOLMES COUNTY [facility]OM[facility] HOSPITALPlatelet Ohxeq276624 - 450 X10E9/L1 6:00 AM EDT [facility]MPV10.07 - 12 fL08/24/2025 6:00 AM EDT [facility]ICNeutrophils %65.6%08/24/2025 6:00 AM EDT [facility]ICLymphocytes %19.9%08/24/2025 6:00 AM EDT [facility]ICMonocytes %12.5%08/24/2025 6:00 AM EDT [facility]OSPITALEosinophils %1.6%08/24/2025 6:00 AM EDT [facility]ICBasophils %0.4%08/24/2025 6:00 AM EDT [facility]ICNeutrophils Absolute (A)7.8(H)1.5 - 6.6 10*3/uL08/24/2025 6:00 AM EDTPPARMA COMMUNITY GENERAL HOSPITALLymphocytes Absolute2.41.0 - 3.5 10*3/uL08/24/2025 6:00 AM EDTPPARMA COMMUNITY GENERAL HOSPITALMonocytes Absolute1.5(H)0.0 - 0.9 10*3/uL08/24/2025 6:00 AM EDT [facility]ICEosinophils Absolute0.20.0 - 0.4 10*3/uL 08/24/2025 6:00 AM [facility]OS[facility]ITALBasophils Absolute0.0 0.0 - 0.2 10*3/uL08/24/2025 6:00 AM [facility] Differential TypeAUTOMATED PMHJTJTDDVCT20/22/2025 6:00 AM [facility]pec[facility] (Source)Anatomical Location / LateralityCollection Method / VolumeCollection TimeReceived TimeBloodVenous blood / Unknown Venipuncture / Vjggzsl3208/24/2025 5:25 AM EDT1 5:48 AM EDT Narrative Authorizing ProviderResult TypeResult StatusAngeoscar Aragon EXECUTIVE VP-CNPLAB BLOOD ORDERABLESFinal ResultPerforming OrganizationAddressty/State/ZIP CodePhone Number [address] [place] [address], [place] * Magnesium (08/24/2025 5:25 AM EDT)ComponentValueRef RangeTest MethodAnalysis TimePerformed AtPathologist SignatureMAGNESIUM1.91.8 - 2.6 mg/dL08/24/2025 6:13 AM [facility]ITALpec[facility] (Source)Anatomical Location / LateralityCollection Method / VolumeCollection TimeReceived Time BloodVenous blood / UnknownVenipuncture / Cwjwtyc7608/24/2025 5:25 AM EDT 08/24/2025 5:48 AM EDT Narrative Authorizing ProviderResult TypeResult StatusKianna Aragon EXECUTIVE VP-CNPLAB BLOOD ORDERABLESFinal ResultPerforming OrganizationAddressty/State/ZIP CodePhone Number [address] [place] [address], [place] * (ABNORMAL) Comprehensive metabolic panel (08/24/2025 5:25 AM EDT)Component ValueRef RangeTest MethodAnalysis TimePerformed AtPathologist SignatureSODIUM 698077 - 146 mmol/L1 6:14 AM [facility] POTASSIUM2.6(LL)3.5 - 5.0 mmol/L1 6:14 AM EDHOLMES [facility] HOSPITALCHLORIDE10098 - 109 mmol/L1 6:14 AM [facility] HOSPITALCARBON EUFLLBF5740 - 32 mmol/L1 6:14 AM EDT [facility]ICANION MHB686 - 15 mmol/L1 6:14 AM [facility] HOSPITALBLOOD UREA WQTRLLMM058 - 27 mg/dL 08/24/2025 6:14 AM [facility] HOSPITALCREATININE0.820.40 - 1.00 mg/dL08/24/2025 6:14 AM [facility]OSPITALComment: METHOD TRACEABLE TO IDMS CKRUIOYCWOQHJSO0176 - 99 mg/dL08/24/2025 6:14 AM EDT [facility]ICCALCIUM7.9(L)8.5 - 10.5 mg/dL08/24/2025 6:14 AM [facility]OSPITALTOTAL PROTEIN6.06.0 - 8.0 g/dL 08/24/2025 6:14 AM [facility] HOSPITALALBUMIN2.2(L)3.2 - 5.3 g/dL08/24/2025 6:14 AM [facility] HOSPITALALKALINE WAICIQDLKMB1120 - 130 U/L1 6:14 AM [facility]ITALAST28<=41 U/L1 6:14 AM [facility] ALT18<=31 U/L1 6:14 AM [facility] BILIRUBIN,TOTAL3.7(H)0.3 - 1.2 mg/dL08/24/2025 6:14 AM [facility] HOSPITALEGFR Non-Race Kbcqgaoje45>=60 ml/min/1.73sq.m1 6:14 AM [facility]OSPITALComment: Reported eGFR is based on the CKD-EPI 2020 equation that does not use a race coefficient. Specimen (Source)Anatomical Location / LateralityCollection Method / Volume Collection TimeReceived TimeBloodVenous blood / UnknownVenipuncture / Unknown 08/24/2025 5:25 AM EDT1 5:48 AM EDT Narrative Authorizing ProviderResult TypeResult StatusKianna Aragon EXECUTIVE VP-CNPLAB BLOOD ORDERABLESFinal ResultPerforming OrganizationAddressCity/State/ZIP CodePhone Number [address] [place] [address], [place] * Light Blue Top (08/24/2025 5:24 AM EDT)ComponentValueRef RangeTest Method Analysis TimePerformed AtPathologist SignatureExtra TubeAuto Resulted 08/24/2025 7:01 AM EDMer[facility] (Source) Anatomical Location / LateralityCollection Method / VolumeCollection Time Received TimeBloodVenous blood / Vrxcver5708/24/2025 5:24 AM EDT1 5:49 AM EDT Narrative Authorizing ProviderResult TypeResult StatusKaleem U Gardiner MDLAB BLOOD ORDERABLES Final ResultPerforming OrganizationAddressCity/State/ZIP CodePhone Number [address] [place] [address], [place] * SST TOP (08/23/2025 7:37 PM EDT)ComponentValueRef RangeTest MethodAnalysis TimePerformed AtPathologist SignatureExtra TubeAuto Dfpccoea04/21/2025 9:01 PM [facility] (Source)Anatomical Location / LateralityCollection Method / VolumeCollection TimeReceived TimeBloodVenous blood / Jxmzehu2608/23/2025 7:37 PM EDT1 8:02 PM EDT Narrative Authorizing ProviderResult TypeResult StatusShayne A Ruiz DOLAB BLOOD ORDERABLESFinal ResultPerforming OrganizationAddressCity/State/ZIP CodePhone Number [address] [place] [address], [place] * (ABNORMAL) Troponin I, High Sensitivity 1 Hour (08/23/2025 7:37 PM EDT) ComponentValueRef RangeTest MethodAnalysis TimePerformed AtPathologist SignatureTROPONIN I, HIGH FPRSMVAZAEO882(H)<16 ng/L1 8:35 PM EDT [facility]ITALpecimen (Source)Anatomical Location / LateralityCollection Method / VolumeCollection TimeReceived TimeBloodVenous blood / UnknownVenipuncture / Wtyqxgx6508/23/2025 7:37 PM EDT1 8:02 PM EDT Narrative [facility] - 08/23/2025 8:35 PM EDT Elevations of hs-Troponin may be due to causes other than myocardial ischemia. Recommend serial hs-Troponin testing be performed. For the initial evaluation and management of chest pain patients, refer to the algorithms linked below. Emergency Patient: [email or web address] Inpatient: [email or web address] Authorizing ProviderResult TypeResult StatusShayne A Ruiz DOLAB BLOOD ORDERABLESFinal ResultPerforming OrganizationAddressCity/State/ZIP CodePhone Number [facility] [address] [place] [address], [place] * Blood culture (08/23/2025 7:37 PM EDT)ComponentValueRef RangeTest Method Analysis TimePerformed AtPathologist SignatureCULTURE RESULTSNO GROWTH 5 DAYS 08/29/2025 3:02 AM [facility]ATORYSpecimen (Source) Anatomical Location / LateralityCollection Method / VolumeCollection Time Received TimeBloodVenous blood / UnknownVenipuncture / Bwubjpc1708/23/2025 7:37 PM EDT1 8:02 PM EDT Narrative Authorizing ProviderResult TypeResult StatusShayne A Ruiz DOMICROBIOLOGY - GENERAL ORDERABLESFinal ResultPerforming OrganizationAddressCity/State/ZIP Code Phone Number [facility] [address] [place] [address], [place] [phone] * ECG 12 lead (08/23/2025 6:03 PM EDT)Specimen (Source)Anatomical Location / LateralityCollection Method / VolumeCollection TimeReceived Time08/23/2025 6:03 PM EDT Narrative [facility] - 09/03/2025 4:15 AM EDT Authorizing ProviderResult TypeResult StatusShayne A Ruiz DOECG ORDERABLES Final ResultPerforming OrganizationAddressCity/State/ZIP CodePhone Number TRACEMASTERVUE * Lactate w/ Reflex (08/23/2025 5:54 PM EDT)ComponentValueRef RangeTest Method Analysis TimePerformed AtPathologist SignatureLACTATE W/REFLEX2.00.4 - 2.0 mmol/L1 6:28 PM EDTPROMEDGARDENS [facility] - [place]IIAN GARDENSpecimen (Source)Anatomical Location / LateralityCollection Method / VolumeCollection TimeReceived TimeBloodVenous blood / UnknownVenipuncture / Zohytns8508/23/2025 5:54 PM EDT1 6:12 PM EDT Narrative [facility] - 08/23/2025 6:28 PM EDT Result did not trigger repeat Lactate, re-order if needed. Authorizing ProviderResult TypeResult StatusShayne A Ruiz DOLAB BLOOD ORDERABLESFinal ResultPerforming OrganizationAddressCity/State/ZIP CodePhone Number [facility] [address] [place] [address], * Blood culture (08/23/2025 5:54 PM EDT)ComponentValueRef RangeTest Method Analysis TimePerformed AtPathologist SignatureCULTURE RESULTSNO GROWTH 5 DAYS 08/29/2025 3:02 AM [facility]AD[facility] LABORATORYSpecimen (Source) Anatomical Location / LateralityCollection Method / VolumeCollection Time Received TimeBloodVenous blood / UnknownVenipuncture / Yszqnni2108/23/2025 5:54 PM EDT1 6:12 PM EDT Narrative Authorizing ProviderResult TypeResult StatusShayne A Ruiz DOMICROBIOLOGY - GENERAL ORDERABLESFinal ResultPerforming OrganizationAddressCity/State/ZIP Code Phone Number [facility] [address] [place] [address], * CT abdomen and pelvis with contrast (08/23/2025 5:33 PM EDT)Anatomical Region LateralityModalityBody, Abdomen, Body CoveraN/AComputed TomographySpecimen (Source)Anatomical Location / LateralityCollection Method / VolumeCollection TimeReceived Time08/23/2025 5:37 PM EDT Narrative 08/23/2025 5:41 PM EDT EXAM: ABDOMEN AND PELVIS CT WITH CONTRAST CLINICAL INFORMATION: elevated bilirubin. TECHNIQUE: CT abdomen and pelvis was performed utilizing 5 mm axial reconstructions following the uneventful administration of nonionic intravenous contrast. Coronal and sagittal reformatted images as well as delayed excretory phase images were obtained and reviewed. Automated exposure control was utilized. COMPARISON: None. FINDINGS: The limited visualized lung bases demonstrate a trace left effusion and bibasilar atelectasis. There is a calcified benign granuloma in the right lower lobe. There are morphologic changes of the liver compatible with cirrhosis. There is recanalization of the periumbilical vein and splenomegaly, compatible with underlying portal hypertension. There is no ascites. Punctate calcifications in the liver and spleen are compatible with old granulomatous disease. The gallbladder is absent. The pancreas is unremarkable. There is focal chronic cortical scarring in the lower pole of the right kidney. The left kidney is normal. There is no collecting system dilatation in either kidney. The adrenals are unremarkable. There are no dilated loops of bowel or evidence for pneumatosis or free air. A normal appendix is identified. There is diverticulosis without evidence for acute diverticulitis. There is no significant free fluid. There is focal borderline aneurysmal dilatation of the infrarenal abdominal aorta measuring up to 2.9 cm. Changes of left hip arthroplasty are noted. IMPRESSION: 1. No acute abnormalities in the abdomen and pelvis. 2. Cirrhosis with recanalization of the periumbilical vein and splenomegaly, compatible with portalhypertension. There is no ascites. 3. Trace left pleural effusion and mild bibasilar atelectasis. 4. Borderline infrarenal abdominal aortic aneurysm measuring up to 2.9 cm. 5. Multiple chronic and incidental CT findings, as above. All CT scans at this facility use dose modulation, iterative reconstruction, and/or weight based dosing when appropriate to reduce radiation dose to as low as reasonably achievable. Finalized by Peng Foote MD on 08/23/2025 5:41 PM Procedure Note Peng Foote MD - 08/23/2025 EXAM: ABDOMEN AND PELVIS CT WITH CONTRAST CLINICAL INFORMATION: elevated bilirubin. TECHNIQUE: CT abdomen and pelvis was performed utilizing 5 mm axial reconstructions following the uneventful administration of nonionicintravenous contrast. Coronal and sagittal reformatted images as well asdelayed excretory phase images were obtained and reviewed. Automatedexposure control was utilized. COMPARISON: None. FINDINGS: The limited visualized lung bases demonstrate a trace left effusion andbibasilar atelectasis. There is a calcified benign granuloma in the rightlower lobe. There are morphologic changes of the liver compatible with cirrhosis.There is recanalization of the periumbilical vein and splenomegaly,compatible with underlying portal hypertension. There is no ascites.Punctate calcifications in the liver and spleen are compatible with oldgranulomatous disease. The gallbladder is absent. The pancreas is unremarkable. There isfocal chronic cortical scarring in the lower pole of the right kidney. Theleft kidney is normal. There is no collecting system dilatation in eitherkidney. The adrenals are unremarkable. There are no dilated loops of bowel or evidence for pneumatosis or free air. A normal appendix is identified.There is diverticulosis without evidence for acute diverticulitis. Thereis no significant free fluid. There is focal borderline aneurysmaldilatation of the infrarenal abdominal aorta measuring up to 2.9 cm.Changes of left hip arthroplasty are noted. IMPRESSION: 1. No acute abnormalities in the abdomen and pelvis. 2. Cirrhosis with recanalization of the periumbilical vein andsplenomegaly, compatible with portal hypertension. There is no ascites. 3. Trace left pleural effusion and mild bibasilar atelectasis. 4. Borderline infrarenal abdominal aortic aneurysm measuring up to 2.9cm. 5. Multiple chronic and incidental CT findings, as above. All CT scans at this facility use dose modulation, iterativereconstruction, and/or weight based dosing when appropriate to reduceradiation dose to as low as reasonably achievable. Finalized by Peng Foote MD on 08/23/2025 5:41 PM Authorizing ProviderResult TypeResult StatusWes ROTHMG CT ORDERABLES Final Result * CT brain without contrast (08/23/2025 5:31 PM EDT)Anatomical RegionLaterality ModalityNeuro, Head, Head and Neck, Neuro CoveraN/AComputed TomographySpecimen (Source)Anatomical Location / LateralityCollection Method / VolumeCollection TimeReceived Time08/23/2025 5:35 PM EDT Narrative 08/23/2025 5:36 PM EDT EXAM: CT BRAIN WO CONT CLINICAL INFORMATION: altered mental status. TECHNIQUE: CT head was performed without contrast utilizing 2.5 mm axial reconstruction with imagesreviewed in bone and brain windows. Automated exposure control was utilized. COMPARISON: None. FINDINGS: There is no evidence for an acute intra or extra-axial hemorrhage. There are scattered areas of lowattenuation within the white matter, nonspecific though most commonly attributable to the sequela of chronic ischemic small vessel disease. The ervin-white matter differentiation is preserved. There is no intracranial mass effect. The ventricles are proportional to the overall brain volume without evidence for outflow obstruction. There is no shift of the midline structures and the basal cisterns are widely patent. There are no depressed or widely calvarial fractures. The paranasal sinuses are well aerated. The mastoids are clear. IMPRESSION: 1. No acute intracranial abnormalities. 2. White matter changes, most commonly attributable to the sequela of chronic ischemic small vesseldisease. 3. Please note, hyperacute ischemia can remain occult on CT. If there is persistent concern for acute ischemia, further evaluation with a dedicated MRI is recommended as clinically indicated. All CT scans at this facility use dose modulation, iterative reconstruction, and/or weight based dosing when appropriate to reduce radiation dose to as low as reasonably achievable. Finalized by Peng Foote MD on 08/23/2025 5:36 PM Procedure Note Peng Foote MD - 08/23/2025 EXAM: CT BRAIN WO CONT CLINICAL INFORMATION: altered mental status. TECHNIQUE: CT head was performed without contrast utilizing 2.5 mm axial reconstruction with images reviewed in bone and brain windows. Automatedexposure control was utilized. COMPARISON: None. FINDINGS: There is no evidence for an acute intra or extra-axial hemorrhage. Thereare scattered areas of low attenuation within the white matter,nonspecific though most commonly attributable to the sequela of chronicischemic small vessel disease. The ervin-white matter differentiation ispreserved. There is no intracranial mass effect. The ventricles are proportional to theoverall brain volume without evidence for outflow obstruction. There is noshift of the midline structures and the basal cisterns are widely patent.There are no depressed or widely calvarial fractures. Theparanasal sinuses are well aerated. The mastoids are clear. IMPRESSION: 1. No acute intracranial abnormalities. 2. White matter changes, most commonly attributable to the sequela ofchronic ischemic small vessel disease. 3. Please note, hyperacute ischemia can remain occult on CT. If there is persistent concern for acute ischemia, further evaluation with a dedicatedMRI is recommended as clinically indicated. All CT scans at this facility use dose modulation, iterativereconstruction, and/or weight based dosing when appropriate to reduceradiation dose to as low as reasonably achievable. Finalized by Peng Foote MD on 08/23/2025 5:36 PM Authorizing ProviderResult TypeResult Statusdarius Ruiz [facility] CT ORDERABLES Final Result * X-ray chest 1 view (08/23/2025 4:51 PM EDT)Anatomical RegionLateralityModality Body, ChestN/AComputed RadiographySpecimen (Source)Anatomical Location / LateralityCollection Method / VolumeCollection TimeReceived Time08/23/2025 4:53 PM EDT Narrative 08/23/2025 4:54 PM EDT History: Cough with shortness of breath. EXAM: Chest AP portable upright COMPARISON: None FINDINGS: Prominent cardiac silhouette. Aortic valve replacement. No significant vascular congestion. Vague patchy airspace opacity in the right upper lung. No pneumothorax. Small pleural effusions. IMPRESSION: Right upper lobe infiltrate. Small pleural effusions. Finalized by Go Zuluaga MD on 08/23/2025 4:54 PM Procedure Note Go Zuluaga MD - 08/23/2025 History: Cough with shortness of breath. EXAM: Chest AP portable upright COMPARISON: None FINDINGS: Prominent cardiac silhouette. Aortic valve replacement. Nosignificant vascular congestion. Vague patchy airspace opacity in theright upper lung. No pneumothorax. Small pleural effusions. IMPRESSION: Right upper lobe infiltrate. Small pleural effusions. Finalized by Go Zuluaga MD on 08/23/2025 4:54 PM Authorizing ProviderResult TypeResult Moses Ruiz [facility] DIAGNOSTIC IMAGING ORDERABLESFinal Result * (ABNORMAL) Procalcitonin (08/23/2025 4:19 PM EDT)ComponentValueRef RangeTest MethodAnalysis TimePerformed AtPathologist SignaturePROCALCITONIN0.27(H)<0.05 ng/mL08/23/2025 8:08 PM EDTPSt. Rita's Hospitalimen (Source)Anatomical Location / LateralityCollection Method / VolumeCollection TimeReceived TimeBloodVenous blood / UnknownVenipuncture / Qnwlkxl4308/23/2025 4:19 PM EDT1 4:21 PM EDT Narrative [facility] - 08/23/2025 8:08 PM EDT <0.50 ng/mL - Low risk of severe sepsis and/or septic shock. <2.00 ng/mL - Recommend retesting within 6-24 hours. >2.00 ng/mL - High risk of sepsis and/or septic shock. Authorizing ProviderResult TypeResult Fletcher Aragon EXECUTIVE VP-CNPLAB BLOOD ORDERABLESFinal ResultPerforming OrganizationAddressCity/State/ZIP CodePhone Number [facility] [address] * (ABNORMAL) Troponin I, High Sensitivity 0 Hour (08/23/2025 4:19 PM EDT) ComponentValueRef RangeTest MethodAnalysis TimePerformed AtPathologist SignatureTROPONIN I, HIGH MCRPZFHYCNK995(H)<16 ng/L1 6:16 PM EDT [facility] (Source)Anatomical Location / LateralityCollection Method / VolumeCollection TimeReceived TimeBloodVenous blood / UnknownVenipuncture / Zfcqxjm3208/23/2025 4:19 PM EDT1 4:21 PM EDT Narrative Authorizing ProviderResult TypeResult StatusShayne A Ruiz DOLAB BLOOD ORDERABLESFinal ResultPerforming OrganizationAddressty/State/ZIP CodePhone Number [address] [place] [address], [place] * (ABNORMAL) B-type natriuretic peptide (08/23/2025 4:19 PM EDT)ComponentValue Ref RangeTest MethodAnalysis TimePerformed AtPathologist XjoccjfdqOHP577(H) <=100 pg/mL08/23/2025 5:03 PM EDMer[facility] (Source)Anatomical Location / LateralityCollection Method / VolumeCollection TimeReceived TimeBloodVenous blood / UnknownVenipuncture / Xqqokus8208/23/2025 4:19 PM EDT1 4:21 PM EDT Narrative Authorizing ProviderResult TypeResult StatusShayne A Ruiz DOLAB BLOOD ORDERABLESFinal ResultPerforming OrganizationAddressCity/State/ZIP CodePhone Number [address] [place] [address], [place] * Light Blue Top (08/23/2025 4:19 PM EDT)ComponentValueRef RangeTest Method Analysis TimePerformed AtPathologist SignatureExtra TubeAuto Resulted 08/23/2025 6:01 PM [facility] (Source) Anatomical Location / LateralityCollection Method / VolumeCollection Time Received TimeBloodVenous blood / Fnaqvey4908/23/2025 4:19 PM EDT1 4:21 PM EDT Narrative Authorizing ProviderResult TypeResult StatusShayne A Ruiz DOLAB BLOOD ORDERABLESFinal ResultPerforming OrganizationAddPenn [facility] Health/State/ZIP CodePhone Number [address] [place] [address], [place] * (ABNORMAL) Comprehensive metabolic panel (08/23/2025 4:19 PM EDT)Component ValueRef RangeTest MethodAnalysis TimePerformed AtPathologist SignatureSODIUM [id number] - 146 mmol/L1 4:44 PM [facility] POTASSIUM2.6(LL)3.5 - 5.0 mmol/L1 4:44 PM [facility]ITALCHLORIDE9898 - 109 mmol/L1 4:44 PM EDHOLMES COUNTY [facility] HOSPITALCARBON [id number] - 32 mmol/L1 4:44 PM EDT [facility]ENTERANION ERJ814 - 15 mmol/L1 4:44 PM [facility] HOSPITALBLOOD UREA OBSDECYQ602 - 27 mg/dL 08/23/2025 4:44 PM [facility]ITALCREATININE0.980.40 - 1.00 mg/dL08/23/2025 4:44 PM [facility]PITALComment: METHOD TRACEABLE TO IDMS UFDWXROITDJUCSI734(H)65 - 99 mg/dL08/23/2025 4:44 PM [facility]ITALCALCIUM8.68.5 - 10.5 mg/dL08/23/2025 4:44 PM [facility]ITALTOTAL PROTEIN7.26.0 - 8.0 g/dL 08/23/2025 4:44 PM [facility] HOSPITALALBUMIN2.7(L)3.2 - 5.3 g/dL08/23/2025 4:44 PM [facility]OSPITALALKALINE AFLAEVCTAZF4549 - 130 U/L1 4:44 PM [facility]ITALAST40<=41 U/L1 4:44 PM [facility] ALT23<=31 U/L1 4:44 PM [facility] BILIRUBIN,TOTAL5.0(H)0.3 - 1.2 mg/dL08/23/2025 4:44 PM [facility] HOSPITALEGFR Non-Race Knhcgsawn84>=60 ml/min/1.73sq.m1 4:44 PM [facility]PITALComment: Reported eGFR is based on the CKD-EPI 2020 equation that does not use a race coefficient. Specimen (Source)Anatomical Location / LateralityCollection Method / Volume Collection TimeReceived TimeBloodVenous blood / UnknownVenipuncture / Unknown 08/23/2025 4:19 PM EDT1 4:21 PM EDT Narrative Authorizing ProviderResult TypeResult StatusShayne Susan Ruiz DOLAB BLOOD ORDERABLESFinal ResultPerforming OrganizationAddressCity/State/ZIP CodePhone Number [facility] [address] [place] [address], * (ABNORMAL) CBC auto differential (08/23/2025 4:19 PM EDT)ComponentValueRef RangeTest MethodAnalysis TimePerformed AtPathologist KnlxgduiiVMK25.8(H)4 - 11 x10E9/L1 5:26 PM EDTPPARMA COMMUNITY GENERAL HOSPITALRBC Count4.90 3.8 - 5.2 X10E12/L1 5:26 PM EDHOLMES [facility] Fwcmioxjre88.011.7 - 15.5 g/dL08/23/2025 5:26 PM EDTPPARMA COMMUNITY GENERAL HOSPITALHematocrit41.535 - 47 %08/23/2025 5:26 PM EDTPPARMA COMMUNITY GENERAL HOSPITALMCV8580 - 100 fL08/23/2025 5:26 PM EDTPPARMA COMMUNITY GENERAL HOSPITALMCH28.527 - 34 pg08/23/2025 5:26 PM EDTPPARMA COMMUNITY GENERAL HOSPITALMCHC33.732 - 36 g/dL08/23/2025 5:26 PM EDTPPARMA COMMUNITY GENERAL HOSPITALRDW16.5(H)11.5 - 15 %08/23/2025 5:26 PM EDTPPARMA COMMUNITY GENERAL HOSPITALPlatelet Pplaz289481 - 450 X10E9/L1 5:26 PM EDT [facility]ICMPV9.87 - 12 fL08/23/2025 5:26 PM EDT [facility]ICNeutrophils %68%08/23/2025 5:26 PM EDT [facility]Comment:This is an appended report. These results have been appended to a previously preliminary verified report. Lymphocytes %21%08/23/2025 5:26 PM [facility] Comment:This is an appended report. These results have been appended to a previously preliminary verified report.Monocytes %7%08/23/2025 5:26 PM [facility]This is an appended report. These results have been appended to a previously preliminary verified report. Eosinophils %2%08/23/2025 5:26 PM [facility] Comment:This is an appended report. These results have been appended to a previously preliminary verified report.Basophils %2%08/23/2025 5:26 PM [facility]Comment:This is an appended report. These results have been appended to a previously preliminary verified report. Neutrophils Absolute (M)10.8(H)1.5 - 6.6 10*3/uL08/23/2025 5:26 PM [facility]Comment:This is an appended report. These results have been appended to a previously preliminary verified report. Lymphocytes Absolute3.31.0 - 3.5 10*3/uL08/23/2025 5:26 PM [facility]ITALComment:This is an appended report. These results have been appended to a previously preliminary verified report.Monocytes Absolute1.1(H)0.0 - 0.9 10*3/uL08/23/2025 5:26 PM [facility]ITALComment:This is an appended report. These results have been appended to a previously preliminary verified report.Eosinophils Absolute0.3 0.0 - 0.4 10*3/uL08/23/2025 5:26 PM [facility] Comment:This is an appended report. These results have been appended to a previously preliminary verified report.Basophils Absolute0.3(H)0.0 - 0.2 10*3/uL08/23/2025 5:26 PM [facility]ITALComment:This is an appended report. These results have been appended to a previously preliminary verified report.RBC JmufatrgaqLhqrtv94/21/2025 5:26 PM EDT [facility]Comment:This is an appended report. These results have been appended to a previously preliminary verified report. Differential TypeMANUAL RMPGWDZTDGSZ26/21/2025 5:26 PM EDTPROMEDICA HAR[facility]OR-UCLA MEDICAL CENTERComment:This is an appended report. These results have been appended to a previously preliminary verified report.Specimen (Source) Anatomical Location / LateralityCollection Method / VolumeCollection Time Received TimeBloodVenous blood / UnknownVenipuncture / Nwigccv3208/23/2025 4:19 PM EDT1 4:21 PM EDT Narrative Authorizing ProviderResult TypeResult StatusShayne Susan Ruiz DOLAB BLOOD ORDERABLESFinal ResultPerforming OrganizationAddressCity/State/ZIP CodePhone Number [facility] [address] [place] [address], documented in this encounter Visit Diagnoses Diagnosis Pneumonia- Primary Pneumonia, organism unspecified Pneumonia Pneumonia, organism unspecified Hypokalemia Hypopotassemia COPD exacerbation (CMS-HCC) Obstructive chronic bronchitis with exacerbation Cirrhosis of liver without ascites (CMS-HCC) Infrarenal abdominal aortic aneurysm (AAA) without rupture Acute on chronic diastolic congestive heart failure (CMS-HCC) Hypokalemia Hypopotassemia ILD (interstitial lung disease) (CMS-HCC) Postinflammatory pulmonary fibrosis Hypertension Unspecified essential hypertension Hyperlipidemia Other and unspecified hyperlipidemia Gastroesophageal reflux disease Esophageal reflux DDD (degenerative disc disease), lumbar Degeneration of lumbar or lumbosacral intervertebral disc Chronic bilateral low back pain without sciatica Primary insomnia Persistent disorder of initiating or maintaining sleep H/O aortic valve replacement History of coronary artery stent placement documented in this encounter Admitting Diagnoses Diagnosis Pneumonia Pneumonia, organism unspecified documented in this encounter Administered Medications Medication OrderMAR ActionAction DateDoseRateSite atorvastatin (LIPITOR) tablet 10 mg 10 mg, oral, Nightly, First dose on Fri08/24/25 at 2200, Look-alike/sound-alike medication - verify indication for use. Given08/24/2025 9:00 PM EDT10 mg azithromycin (ZITHROMAX) 500 mg in sodium chloride 0.9 % 250 mL IVPB W/ADAPTER 500 mg, intravenous, at 250 mL/hr, Administer over 60 Minutes, Once, On Fri08/23/25 at 1732, For 1dose, For Vial-2-Bag: Attach bag and vial to adapter - Use immediately after activating; dissolve drug prior to administration., Indication: Community-acquired pneumonia 08/23/2025 9:06 PM EOL982 mg250 mL/hr azithromycin (ZITHROMAX) tablet 500 mg 500 mg, oral, Daily, First dose on Fri08/24/25 at 0900, For 2 doses, Indication: Community-acquired pneumonia Given08/24/2025 9:45 AM HEN268 mg cefTRIAXone (ROCEPHIN) IVPB 1000 mg/50 mL in iso-osmotic dextrose (20 mg/mL premix) 1,000 mg, intravenous, at 100 mL/hr, Administer over 30 Minutes, Every 24 hours, First dose on Fri08/24/25 at 2000, Look-alike/sound-alike medication - verify indication for use. Do not co-administer with calcium-containing solutions such as Lactated Ringers., Indication: Community-acquired pneumonia 08/24/2025 9:13 PM EDT1,000 mg100 mL/hr cefTRIAXone (ROCEPHIN) IVPB 2000 mg/50 mL in iso-osmotic dextrose (40 mg/mL premix) 2,000 mg, intravenous, at 100 mL/hr, Administer over 30 Minutes, Once, On Fri08/23/25 at 1732, For1 dose, Look-alike/sound-alike medication - verify indication for use. Do not co-administer with calcium-containing solutions such as Lactated Ringers., Indication: Community-acquired pneumonia 08/23/2025 7:57 PM EDT2,000 mg100 mL/hr clopidogreL (PLAVIX) tablet 75 mg 75 mg, oral, Daily, First dose on Fri08/25/25 at 0900, Look-alike/sound-alike medication - verify indication for use. Given08/25/2025 9:00 AM EDT75 mg dextrose (GLUTOSE) 40 % gel 15 g 15 g, oral, As needed, low blood sugar, blood glucose less than 70 mg/dL, Starting on Fri08/23/25 at 1951, If patient conscious and taking PO. If blood glucose is not greater than 70 mg/dL after initial treatment, repeat treatment. dextrose 5 % (D5W) infusion 100 mL/hr, intravenous, Continuous PRN, blood glucose less than 70 mg/dL, Starting on Fri08/23/25 at 1950, For 365 days, Use immediately following dextrose 50% or glucagon treatment for patients whoare unconscious or NPO. Contact prescriber for additional orders. If blood glucose is not greater than 70 mg/dL after initial treatment, repeat treatment. dextrose 50 % in water (D50W) 50% solution 25 mL 25 mL, intravenous, As needed, low blood sugar, blood glucose less than 70 mg/dL and unconscious orNPO with IV access, Starting on Fri08/23/25 at 1950, Push over 1-3 minutes STAT. If conscious and not NPO, immediately follow with meal tray or high protein (7 grams) snack if tray not available. IfNPO, initiate 5% dextrose in water at 100 mL/hr and contact prescriber for additional orders. If blood glucose is not greater than 70 mg/dL after initial treatment, repeat treatment. VESICANT (RED) Warning: HYPERTONIC solution. doxycycline (VIBRAMYCIN) capsule 100 mg 100 mg, oral, 2 times daily, First dose on Fri08/24/25 at 1045, For 5 days, Indication: Community-acquired pneumonia Given08/25/2025 9:00 AM IHH167 zvCxsvv8308/24/2025 9:00 PM TGD532 mgGiven 08/24/2025 11:14 AM UYO755 mg DULoxetine (CYMBALTA) DR capsule 60 mg 60 mg, oral, Daily, First dose on Fri08/24/25 at 0900, Look-alike/sound-alike medication - verify indication for use. Swallow whole-do not crush or chew. Although the wheelchair rental clerk does not recommendopening the capsule to facilitate administration, the contents of capsule may be sprinkled on applesauce or in apple juice and swallowed (without chewing) immediately; do not sprinkle contents on chocolate pudding. Given08/25/2025 9:00 AM EDT60 rtXwibs6708/24/2025 9:45 AM EDT60 mg ezetimibe (ZETIA) tablet 10 mg 10 mg, oral, Daily, First dose on Fri08/24/25 at 0900, Look-alike/sound-alike medication - verify indication for use. Given08/25/2025 9:00 AM EDT10 caQfhhz7808/24/2025 9:45 AM EDT10 mg famotidine (PEPCID) tablet 20 mg 20 mg, oral, Nightly, First dose on Fri08/23/25 at 2200 Given08/24/2025 9:00 PM EDT20 dhXazgq7408/23/2025 10:31 PM EDT20 mg fluticasone furoate-vilanteroL (BREO ELLIPTA) 200-25 mcg/dose inhaler 1 puff 1 puff, inhalation, Daily, First dose on Fri08/24/25 at 0900, Administer fluticasone furoate-vilanterol (BREO ELLIPTA) 200-25 mcg/dose inhaler in addition to umeclidinium (INCRUSE ELLIPTA) 62.5 mcg/dose inhaler as a replacement for oikesqtzprw-pppdqgokqufx-wweeptzhlu (TRELEGY ELLIPTA) inhaler 200-62.5-25 mcg/dose. Given08/25/2025 7:14 AM EDT1 miycVhkla14/22/2025 7:28 AM EDT1 puff furosemide (LASIX) injection 40 mg 40 mg, intravenous, Every 24 hours scheduled, First dose on Fri08/24/25 at 1245, Look-alike/sound-alike medication - verify indication for use. IVP rate = 20 mg/min Given08/25/2025 9:00 AM EDT40 dmBnrew1908/24/2025 1:42 PM EDT40 mg gabapentin (NEURONTIN) capsule 300 mg 300 mg, oral, 3 times daily, First dose on Fri08/23/25 at 2200, Look-alike/sound-alike medication - verify indication for use. Given08/25/2025 5:35 AM [id number] yeNiefl4708/24/2025 9:00 PM ORY270 mgGiven 08/24/2025 1:44 PM [id number] mg glucagon HCL injection 1 mg 1 mg, intramuscular, As needed, low blood sugar, blood glucose less than 70 mg/dL and unconscious or NPO without IV access., Starting on Fri08/23/25 at 1951, If conscious and not NPO, immediately follow with meal tray or high protein (7Grams) snack if tray not available. If NPO, initiate IV 5% Dext emiliano/Water at 100 mL/hr and contact prescriber for additional orders. If blood glucose is not greater than 70 mg/dL after initial treatment, repeat treatment. guaiFENesin (MUCINEX) tablet 600 mg 600 mg, oral, Every 12 hours scheduled, First dose on Fri08/24/25 at 1245, Look-alike/sound-alike medication - verify indication for use. Do not crush or chew. Given08/25/2025 9:00 AM DHJ991 npFvymg4308/24/2025 9:00 PM AHK682 mgGiven 08/24/2025 1:44 PM ZIS656 mg heparin (porcine) injection 5,000 Units 5,000 Units, subcutaneous, Every 8 hours scheduled, First dose on Fri08/23/25 at 2200, Look-alike/sound-alike medication - verify indication for use. Observe for bleeding. Given08/25/2025 5:35 AM EDT5,000 UnitsAbdominal GpbmmlLwnbg69/22/2025 9:00 PM EDT5,000 UnitsAbdominal UiqaqmBywzk95/22/2025 1:43 PM EDT5,000 UnitsAbdominal Tissue iohexoL (OMNIPAQUE) 300 mg iodine/mL 100 mL 100 mL, intravenous, Once in imaging, contrast, Starting on Fri08/23/25 at 1657, For 1 dose, VESICANT (RED) Given08/23/2025 5:34 PM LCY887 mL ipratropium-albuteroL (DUONEB) 0.5 mg-3 mg(2.5 mg base)/3 mL nebulizer solution 3 mL 3 mL, nebulization, Every 6 hours, First dose on Fri08/23/25 at 2000, Implement INPATIENT/ED Bronchodilator Clinical Practice Guidelines? Yes Given08/25/2025 7:13 AM EDT3 fMTqprd4708/25/2025 3:17 AM EDT3 dJXvvvt1508/24/2025 7:14 PM EDT3 mL magnesium sulfate IVPB 2000 mg/50 mL in iso-osmotic water (40 mg/mL premix) 2,000 mg, intravenous, at 25 mL/hr, Administer over 120 Minutes, As needed, Magnesium level 1.7 to 1.9 mg/dL, or Ionized Magnesium level 0.45 to 0.5 mmol/L., Starting on Fri08/23/25 at 1951, Recheckmagnesium level 4 hours after infusion complete. With each magnesium result continue the replacement orders as needed. New Bag08/24/2025 8:12 AM EDT2,000 mg25 mL/hr magnesium sulfate IVPB 4000 mg/100 mL in iso-osmotic water (40 mg/mL premix) 4,000 mg, intravenous, at 25 mL/hr, Administer over 240 Minutes, As needed, Magnesium level 1.6 mg/dL or less, or Ionized Magnesium level 0.44 mmol/L or less, Starting on Fri08/23/25 at 1951, Recheck magnesium level 4 hours after infusion complete. With each magnesium result continue the replacement orders as needed. methylPREDNISolone sod suc(PF) (Solu-MEDROL) injection 40 mg 40 mg, intravenous, Every 12 hours scheduled, First dose on Fri08/24/25 at 1245, May alter blood glucose or insulin requirements. Look-alike/sound-alike medication - verify indication for use. Given08/25/2025 9:00 AM EDT40 pmFlnuz5808/24/2025 9:00 PM EDT40 oaWvtkg5908/24/2025 1:43 PM EDT40 mg metoprolol tartrate (LOPRESSOR) tablet 25 mg 25 mg, oral, 2 times daily, First dose on Fri08/23/25 at 2130, Look-alike/sound-alike medication -verify indication for use. Given08/25/2025 9:00 AM EDT25 jyZjxiy1608/24/2025 9:00 PM EDT25 exVkubb6808/24/2025 9:45 AM EDT25 mg montelukast (SINGULAIR) tablet 10 mg 10 mg, oral, Nightly, First dose on Fri08/24/25 at 2200, Look-alike/sound-alike medication - verify indication for use. Given08/24/2025 9:00 PM EDT10 mg potassium chloride (KAYCIEL) 20 mEq/15 mL solution 20 mEq 20 mEq, oral, 2 times daily, First dose on Fri08/24/25 at 1045, For 3 days, Must dilute before use- Mix in 3-8 ounces of water or juice before administration When administering in feeding tube, flush before and after per policy and monitor potassium levels Given08/24/2025 11:14 AM EDT20 mEq potassium chloride (KAYCIEL) 20 mEq/15 mL solution 30-50 mEq 30-50 mEq, oral, As needed, Potassium Supplementation, Starting on Fri08/23/25 at 195, Progress to oral potassium replacement when patient tolerating oral intake. If dose administered, recheck potassium level 4 hours after last dose. For potassium level 3.4 to 3.8 mmol/L and GFR 30 mL/min or greater=30 mEq. For potassium level 3.1 to 3.3 mmol/L and GFR 30 mL/min or greater=40 mEq. For potassiumlevel 3 mmol/L or less and GFR 30 mL/min or greater=50 mEq. Must dilute before use - Mix in 3-8 ounces of water or juice before administration When administering in feeding tube, flush before and after per policy and monitor potassium levels potassium chloride (KAYCIEL) 20 mEq/15 mL solution 40 mEq 40 mEq, oral, 3 times daily, First dose (after last modification) on Fri08/24/25 at 2200, For 2 days, Must dilute before use - Mix in 3-8 ounces of water or juice before administration When administering in feeding tube, flush before and after per policy and monitor potassium levels Given08/25/2025 5:35 AM EDT40 mLbHmelf51/22/2025 9:08 PM EDT40 mEq potassium chloride (KLOR-CON M 20) CR tablet 30-50 mEq 30-50 mEq, oral, As needed, Potassium Supplementation, Starting on Fri08/23/25 at 1950, Progress to oral potassium replacement when patient tolerating oral intake. If dose administered, recheck potassium level 4 hours after last dose. For potassium level 3.4 to 3.8 mmol/L and GFR 30 mL/min or greater=30 mEq. For potassium level 3.1 to 3.3 mmol/L and GFR 30 mL/min or greater=40 mEq. For potassiumlevel 3 mmol/L or less and GFR 30 mL/min or greater=50 mEq. Do not crush or chew. Given08/24/2025 9:00 PM EDT30 vXqHbggr94/22/2025 6:25 AM EDT50 mEq potassium chloride IVPB 10 mEq/100 mL in water (0.1 mEq/mL premix) 10 mEq, intravenous, at 100 mL/hr, Administer over 60 Minutes, Every 1 hour, First dose on Fri08/23/25 at 1700, For 4 doses, VESICANT (YELLOW) Infuse each 10 mEq over a minimum of 1 hour. New Bag08/23/2025 7:27 PM EDT10 hDm336 mL/hrNew Bag08/23/2025 6:09 PM EDT10 mEq 100 mL/hr potassium chloride IVPB 10 mEq/100 mL in water (0.1 mEq/mL premix) 10 mEq, intravenous, at 100 mL/hr, Administer over 60 Minutes, As needed, POTASSIUM REPLACEMENT, Starting on Fri08/23/25 at 1951, IV if unable to use oral/enteral with the current dosing strategies Potassium level 3 mmol/L or less administer Potassium Chloride 50 mEq Potassium level 3.1 to 3.3 mmol/L administer Potassium Chloride 40 mEq Potassium level 3.4 to 3.8 mmol/L administer Potassium Chloride 30 mEq Use central line when applicable. Recheck potassium level 1 hour after total IVPB infusion complete, With each potassium result continue the replacement orders as needed VESICANT (YELLOW) Infuse each 10 mEq over a minimum of 1 hour. New Bag08/24/2025 12:04 AM EDT10 vGg859 mL/viEiuicywee25/21/2025 11:01 PM VOH758 mL/hrNew Bag08/23/2025 10:29 PM EDT10 gDu773 mL/hr prochlorperazine (COMPAZINE) injection 5 mg 5 mg, intravenous, Every 6 hours PRN, nausea, vomiting, if patient unable to tolerate PO, Starting on Fri08/23/25 at 2125, When administered via IV Push, do not exceed 5 mg per minute prochlorperazine (COMPAZINE) injection 5 mg 5 mg, intramuscular, Every 8 hours PRN, nausea, vomiting, if patient unable to tolerate PO and doesnot have IV access, Starting on Fri08/23/25 at 5, When administered via IV Push, do not exceed 5 mg per minute prochlorperazine (COMPAZINE) tablet 5 mg 5 mg, oral, Every 6 hours PRN, nausea, vomiting, Starting on Fri08/23/25 at 2125 Given08/23/2025 9:52 PM EDT5 mg sodium chloride 0.9 % flush 10 mL 10 mL, intravenous, As needed, line care, Starting on Fri08/23/25 at 1657 Given08/23/2025 5:35 PM EDT10 mL sodium chloride 0.9 % flush bag 25 mL, intravenous, at 100 mL/hr, Administer over 15 Minutes, As needed, line care, line care afterIVPB administration, Starting on Fri08/23/25 at 1950 sodium chloride 0.9 % infusion 20 mL/hr, intravenous, Continuous PRN, to maintain patency of lines, Starting on Fri08/23/25 at 1950, For 1 day New Bag08/23/2025 9:04 PM EDT20 mL/hr20 mL/hr sodium chloride 0.9 % radiology injection 80 mL, intravenous, Once in imaging, pre/post contrast, Starting on Fri08/23/25 at 165, For 1 dose Given08/23/2025 5:34 PM EDT80 mL umeclidinium (INCRUSE ELLIPTA) 62.5 mcg/actuation inhaler 1 puff 1 puff, inhalation, Daily, First dose on Fri08/24/25 at 0900, Administer umeclidinium (INCRUSE ELLIPTA) 62.5 mcg/dose inhaler in addition to fluticasone furoate-vilanterol (BREO ELLIPTA) 200-25 mcg/dose inhaler as a replacement for izktaufzgrq-qseisgqmwbpk-bkgucvjhbq (TRELEGY ELLIPTA) inhaler 200-62.5-25 mcg/dose. Do not shake inhaler. Given08/25/2025 7:13 AM EDT1 htsvYsthn33/22/2025 7:28 AM EDT1 puffdocumented in this encounter Active and Recently Administered Medications Times are shown in EDT.Medication Order/ atorvastatin (LIPITOR) tablet 10 mg 10 mg, oral, Nightly, First dose on Fri08/24/25 at 2200, Look-alike/sound-alike medication - verify indication for use. * 2099 (Given - Provider: Rah Leon RN) azithromycin (ZITHROMAX) 500 mg in sodium chloride 0.9 % 250 mL IVPB W/ADAPTER (COMPLETED) 500 mg, intravenous, at 250 mL/hr, Administer over 60 Minutes, Once, On Fri08/23/25 at 1732, For 1dose, For Vial-2-Bag: Attach bag and vial to adapter - Use immediately after activating; dissolve drug prior to administration., Indication: Community-acquired pneumonia * 2105 (New Bag - Provider: Dilcia Grant RN) * 2205 (Stop Bag - Provider: Dilcia rGant RN) azithromycin (ZITHROMAX) tablet 500 mg (CANCELED) 500 mg, oral, Daily, First dose on Fri08/24/25 at 0900, For 2 doses, Indication: Community-acquired pneumonia * 45 (Given - Provider: Umang Rodney RN) cefTRIAXone (ROCEPHIN) IVPB 1000 mg/50 mL in iso-osmotic dextrose (20 mg/mL premix) 1,000 mg, intravenous, at 100 mL/hr, Administer over 30 Minutes, Every 24 hours, First dose on Fri08/24/25 at 2000, Look-alike/sound-alike medication - verify indication for use. Do not co-administer with calcium-containing solutions such as Lactated Ringers., Indication: Community-acquired pneumonia * 2112 (New Bag - Provider: Rah Leon RN - Comment: pt care prioritized) * 2142 (Stop Bag - Provider: Rah Leon RN) cefTRIAXone (ROCEPHIN) IVPB 2000 mg/50 mL in iso-osmotic dextrose (40 mg/mL premix) (COMPLETED) 2,000 mg, intravenous, at 100 mL/hr, Administer over 30 Minutes, Once, On Fri08/23/25 at 1732, For1 dose, Look-alike/sound-alike medication - verify indication for use. Do not co-administer with calcium-containing solutions such as Lactated Ringers., Indication: Community-acquired pneumonia * 1956 (New Bag - Provider: Eva Daley RN - Comment: Waiting on blood cultures) * 2026 (Stop Bag - Provider: Eva Daley RN) clopidogreL (PLAVIX) tablet 75 mg 75 mg, oral, Daily, First dose on Fri08/25/25 at 0900, Look-alike/sound-alike medication - verify indication for use. * 09 (Given - Provider: Umang Rodney RN) doxycycline (VIBRAMYCIN) capsule 100 mg 100 mg, oral, 2 times daily, First dose on Fri08/24/25 at 1045, For 5 days, Indication: Community-acquired pneumonia * 1114 (Given - Provider: Umang Rodney RN) * 2100 (Given - Provider: Rah Leon RN) * 899 (Given - Provider: Umang Rodney RN) DULoxetine (CYMBALTA) DR capsule 60 mg 60 mg, oral, Daily, First dose on Fri08/24/25 at 0900, Look-alike/sound-alike medication - verify indication for use. Swallow whole-do not crush or chew. Although the wheelchair rental clerk does not recommendopening the capsule to facilitate administration, the contents of capsule may be sprinkled on applesauce or in apple juice and swallowed (without chewing) immediately; do not sprinkle contents on chocolate pudding. * 0945 (Given - Provider: Umang Rodney RN) * 0900 (Given - Provider: Umang Rodney RN) ezetimibe (ZETIA) tablet 10 mg 10 mg, oral, Daily, First dose on Fri08/24/25 at 0900, Look-alike/sound-alike medication - verify indication for use. * 0945 (Given - Provider: Umang Rodney RN) * 0900 (Given - Provider: Umang Rodney RN) famotidine (PEPCID) tablet 20 mg 20 mg, oral, Nightly, First dose on Fri08/23/25 at 2200 * 2231 (Given - Provider: Dilcia Grant RN) * 2100 (Given - Provider: Rah Leon RN) fluticasone furoate-vilanteroL (BREO ELLIPTA) 200-25 mcg/dose inhaler 1 puff (Linked Group 1) 1 puff, inhalation, Daily, First dose on Fri08/24/25 at 0900, Administer fluticasone furoate-vilanterol (BREO ELLIPTA) 200-25 mcg/dose inhaler in addition to umeclidinium (INCRUSE ELLIPTA) 62.5 mcg/dose inhaler as a replacement for ffqueneastj-rzfjmfryywad-pszctvsgqp (TRELEGY ELLIPTA) inhaler 200-62.5-25 mcg/dose. * 0728 (Given - Provider: Kinjal Calvin RCP) * 0714 (Given - Provider: Kristin Bartlett RCP) * 0900 (Canceled Entry - Provider: Kristin Bartlett RCP) furosemide (LASIX) injection 40 mg 40 mg, intravenous, Every 24 hours scheduled, First dose on Fri08/24/25 at 1245, Look-alike/sound-alike medication - verify indication for use. IVP rate = 20 mg/min * 1342 (Given - Provider: Umang Rodney RN) * 0900 (Given - Provider: Umang Rodney RN) gabapentin (NEURONTIN) capsule 300 mg 300 mg, oral, 3 times daily, First dose on Fri08/23/25 at 2200, Look-alike/sound-alike medication - verify indication for use. * 2231 (Given - Provider: Dilcia Grant RN) * 0527 (Given - Provider: Dilcia Grant RN) * 1344 (Given - Provider: Umang Rodney RN) * 2100 (Given - Provider: Rah Leon, SULEMA) * 0535 (Given - Provider: Rah Leon, SULEMA) guaiFENesin (MUCINEX) tablet 600 mg 600 mg, oral, Every 12 hours scheduled, First dose on Fri08/24/25 at 1245, Look-alike/sound-alike medication - verify indication for use. Do not crush or chew. * 1344 (Given - Provider: Umang Rodney RN) * 2100 (Given - Provider: Rah Leon, SULEMA) * 0900 (Given - Provider: Umang Rodney RN) heparin (porcine) injection 5,000 Units 5,000 Units, subcutaneous, Every 8 hours scheduled, First dose on Fri08/23/25 at 2200, Look-alike/sound-alike medication - verify indication for use. Observe for bleeding. * 2232 (Given - Provider: Dilcia Grant RN) * 0602 (Given - Provider: Dilcia Grant RN) * 1343 (Given - Provider: Umang Rodney RN) * 2100 (Given - Provider: Rah Leon, SULEMA) * 0535 (Given - Provider: Rah Leon RN) ipratropium-albuteroL (DUONEB) 0.5 mg-3 mg(2.5 mg base)/3 mL nebulizer solution 3 mL 3 mL, nebulization, Every 6 hours, First dose on Fri08/23/25 at 2000, Implement INPATIENT/ED Bronchodilator Clinical Practice Guidelines? Yes * 2056 (Given - Provider: Oliva Burch RCP) * 0250 (Given - Provider: Oliva Burch RCP) * 0726 (Given - Provider: Kinjal Calvin RCP) * 1332 (Given - Provider: Kinjal Calvin RCP) * 1914 (Given - Provider: Destiny Sagastume RCP) * 0317 (Given - Provider: Destiny Sagastume RCP - Comment: other patient care issues) * 0713 (Given - Provider: Kristin Bartlett RCP) methylPREDNISolone sod suc(PF) (Solu-MEDROL) injection 40 mg 40 mg, intravenous, Every 12 hours scheduled, First dose on Fri08/24/25 at 1245, May alter blood glucose or insulin requirements. Look-alike/sound-alike medication - verify indication for use. * 1343 (Given - Provider: Umang Rodney RN) * 2100 (Given - Provider: Rah Leon RN) * 0900 (Given - Provider: Umang Rodney RN) metoprolol tartrate (LOPRESSOR) tablet 25 mg 25 mg, oral, 2 times daily, First dose on Fri08/23/25 at 2130, Look-alike/sound-alike medication -verify indication for use. * 2231 (Not Given - Provider: Dilcia Grant RN - Reason: Patient/family refused) * 0945 (Given - Provider: Umang Rodney RN) * 2100 (Given - Provider: Rah Leon RN) * 0900 (Given - Provider: Umang Rodney RN) montelukast (SINGULAIR) tablet 10 mg 10 mg, oral, Nightly, First dose on Fri08/24/25 at 2200, Look-alike/sound-alike medication - verify indication for use. * 2100 (Given - Provider: Rah Leon RN) potassium chloride (KAYCIEL) 20 mEq/15 mL solution 20 mEq (CANCELED) 20 mEq, oral, 2 times daily, First dose on Fri08/24/25 at 1045, For 3 days, Must dilute before use- Mix in 3-8 ounces of water or juice before administration When administering in feeding tube, flush before and after per policy and monitor potassium levels * 1114 (Given - Provider: Umang Rodney, SULEMA) potassium chloride (KAYCIEL) 20 mEq/15 mL solution 40 mEq 40 mEq, oral, 3 times daily, First dose (after last modification) on Fri08/24/25 at 2200, For 2 days, Must dilute before use - Mix in 3-8 ounces of water or juice before administration When administering in feeding tube, flush before and after per policy and monitor potassium levels * 2108 (Given - Provider: Rah Leon RN) * 0535 (Given - Provider: Rah Leon RN) potassium chloride IVPB 10 mEq/100 mL in water (0.1 mEq/mL premix) () 10 mEq, intravenous, at 100 mL/hr, Administer over 60 Minutes, Every 1 hour, First dose on Fri08/23/25 at 1700, For 4 doses, VESICANT (YELLOW) Infuse each 10 mEq over a minimum of 1 hour. * 1808 (New Bag - Provider: Dulce Barakat RN - Comment: off of floor) * 1858 (Stop Bag - Provider: Eva Daley, SULEMA) * 1899 (Due) * 1926 (New Bag - Provider: Eva Daley, SULEMA) * 1958 (Due: Stop Bag - Provider: Eva Daley, SULEMA) * 1999 (Due) * 2031 (Stop Bag - Provider: Eva Daley, SULEMA) umeclidinium (INCRUSE ELLIPTA) 62.5 mcg/actuation inhaler 1 puff(Linked Group 1) 1 puff, inhalation, Daily, First dose on Fri08/24/25 at 0900, Administer umeclidinium (INCRUSE ELLIPTA) 62.5 mcg/dose inhaler in addition to fluticasone furoate-vilanterol (BREO ELLIPTA) 200-25 mcg/dose inhaler as a replacement for wstgahnexux-srfzrzlsnxau-mwxodcwsiv (TRELEGY ELLIPTA) inhaler 200-62.5-25 mcg/dose. Do not shake inhaler. * 0728 (Given - Provider: Kinjal Calvin RCP) * 0713 (Given - Provider: Kristin Bartlett RCP) * 0900 (Canceled Entry - Provider: Kristin Bartlett RCP) Medication Order dextrose (GLUTOSE) 40 % gel 15 g 15 g, oral, As needed, low blood sugar, blood glucose less than 70 mg/dL, Starting on Fri08/23/25 at 1950, If patient conscious and taking PO. If blood glucose is not greater than 70 mg/dL after initial treatment, repeat treatment. dextrose 5 % (D5W) infusion 100 mL/hr, intravenous, Continuous PRN, blood glucose less than 70 mg/dL, Starting on Fri08/23/25 at 1950, For 365 days, Use immediately following dextrose 50% or glucagon treatment for patients whoare unconscious or NPO. Contact prescriber for additional orders. If blood glucose is not greater than 70 mg/dL after initial treatment, repeat treatment. dextrose 50 % in water (D50W) 50% solution 25 mL 25 mL, intravenous, As needed, low blood sugar, blood glucose less than 70 mg/dL and unconscious orNPO with IV access, Starting on Fri08/23/25 at 1950, Push over 1-3 minutes STAT. If conscious and not NPO, immediately follow with meal tray or high protein (7 grams) snack if tray not available. IfNPO, initiate 5% dextrose in water at 100 mL/hr and contact prescriber for additional orders. If blood glucose is not greater than 70 mg/dL after initial treatment, repeat treatment. VESICANT (RED) Warning: HYPERTONIC solution. glucagon HCL injection 1 mg 1 mg, intramuscular, As needed, low blood sugar, blood glucose less than 70 mg/dL and unconscious or NPO without IV access., Starting on Fri08/23/25 at 1950, If conscious and not NPO, immediately follow with meal tray or high protein (7Grams) snack if tray not available. If NPO, initiate IV 5% Dext emiliano/Water at 100 mL/hr and contact prescriber for additional orders. If blood glucose is not greater than 70 mg/dL after initial treatment, repeat treatment. iohexoL (OMNIPAQUE) 300 mg iodine/mL 100 mL (COMPLETED) 100 mL, intravenous, Once in imaging, contrast, Starting on Fri08/23/25 at 1657, For 1 dose, VESICANT (RED) * 173 (Given - Provider: Radha Rahman, ARRT - Comment: Lot #[id number] 04/17/2028) magnesium sulfate IVPB 2000 mg/50 mL in iso-osmotic water (40 mg/mL premix) 2,000 mg, intravenous, at 25 mL/hr, Administer over 120 Minutes, As needed, Magnesium level 1.7 to 1.9 mg/dL, or Ionized Magnesium level 0.45 to 0.5 mmol/L., Starting on Fri08/23/25 at 1950, Recheckmagnesium level 4 hours after infusion complete. With each magnesium result continue the replacement orders as needed. * 0812 (New Bag - Provider: Umang Rodney RN) * 1012 (Stop Bag - Provider: Umang Rodney RN) magnesium sulfate IVPB 4000 mg/100 mL in iso-osmotic water (40 mg/mL premix) 4,000 mg, intravenous, at 25 mL/hr, Administer over 240 Minutes, As needed, Magnesium level 1.6 mg/dL or less, or Ionized Magnesium level 0.44 mmol/L or less, Starting on Fri08/23/25 at 1950, Recheck magnesium level 4 hours after infusion complete. With each magnesium result continue the replacement orders as needed. methocarbamoL (ROBAXIN) tablet 750 mg 750 mg, oral, 3 times daily PRN, muscle spasms, Starting on Fri08/23/25 at 2124 potassium chloride (KAYCIEL) 20 mEq/15 mL solution 30-50 mEq(Linked Group 2) 30-50 mEq, oral, As needed, Potassium Supplementation, Starting on Fri08/23/25 at 1950, Progress to oral potassium replacement when patient tolerating oral intake. If dose administered, recheck potassium level 4 hours after last dose. For potassium level 3.4 to 3.8 mmol/L and GFR 30 mL/min or greater=30 mEq. For potassium level 3.1 to 3.3 mmol/L and GFR 30 mL/min or greater=40 mEq. For potassiumlevel 3 mmol/L or less and GFR 30 mL/min or greater=50 mEq. Must dilute before use - Mix in 3-8 ounces of water or juice before administration When administering in feeding tube, flush before and after per policy and monitor potassium levels * 2229 (See Alternative - Provider: Dilcia Grant RN) * 2301 (See Alternative - Provider: Dilcia Grant RN) * 2329 (See Alternative - Provider: Dilcia Grant RN) * 0004 (See Alternative - Provider: Dilcia Grant RN) * 0104 (See Alternative - Provider: Dilcia Grant RN) * 0625 (See Alternative - Provider: Dilcia Grant RN) * 2057 (Canceled Entry - Provider: Rah Leon RN - Comment: K 3.4) * 2100 (See Alternative - Provider: Rah Leon RN) potassium chloride (KLOR-CON M 20) CR tablet 30-50 mEq(Linked Group 2) 30-50 mEq, oral, As needed, Potassium Supplementation, Starting on Fri08/23/25 at 1950, Progress to oral potassium replacement when patient tolerating oral intake. If dose administered, recheck potassium level 4 hours after last dose. For potassium level 3.4 to 3.8 mmol/L and GFR 30 mL/min or greater=30 mEq. For potassium level 3.1 to 3.3 mmol/L and GFR 30 mL/min or greater=40 mEq. For potassiumlevel 3 mmol/L or less and GFR 30 mL/min or greater=50 mEq. Do not crush or chew. * 2229 (See Alternative - Provider: Dilcia Grant RN) * 2301 (See Alternative - Provider: Dilcia Grant RN) * 232 (See Alternative - Provider: Dilcia Grant RN) * 0004 (See Alternative - Provider: Dilcia Grant RN) * 0104 (See Alternative - Provider: Dilcia Grant RN) * 0625 (Given - Provider: Dilcia Grant RN) * 2056 (See Alternative - Provider: Rah Leon RN) * 2100 (Given - Provider: Rah Leon RN - Comment: K 3.4) potassium chloride IVPB 10 mEq/100 mL in water (0.1 mEq/mL premix)(Linked Group 2) 10 mEq, intravenous, at 100 mL/hr, Administer over 60 Minutes, As needed, POTASSIUM REPLACEMENT, Starting on Fri08/23/25 at 1951, IV if unable to use oral/enteral with the current dosing strategies Potassium level 3 mmol/L or less administer Potassium Chloride 50 mEq Potassium level 3.1 to 3.3 mmol/L administer Potassium Chloride 40 mEq Potassium level 3.4 to 3.8 mmol/L administer Potassium Chloride 30 mEq Use central line when applicable. Recheck potassium level 1 hour after total IVPB infusion complete, With each potassium result continue the replacement orders as needed VESICANT (YELLOW) Infuse each 10 mEq over a minimum of 1 hour. * 2228 (New Bag - Provider: Dilcia Grant RN - Comment: patient recieved 3 bags downstairs, still needs last 2 bags) * 230 (Restarted - Provider: Dilcia Grant RN) * 232 (Stop Bag - Provider: Dilcia Grant RN) * 0004 (New Bag - Provider: Dilcia Grant RN) * 0104 (Stop Bag - Provider: Dilcia Grant RN) * 0625 (See Alternative - Provider: Dilcia Grant RN) * 2056 (See Alternative - Provider: Rah Leon RN) * 2100 (See Alternative - Provider: Rah Leon RN) prochlorperazine (COMPAZINE) injection 5 mg(Linked Group 3) 5 mg, intravenous, Every 6 hours PRN, nausea, vomiting, if patient unable to tolerate PO, Starting on Fri08/23/25 at 2124, When administered via IV Push, do not exceed 5 mg per minute * 2151 (See Alternative - Provider: Dilcia Grant RN) prochlorperazine (COMPAZINE) injection 5 mg(Linked Group 3) 5 mg, intramuscular, Every 8 hours PRN, nausea, vomiting, if patient unable to tolerate PO and doesnot have IV access, Starting on Fri08/23/25 at 2124, When administered via IV Push, do not exceed 5 mg per minute * 215 (See Alternative - Provider: Dilcia Grant RN) prochlorperazine (COMPAZINE) tablet 5 mg(Linked Group 3) 5 mg, oral, Every 6 hours PRN, nausea, vomiting, Starting on Fri08/23/25 at 2124 * 215 (Given - Provider: Dilcia Grant RN) sodium chloride 0.9 % flush 10 mL 10 mL, intravenous, As needed, line care, Starting on Fri08/23/25 at 1657 * 1735 (Given - Provider: GURVINDER Mcdermott) sodium chloride 0.9 % flush bag 25 mL, intravenous, at 100 mL/hr, Administer over 15 Minutes, As needed, line care, line care afterIVPB administration, Starting on Fri08/23/25 at 1950 sodium chloride 0.9 % infusion () 20 mL/hr, intravenous, Continuous PRN, to maintain patency of lines, Starting on Fri08/23/25 at 1950, For 1 day * 2103 (New Bag - Provider: Dilcia Grant RN) * 1950 (Stop Bag - Provider: Rah Leon RN - Comment: [Order ends at this time. Document the following action when infusion is complete: Stop Bag]) sodium chloride 0.9 % radiology injection (COMPLETED) 80 mL, intravenous, Once in imaging, pre/post contrast, Starting on Fri08/23/25 at 1657, For 1 dose * 1734 (Given - Provider: GURVINDER Mcdermott) zolpidem (AMBIEN) tablet 5 mg 5 mg, oral, Nightly PRN, sleep, Starting on Fri08/23/25 at 2125, Look-alike/sound-alike medication- verify indication for use. Order Group 1: fluticasone furoate-vilanteroL (BREO ELLIPTA) 200-25 mcg/dose inhaler 1 puffJump to med 1 puff, inhalation, Daily, First dose on Fri08/24/25 at 0900, Administer fluticasone furoate-vilanterol (BREO ELLIPTA) 200-25 mcg/dose inhaler in addition to umeclidinium (INCRUSE ELLIPTA) 62.5 mcg/dose inhaler as a replacement for mvugrnxsopf-okpweqntoymv-luvrlvwguc (TRELEGY ELLIPTA) inhaler 200-62.5-25 mcg/dose. And umeclidinium (INCRUSE ELLIPTA) 62.5 mcg/actuation inhaler 1 puffJump to med 1 puff, inhalation, Daily, First dose on Fri08/24/25 at 0900, Administer umeclidinium (INCRUSE ELLIPTA) 62.5 mcg/dose inhaler in addition to fluticasone furoate-vilanterol (BREO ELLIPTA) 200-25 mcg/dose inhaler as a replacement for xlunaialvqs-jvwnpcnwdvsk-axvctdeqck (TRELEGY ELLIPTA) inhaler 200-62.5-25 mcg/dose. Do not shake inhaler. Group 2: potassium chloride (KLOR-CON M 20) CR tablet 30-50 mEqJump to med 30-50 mEq, oral, As needed, Potassium Supplementation, Starting on Fri08/23/25 at 1950, Progress to oral potassium replacement when patient tolerating oral intake. If dose administered, recheck potassium level 4 hours after last dose. For potassium level 3.4 to 3.8 mmol/L and GFR 30 mL/min or greater=30 mEq. For potassium level 3.1 to 3.3 mmol/L and GFR 30 mL/min or greater=40 mEq. For potassiumlevel 3 mmol/L or less and GFR 30 mL/min or greater=50 mEq. Do not crush or chew. Or potassium chloride (KAYCIEL) 20 mEq/15 mL solution 30-50 mEqJump to med 30-50 mEq, oral, As needed, Potassium Supplementation, Starting on Fri08/23/25 at 1950, Progress to oral potassium replacement when patient tolerating oral intake. If dose administered, recheck potassium level 4 hours after last dose. For potassium level 3.4 to 3.8 mmol/L and GFR 30 mL/min or greater=30 mEq. For potassium level 3.1 to 3.3 mmol/L and GFR 30 mL/min or greater=40 mEq. For potassiumlevel 3 mmol/L or less and GFR 30 mL/min or greater=50 mEq. Must dilute before use - Mix in 3-8 ounces of water or juice before administration When administering in feeding tube, flush before and after per policy and monitor potassium levels Or potassium chloride IVPB 10 mEq/100 mL in water (0.1 mEq/mL premix)Jump to med 10 mEq, intravenous, at 100 mL/hr, Administer over 60 Minutes, As needed, POTASSIUM REPLACEMENT, Starting on Fri08/23/25 at 1950, IV if unable to use oral/enteral with the current dosing strategies Potassium level 3 mmol/L or less administer Potassium Chloride 50 mEq Potassium level 3.1 to 3.3 mmol/L administer Potassium Chloride 40 mEq Potassium level 3.4 to 3.8 mmol/L administer Potassium Chloride 30 mEq Use central line when applicable. Recheck potassium level 1 hour after total IVPB infusion complete, With each potassium result continue the replacement orders as needed VESICANT (YELLOW) Infuse each 10 mEq over a minimum of 1 hour. Group 3: prochlorperazine (COMPAZINE) tablet 5 mgJump to med 5 mg, oral, Every 6 hours PRN, nausea, vomiting, Starting on Fri08/23/25 at 2124 Or prochlorperazine (COMPAZINE) injection 5 mgJump to med 5 mg, intravenous, Every 6 hours PRN, nausea, vomiting, if patient unable to tolerate PO, Starting on Fri08/23/25 at 2124, When administered via IV Push, do not exceed 5 mg per minute Or prochlorperazine (COMPAZINE) injection 5 mgJump to med 5 mg, intramuscular, Every 8 hours PRN, nausea, vomiting, if patient unable to tolerate PO and doesnot have IV access, Starting on Fri08/23/25 at 2124, When administered via IV Push, do not exceed 5 mg per minute documented in this encounter Care Teams Team MemberRelationsPomona Valley Hospital Medical CenterpecialtyStart DateEnd Date Benja Garcia MD [address] [place] [address] PCP - GeneralFamily Medicine06/02/25documented as of this encounter
--- OUTSIDE RECORDS SUMMARY | 2025-09-05 10:15 | XMS_ITS | Encounter Summary ---
Author Organization [facility] Address [address] [place] [address] Care Team Providers Care Pump Technician Name Role Phone Riley Garcia MD Primary Care Provider [phone] Encounter Details DateTypeDepartmentCare Team (Latest Contact Info)Fvnaxlqkgpf78/03/2025 10:15 AM ESTOffice Visit [facility] [place] [address] [place] [address] Elier Harris MD [address] [facility] [address] [facility] [place] [address] S/P TAVR (transcatheter aortic valve replacement) (Primary Dx); Coronary artery disease involving [place] coronary artery of [place] heart without angina pectoris; Chronic diastolic congestive heart failure (CMS/HCC); Primary hypertension; Mixed hyperlipidemia; Status post insertion of drug eluting coronary artery stent; LBBB (left bundle branch block); Shortness of breath Social History Tobacco UseTypesPacks/DayYears UsedDateSmoking Tobacco: FormerCigarettes Smokeless Tobacco: NeverAlcohol UseStandard Drinks/WeekCommentsNot Currently0 (1 standard drink = 0.6 oz pure alcohol)CommentsUnknownSex and Gender InformationValueDate RecordedSex Assigned at DkfgbSjirxs13/04/2025 3:19 PM EDT Legal WkdEchxuo16/17/2025 9:30 AM EDTGender QblqwgxkYwtlju22/04/2025 3:19 PM EDT Sexual OrientationHeterosexual or Xmtbccge44/04/2025 3:19 PM EDTdocumented as of this encounter Last Filed Vital Signs Vital SignReadingTime TakenCommentsBlood Fjnmemzk98/7009/05/2025 10:31 AM EST Venvo648509/05/2025 10:31 AM ESTTemperature--Respiratory Rate--Oxygen Saturation 92%09/05/2025 10:31 AM ESTInhaled Oxygen Concentration--Xrauqk86.2 kg (168 lb) 09/05/2025 10:31 AM TCTLtovth242.5 cm (5' 2 )09/05/2025 10:31 AM ESTBody Mass Index30.7309/05/2025 10:31 AM ESTdocumented in this encounter Functional Status * BPAnswerDate of CwbsetwjpoSapfbj03/7009/05/2025 10:31 AM Christine Londono MA * PulseAnswerDate of RhbbqlkqdxZzaxyu0030 10:31 AM Christine Londono MA * Patient PositionAnswerDate of JnyfddzjwgNpyezkLhntxeb82/03/2025 10:31 AM Christine Briggs MA * BPAnswerDate of WszkbkmgxhHluich79/7009/05/2025 10:31 AM Christine Londono MA * PulseAnswerDate of EwvzskajstSzkdfh4686/03/2025 10:31 AM Christine Londono MA * QuP5KvkdixPjbu of FnrejigugaCtidqo6049/03/2025 10:31 AM Christine Londono MA * BP LocationAnswerDate of AssessmentAuthorLeft arm09/05/2025 10:31 AM Christine Briggs MA * Patient PositionAnswerDate of IikciotcqrRmbxkmCxoxmhb79/03/2025 10:31 AM Christine Briggs MA documented as of this encounter Progress Notes * Elier Harris MD - 09/05/2025 10:15 AM EST Images from the original note were not included. [facility] Aileen Carroll is a 70 y.o. year old female patient being seen for 3 mo follow up echo and PFT's. She was seen at [facility] ED a few weeks ago and was treated for pneumonia. She says she followed up with Dr. Garcia and he ordered testing to see if she needs supplemental O2. Patient Active Problem List Diagnosis Aortic stenosis, [...] veins of both lower extremities with pain Acute on chronic diastolic congestive heart failure (CMS/HCC) Chronic respiratory failure with hypoxia (CMS/HCC) COPD exacerbation (CMS/HCC) Disorder of sacrum Hypertension Hypokalemia Infrarenal abdominal aortic aneurysm (AAA) without rupture Pneumonia Family History Problem Relation Name Age of Onset Hypertension Mother Heart disease Mother Cancer Mother Colon cancer Father Hypertension Sister Heart disease Brother Social History Tobacco Use Smoking status: Former Types: Cigarettes Smokeless tobacco: Never Substance Use Topics Alcohol use: Not Currently Drug use: Never [facility] Visit if 06/06/2025: Alisa is seen as a new patient [...] lower extremity edema. No palpitations. No syncope. Follow-up visit 09/05/2025: At last visit I checked an echocardiogram to follow-up on ventricular and function and the functionof the TAVR prosthesis. I also added ezetimibe 10 mg daily for better LDL control. On 08/23/2025 she was admitted to [facility] in [place] with pneumonia. She finished a course of antibiotics. She says that she has improved after the admission. She continues to have some shortness of breath with exertion NYHA class II symptoms. No chest pain.She feels irregular heartbeats. She gets dizziness when standing. Her blood pressure is borderline low. Review of Systems Constitutional: Positive for malaise/fatigue. Cardiovascular: Positive for dyspnea on exertion and irregular heartbeat ( sometimes ). Respiratory: Positive for shortness of breath. Hematologic/Lymphatic: Positive for bleeding problem. Bruises/bleeds easily. Neurological: Positive for dizziness (positional) and light-headedness. Objective Visit Vitals BP 96/70 (BP Location: Left arm, Patient Position: Sitting) Pulse 80 Ht 1.575 m (5' 2 ) Wt 76.2 kg (168 lb) SpO2 92% BMI 30.73 kg/m?? Smoking Status Former BSA 1.83 m?? Physical Exam Constitutional: Appearance: She is well-developed. She is not ill-appearing. HENT: Head: Normocephalic and atraumatic. Nose: Nose normal. Eyes: General: No scleral icterus. Pupils: Pupils are equal, round, and reactive to light. Neck: Thyroid: No thyromegaly. Vascular: No JVD. Cardiovascular: Rate and Rhythm: Normal rate. Rhythm irregular. Pulses: Radial pulses are 2+ on the [...] Hydroxychloroquine Rash Tiotropium Headache and Rash Tiotropium [place] Headache and Rash Bad headaches/rash Medications Current Outpatient Medications: adalimumab (Humira Pen) 40 mg/0.4 mL pen injector kit pen-injector, Inject 40 mg under the skin every 14 (fourteen) days., Disp: , Rfl: albuterol 90 mcg/actuation inhaler, Inhale 2 puffs every 4 (four) hours if needed., Disp: , Rfl: amoxicillin (Amoxil) 500 mg tablet, Take 4 tablets (2,000 mg) by mouth 1 (one) time if needed (30-60 minute prior to dental procedures) for up to 20 doses., Disp: 20 tablet, Rfl: 3 aspirin 81 mg chewable tablet, Chew 81 mg in the morning., Disp: , Rfl: cholecalciferol (Vitamin D-3) 25 MCG (1000 units) tablet, Take 1,000 Units by mouth in the morning., Disp: , Rfl: DULoxetine (Cymbalta) [address] capsule, Take 60 mg by mouth in the morning., Disp: , Rfl: ezetimibe (Zetia) 10 mg tablet, Take 1 tablet (10 mg) by mouth in the morning., Disp: 90 tablet, Rfl: 3 yysoovnlkdg-maiaxqqwe-pqsebizb (Trelegy Ellipta) 200-62.5-25 mcg blister with device, Inhale 1 puffin the morning., Disp: , Rfl: gabapentin (Neurontin) 100 mg capsule, Take 100 mg by mouth two times daily., Disp: , Rfl: lovastatin (Mevacor) 40 mg tablet, Take 40 mg by mouth in the morning., Disp: , Rfl: magnesium oxide (Mag-Ox) 400 mg (241.3 mg magnesium) tablet, Take 400 mg by mouth in the morning., Disp: , Rfl: metoprolol succinate XL (Toprol-XL) 25 mg 24 hr tablet, Take 25 mg by mouth in the morning., Disp: , Rfl: mometasone-formoterol (Dulera 100) 100-5 mcg/actuation inhaler, Inhale 2 puffs in the morning and at bedtime., Disp: , Rfl: montelukast (Singulair) 10 mg [...] if needed each day., Disp: , Rfl: ethambutol (Myambutol) 400 mg tablet, Take 400 mg by mouth in the morning, afternoon, and at bedtime. (Patient not taking: Reported on 09/05/2025), Disp: , Rfl: furosemide (Lasix) 20 mg tablet, Take 1 tablet (20 mg) by mouth every other day., Disp: , Rfl: Recent Labs Blood testing 08/25/2025: Potassium 4.3, BUN 11, creatinine 0.66, LFTs within normal limits except for bilirubin elevated at 1.9. Magnesium 2.1, hemoglobin 12.9, platelets 207. blood testing 06/02/2025: LFTs mildly elevated AST and ALT, cholesterol 155, triglycerides 75, HDL 59, LDL 81, TSH 2.58, free T4 0.82. Blood testing 02/22/2025: Hemoglobin 13.6, platelets 288, potassium 3.8, BUN 7, creatinine 0.7, EGFR92. Imaging and other tests ECG 09/05/2025: Sinus rhythm, left bundle branch block. Occasional PACs and PVCs seen on rhythm strip. PFTs 07/05/2025: Summary: These pulmonary function studies do not indicate evidence of an obstructive ventilatory defect nor evidence of a bronchodilator response. There is no obvious restrictive ventilatory defect nor is there air trapping. Diffusion capacity is moderately reduced even after adjustment for hemoglobin and alveolar volume suggesting primarily an intrinsic decline in diffusion across the alveolar membrane. There are no prior studies available for comparison. Clinical correlation is recommended. Echocardiogram 06/20/2025: 1. Moderate to severe concentric left ventricular [...] elevated right-sided pressures. RVSP is 50 mmHg. ECG 02/22/2025: Normal sinus rhythm with left [...] pacemaker was removed. Primary access was 14 Cuban right femoral artery was closed with 2 Perclose and 8 Cuban Angio-Seal with excellent hemostasis. Secondary access 5 Cuban left femoral artery and 6 Cuban left femoral vein were removed with manual pressure excellent hemostasis. Transthoracic echo the morning. Consider event monitor upon discharge Routine post-TAVR protocol. Assessment/Plan Diagnoses and all orders for this visit: S/P TAVR (transcatheter aortic valve replacement) Coronary artery disease involving [place] coronary artery of [place] heart without angina pectoris Chronic diastolic congestive heart failure (CMS/HCC) Primary hypertension Mixed hyperlipidemia Status post insertion of drug eluting coronary artery stent LBBB (left bundle branch block) - ECG 12 lead unit performed Shortness of breath Other orders - furosemide (Lasix) 20 mg tablet; Take 1 tablet (20 mg) by mouth every other day. 1. Status post TAVR for nonrheumatic aortic valve stenosis: The 1 months post TAVR echocardiogram in February 2025 showed normal functioning of the TAVR prosthesis. I reviewed with her the echocardiogram from June 2025 that showed moderate to severe concentric ventricular hypertrophy, hyperdynamic systolic function with mild LVOT obstruction with Valsalva. The TAVR prosthesis is functioning well. She had mild to moderate mitral regurgitation and moderately elevated right-sided pressures with an RVSP of 50 mmHg. She has a prescription for amoxicillin for endocarditis prophylaxis prior to dental procedures. she is currently on furosemide 20 mg daily. Her blood pressure is low. I am going to reduce the furosemide to 20 mg every other day to reduce the chance of LVOT obstruction. I explained to her that she can take an extra furosemide pill if there is worsening leg edema. It is likely that her elevated right-sided pressures is due to lung disease. She will be investigated for needing oxygen therapy by Dr. Riley Garcia her primary care physician. 2. CAD status post stenting of the LAD in September 2024: No angina. Currently on dual antiplatelet therapy with aspirin and clopidogrel. I will stop clopidogrel and continue aspirin. Continue lovastatin and ezetimibe 10 mg daily. 3. Hypertension: Blood pressure is borderline low. I am reducing furosemide. 4. Hyperlipidemia: Currently on lovastatin and ezetimibe 10 mg daily. Follow up in about 6 months (around 03/05/2026). Elier Harris MD documented in this encounter Plan of Treatment Not on file documented as of this encounter Procedures Procedure NamePriorityDate/TimeAssociated DiagnosisCommentsECG 12 LEAD UNIT YANZXONIQMwhdrwi17/03/2025 11:00 AM EST LBBB (left bundle branch block) documented in this encounter Results * ECG 12 lead unit performed (09/05/2025 11:00 AM EST)Specimen (Source) Anatomical Location / LateralityCollection Method / VolumeCollection Time Received Time Narrative Authorizing ProviderResult TypeResult StatusGeorge Kimberly ZAPATA ORDERABLES Final Result documented in this encounter Visit Diagnoses Diagnosis S/P TAVR (transcatheter aortic valve replacement)- Primary Coronary artery disease involving [place] coronary artery of [place] heart without angina pectoris Chronic diastolic congestive heart failure (CMS/HCC) Primary hypertension Unspecified essential hypertension Mixed hyperlipidemia Status post insertion of drug eluting coronary artery stent LBBB (left bundle branch block) Other left bundle branch block Shortness of breath documented in this encounter Care Teams Team MemberRelationshipSpecialtyStart DateEnd Date Riley Garcia MD [address] [facility] [place] [address] PCP - GeneralFamily Medicine06/06/25documented as of this encounter
--- OUTSIDE RECORDS SUMMARY | 2025-09-07 12:54 | XMS_ITS | Clinical Summary ---
Author Organization [facility] Address [address] [place] [address] Care Team Providers Care Parts Remover Name Role Phone Riley Garcia MD Primary Care Provider [phone] Allergies Active AllergyReactionsCriticalityNoted DateCommentsCelecoxibNausea And Vomiting ,Nausea TalrPunpjo56/08/2905YlmhebyzlkgcnpegwgJgjqBgq51/10/2025Metoclopramide Other,VuhaigvCrjzqe96/19/2020 Dystonic reaction - restless legs TiotropiumHeadache,ImccBal6603/29/2020Tiotropium BromideHeadache,PpdvEvn8511/19/2018 Bad headaches/rash Medications MedicationSigDispense QuantityRefillsLast FilledStart DateEnd DateStatus myqqykjtlcv-arpbcqlqk-hgrbyjxi (Trelegy Ellipta) 200-62.5-25 mcg blister with device Inhale 1 puff in the morning.01/31/2024ctive albuterol 90 mcg/actuation inhaler Inhale 2 puffs every 4 (four) hours if needed.04/14/2018Active cholecalciferol (Vitamin D-3) 25 MCG (1000 units) tablet Take 1,000 Units by mouth in the morning.5Active DULoxetine (Cymbalta) [address] capsule Take 60 mg by mouth in the morning.02/24/2024ctive ethambutol (Myambutol) 400 mg tablet Take 400 mg by mouth in the morning, afternoon, and at bedtime.5Active gabapentin (Neurontin) 100 mg capsule Take 100 mg by mouth two times daily.Active lovastatin (Mevacor) 40 mg tablet Take 40 mg by mouth in the morning.05/24/2024ctive magnesium oxide (Mag-Ox) 400 mg (241.3 mg magnesium) tablet Take 400 mg by mouth in the morning.Active metoprolol succinate XL (Toprol-XL) 25 mg 24 hr tablet Take 25 mg by mouth in the morning.5Active montelukast (Singulair) 10 mg tablet Take 10 mg by mouth at bedtime.05/09/2020Active omeprazole (PriLOSEC) [address] capsule Take 40 mg by mouth before breakfast.05/08/2024ctive potassium chloride CR (Klor-Con M20) 20 mEq ER tablet Take 20 mEq by mouth in the morning.08/26/2024ctive zolpidem (Ambien) 5 mg tablet Take 5 mg by mouth if needed each day.04/28/2025tive Wegovy 0.5 mg/0.5 mL pen injector Inject 5 mcg as directed 1 (one) time per week.06/01/2025tive mometasone-formoterol (Dulera 100) 100-5 mcg/actuation inhaler Inhale 2 puffs in the morning and at bedtime.Active aspirin 81 mg chewable tablet Chew 81 mg in the morning.Active adalimumab (Humira Pen) 40 mg/0.4 mL pen injector kit pen-injector Inject 40 mg under the skin every 14 (fourteen) days.5Active ezetimibe (Zetia) 10 mg tablet Indications:Coronary artery disease involving [place] coronary artery of [place] heart without angina pectoris,Mixed hyperlipidemiaTake 1 tablet (10 mg) by mouth in the morning. 90 tablet /6Active amoxicillin (Amoxil) 500 mg tablet Indications:S/P TAVR (transcatheter aortic valve replacement)Take 4 tablets (2,000 mg) by mouth 1 (one) time if needed (30-60 minute prior to dental procedures)for up to 20 doses. 20 tablet 5Active furosemide (Lasix) 20 mg tablet Take 1 tablet (20 mg) by mouth every other day.5Active clopidogrel (Plavix) 75 mg tablet Take 75 mg by mouth in the morning./01/2025Discontinued(Therapy completed) furosemide (Lasix) 20 mg tablet Take 20 mg by mouth in the morning.Discontinued(Dose adjustment) Active Problems ProblemNoted DateDiagnosed DateChronic respiratory failure with hypoxia 08/25/2025ute on chronic diastolic congestive heart azasqtk6508/24/2025OPD pfywicnvrfbf07/22/9087Bbfecifmdish60/22/1329Nvjqqbtcbdt29/22/2025Infrarenal abdominal aortic aneurysm (AAA) without eckgdpl7308/24/2025 Overview (09/01/2025): 2.9 cm Svxrbujqi74/21/2025Disorder of erjnyw0408/03/20250065Ncwtxwd80/04/2025S/P TAVR (transcatheter aortic valve replacement)01/06/2025Localized edema10/28/2024 Aortic stenosis, jbbxjl4409/01/2024ortal gbkoogihpbrr65/26/2024MAI (mycobacterium avium-intracellulare) rkpooyfoi02/09/2024DDD (degenerative disc disease), lumbar 3Centrilobular ucoskzwdn94/22/2022Low cclvat4807/25/2022 Psychophysiological pacviqbd38/22/2022Murmur, hajzpue5803/21/2022hronic allergic lljdauia89/30/2021Immunocompromised ugivedl1606/01/2021Other cirrhosis of liver 08/04/2020 Overview (06/06/2025): Due to methotrexate Varicose veins of both lower extremities with pain08/04/2020Chronic bilateral low back pain without /28/2020Moderate major nprzrlqkea78/28/2020 Idiopathic pulmonary ysgbocqo35/17/2018Seasonal allergic lueyhsgs53/12/2018 Overview (06/06/2025): in spring and fall Decreased diffusion jewoqoan88/12/2018 Overview (06/06/2025): progressive since 2001 ILD (interstitial lung disease)04/14/2018 Overview (06/06/2025): likely from RA/ methotrexate use- pending CT chest Latent cuxcsgsltdgb74/12/2018 Overview (06/06/2025): treated for a year at age 8 Moderate persistent asthma without qrzltzpupvab46/12/2018 Overview (06/06/2025): clinically and per PFT Rehaijiyzkwj99/03/2018SOB (shortness of breath)02/03/2018Primary insomnia 01/23/2018Spider veins01/23/2018Medication monitoring gciraagux99/16/2017Status post total hip replacement, left10/16/2016Hypertrophic orocguycnsayau38/22/2016 Exercise-induced crwfaa5408/27/2016 Overview (06/06/2025): Replaced inactive diagnosis Right-sided ghdhvjoyo60/30/2016Osteoarthritis, hip, gffeydzkp94/10/2014TB (pulmonary tuberculosis)02/22/2013enign essential stocvqucixhr22/27/2012Family history of breast kftjsv2911/29/2011Family history of colon evtwmt8211/29/2011 Gastroesophageal reflux cwschcs9611/29/20119308Zgrddduuidvjvg77/27/2012Rheumatoid arthritis involving multiple sites11/29/2011 Overview (06/06/2025): on methotrexate and Humira injections- controlled updated via Diagnosis import Encounters DateTypeDepartmentCare JjlcSrktskobbgt86/03/2025 10:15 AM ESTOffice Visit [address] [phone] Elier Harris MD S/P TAVR (transcatheter aortic valve replacement) (Primary Dx); Coronary artery disease involving [place] coronary artery of [place] heart without angina pectoris; Chronic diastolic congestive heart failure (CMS/HCC); Primary hypertension; Mixed hyperlipidemia; Status post insertion of drug eluting coronary artery stent; LBBB (left bundle branch block); Shortness of rsusdl3509/05/2025Orders Only [address] [phone] Boyd Vitale MD 09/01/2025Orders Only [address] [place] [phone] Provider, MD Boyd 06/22/2025Telephone [facility] [address] [place] [phone] Annemarie Oakley MA from Last 3 Months Family History Medical HistoryRelationNameCommentsHeart diseaseBrotherColon cancerFatherCancer MotherHeart diseaseMotherHypertensionMotherHypertensionSisterRelationNameStatus CommentsBrotherDeceasedFatherDeceasedMotherDeceasedSisterDeceased Social History Tobacco UseTypesPacks/DayYears UsedDateSmoking Tobacco: FormerCigarettes Smokeless Tobacco: Never Tobacco Cessation:Counseling Given: Not Answered Alcohol UseStandard Drinks/WeekCommentsNot Currently0 (1 standard drink = 0.6 oz pure alcohol)CommentsUnknownSex and Gender InformationValueDate Recorded Sex Assigned at HqvuaNvmygb58/04/2025 3:19 PM EDTLegal OrcRqflpq96/17/2025 9:30 AM EDTGender CaxukzgjEnamil88/04/2025 3:19 PM EDTSexual OrientationHeterosexual or Wzsnzijv35/04/2025 3:19 PM EDT Last Filed Vital Signs Vital SignReadingTime TakenCommentsBlood Rshixyvu57/7009/05/2025 10:31 AM EST Aybim646309/05/2025 10:31 AM ESTTemperature--Respiratory Rate--Oxygen Saturation 92%09/05/2025 10:31 AM ESTInhaled Oxygen Concentration--Pjedwc57.2 kg (168 lb) 09/05/2025 10:31 AM DHRHkzcxq214.5 cm (5' 2 )09/05/2025 10:31 AM ESTBody Mass Index30.7309/05/2025 10:31 AM EST Plan of Treatment Health MaintenanceDue DateLast DoneCommentsCT Mtnswctcaluh1953FIT-DNA 1953FIT1953FOBT1953Medicare Annual Wellness (AWV)1955 Lvvefquweojlk1953epression Auiceontn09/15/1965Adult Tzxbbax6605/17/1975Fall Risk Bxppoqntv18/15/2018COVID-19 Vaccine ( season)2025 11/03/2021, 04/13/2021, 03/16/2021Influenza Vaccine (#1)509/, 07/23/2022, 07/18/2021, Additional history kpvjddRcjqnrwyp36, 11/14/2023, 06/08/20142561Peeyjkmefhe81olorectal Cancer Screening 10/04/2031neumococcal Vaccine: 50+ ZwfwoEnmooonqk25/30/2021, 05/30/2020Zoster GtmxjgurDfjwlwtpv53/23/2024, 05/20/2024HIB VaccinesAged OutNo longer eligible based on patient's age to complete this topicHPV VaccinesAged OutNo longer eligible based on patient's age to complete this topicIPV VaccinesAged OutNo longer eligible based on patient's age to complete this topicMeningococcal B VaccineAged OutNo longer eligible based on patient's age to complete this topic Meningococcal VaccineAged OutNo longer eligible based on patient's age to complete this topicRotavirus VaccinesAged OutNo longer eligible based on patient's age to complete this topic Procedures Procedure NamePriorityDate/TimeAssociated DiagnosisCommentsECG 12 LEAD UNIT XMLZXGAQJFivnrhc63/03/2025 11:00 AM EST LBBB (left bundle branch block) ECG 12-YFQSOnuqiuy89/21/2025 12:15 PM EDTPULMONARY FUNCTION TESTINGRoutine 07/05/2025 2:11 PM EDTfrom Last 3 Months Results * ECG 12 lead unit performed (09/05/2025 11:00 AM EST)Specimen (Source) Anatomical Location / LateralityCollection Method / VolumeCollection Time Received Time Narrative Authorizing ProviderResult TypeResult StatusGeornini Harris MDECG ORDERABLES Final Result * ECG 12 lead (08/23/2025 12:15 PM EDT) Narrative Authorizing ProviderResult TypeResult StatusHistorical Provider MDECG ORDERABLES Final Result * Pulmonary function testing (07/05/2025 2:11 PM EDT)Anatomical RegionLaterality ModalityOther Narrative Authorizing ProviderResult TypeResult StatusHistorical Provider MDPFT ORDERABLES Final Result from Last [address] [place] [address] Care Teams Team MemberRelationshipSpecialtyStart DateEnd Riley Garcia MD [address] [facility] [address] [address] PCP - GeneralFamily Medicine06/06/25
--- OUTSIDE RECORDS SUMMARY | 2025-09-07 12:54 | XMS_ITS | Clinical Summary ---
Author Organization [employer] tem Address [id number] [address] [place] [address] Care Team Providers Care [employer] Travel Counselor Name Role Phone Riley Garcia MD Primary Care Provider [phone] Allergies No known active allergies Medications MedicationSigDispense QuantityRefillsLast FilledStart DateEnd DateStatus methocarbamoL (ROBAXIN) 750 mg tablet Take 1 tablet (750 mg total) by mouth Three times daily as needed.12/30/2024 Active clopidogreL (PLAVIX) 75 mg tablet Take 1 tablet (75 mg total) by mouth in the morning.09/17/2024ctive furosemide (LASIX) 40 mg tablet Take 0.5 tablets (20 mg total) by mouth daily.Active aspirin 81 mg Take 1 tablet (81 mg total) by mouth every morning. TAKE 81 MG BY MOUTH IN THE MORNINGActive TRELEGY ELLIPTA 200-62.5-25 mcg blister with device Inhale 1 puff in the morning.Active magnesium oxide 500 mg capsule Take 1 capsule (500 mg total) by mouth in the morning.Active cholecalciferol 1,000 units tablet Take 1 tablet (1,000 Units total) by mouth in the morning.5Active lovastatin (MEVACOR) 40 mg tablet Take 1 tablet (40 mg total) by mouth nightly.5Active montelukast (SINGULAIR) 10 mg tablet Take 1 tablet (10 mg total) by mouth nightly.Active metoprolol tartrate (LOPRESSOR) 25 mg tablet Take 1 tablet (25 mg total) by mouth in the morning and 1 tablet (25 mg total) before bedtime.Active omeprazole (PriLOSEC) 40 mg capsule Take 1 capsule (40 mg total) by mouth every morning. TAKE 1 CAPSULE BY MOUTH IN THE MORNINGActive adalimumab (HUMIRA) 40 mg/0.8 mL injection Inject 0.8 mL (40 mg total) under the skin every 14 (fourteen) days.Active albuterol (PROVENTIL HFA;VENTOLIN HFA) 90 mcg/actuation inhaler Inhale 2 puffs every 4 (four) hours as needed.04/28/2025tive DULoxetine (CYMBALTA) 60 mg capsule Take 1 capsule (60 mg total) by mouth every morning. TAKE 1 CAPSULE BY MOUTH ONCE DAILY IN THE MORNINGActive ezetimibe (ZETIA) 10 mg tablet Take 1 tablet (10 mg total) by mouth in the morning./ctive gabapentin (NEURONTIN) 300 mg capsule Take 1 capsule (300 mg total) by mouth 3 (three) times a day.Active zolpidem (AMBIEN) 5 mg tablet Take 1 tablet (5 mg total) by mouth nightly as needed.Active predniSONE (DELTASONE) 10 mg tablet 40 mg for 5 days, 30 mg for 4, 20 mg for 3, 10 mg for 2, then stop 40 tablet 08/25/2025tive WEGOVY 0.25 mg/0.5 mL pen injector Take by mouth once a week.Discontinued(Therapy completed) doxycycline (VIBRAMYCIN) 100 mg capsule Take 1 capsule (100 mg total) by mouth in the morning and 1 capsule (100 mg total) before bedtime. Do all this for 6 days. 12 capsule /Expired cefDINIR (OMNICEF) 300 mg capsule Take 1 capsule (300 mg total) by mouth in the morning and 1 capsule (300 mg total) before bedtime. Do all this for 6 days. 12 capsule /Expired guaiFENesin (MUCINEX) 600 mg tablet extended release 12hr Take 1 tablet (600 mg total) by mouth every 12 (twelve) hours for 6 days. 12 tablet /Expired potassium chloride (KLOR-CON M 20) 20 MEQ CR tablet Take 1 tablet (20 mEq total) by mouth in the morning for 10 days. 10 tablet 511/12/2024Expired Active Problems ProblemNoted DateDiagnosed DateChronic respiratory failure with hypoxia 08/25/2025OPD tqjnowxgskjm06/22/2025Infrarenal abdominal aortic aneurysm (AAA) without ujbxoqd1408/24/2025 Overview (08/24/2025): 2.9 cm Acute on chronic diastolic congestive heart tfdojns5908/24/2025Hypokalemia 08/24/20253072Ejsrkyeisuje01/22/2025H/O aortic valve kwfnoinjobi47/22/2025History of coronary artery stent ambkiqjij65/22/9564Vyldlfqwn48/21/2025Lumbar spondylosis 08/03/2025Disorder of hbdnoi8708/03/20256282Hcxbbeq36/04/2025Localized edema10/28/2024 Aortic stenosis, haekga874Portal jypqqkoozrnz22/26/2024MAI (mycobacterium avium-intracellulare) rwbxdkfyq73/09/2024DDD (degenerative disc disease), lumbar 3Centrilobular bmkectvqd18/22/2022sychophysiological insomnia 07/25/2022Murmur, nstapdg63/19/2022Chronic allergic /30/2021 Immunocompromised bojqgxy8406/01/2021Varicose veins of both lower extremities with pain08/04/2020Cirrhosis of liver without jvtbaue6008/04/2020 Overview (08/03/2025): Due to methotrexate Chronic bilateral low back pain without sykplgup46/28/2020Moderate major idxhoneodr24/28/2020Idiopathic pulmonary ioarsjjs42/17/2018Decreased diffusion mluiteae45/12/2018 Overview (08/03/2025): progressive since 2001 Seasonal allergic bafshsis88/12/2018 Overview (08/03/2025): in spring and fall Moderate persistent asthma without glvuwenrhyxs30/12/2018 Overview (08/03/2025): clinically and per PFT Latent payhotdtuyrm68/12/2018 Overview (08/03/2025): treated for a year at age 8 ILD (interstitial lung disease)04/14/2018 Overview (08/03/2025): likely from RA/ methotrexate use- pending CT chest SOB (shortness of breath)02/03/20186362Qjfzpdrowuzg54/03/2018Spider veins01/23/2018 Primary /23/2018Status post total hip replacement, left10/16/2016 Hypertrophic azkxuqrhhxtdrg68/22/2016Exercise-induced feqjaq3808/27/2016 Overview (08/03/2025): Replaced inactive diagnosis Right-sided axredczuw61/30/2016Osteoarthritis, hip, yloqlbaft73/10/2014TB (pulmonary tuberculosis)02/22/2013enign essential xqbyurbrzxyb22/27/2012 Gastroesophageal reflux aosfjnl9611/29/20118201Lxeekdhzeswblx31/27/2012Rheumatoid arthritis involving multiple sites11/29/2011 Overview (08/03/2025): on methotrexate and Humira injections- controlled updated via Diagnosis import Rheumatoid arthritis involving multiple sites with positive rheumatoid factor 06/10/2011 Encounters DateTypeDepartmentCare IbvnGdrktlhnhme66/21/2025 4:03 PM EDT - 08/25/2025 1:52 PM EDTHospital Encounter [facility] [address] [place] [address] Wes Ruiz DO Gill, Kaleem U, MD Muhammad, Ruqiyya T, MD Pneumonia (Primary Dx); Hypokalemia Discharge Disposition: Home08/23/20258671Dckziw51/10/2025Telephone [facility] Rheumatology, A Department of [address] [address] Kelly Pritchard MD 08/10/2025 10:30 AM EDTOffice Visit [facility] [address] [place] [address] Erika Harrell PA-C Disorder of sacrum (Primary Dx); Lumbar plkpezjiztx32/07/0615Zmxhjc48/03/2025Telephone [facility] [address] [place] [address] Erika Harrell PA-C 08/03/2025 2:09 PM EDT - 08/03/2025 11:59 PM EDTHospital Encounter [facility] - Radiology [address] [place] [address] Erika Harrell PA-C Disorder of sacrum Discharge Disposition: Home08/03/2025 2:05 PM EDT - 08/03/2025 2:08 PM EDT Hospital Encounter [facility] - Radiology [address] [place] [address] Erika Harrell PA-C Lumbar spondylosis Discharge Disposition: Home08/03/2025 1:[address] [facility] [address] [place] [address] Erika Harrell PA-C Lumbar spondylosis (Primary Dx); Disorder of jhnvtm6608/03/20253331Wbfmpa71/25/2025Travelfrom Last 3 Months Family History Medical HistoryRelationNameCommentsHeart diseaseBrotherCancerFatherCancerMother CancerSisterHeart diseaseSisterRelationNameStatusCommentsBrotherFatherMother Sister Social History Tobacco UseTypesPacks/DayYears UsedDateSmoking Tobacco: NeverSmokeless Tobacco: Never Tobacco Cessation:Counseling Given: Not Answered Alcohol UseStandard Drinks/WeekCommentsNot Currently0 (1 standard drink = 0.6 oz pure alcohol)ChildcareAnswerDate QktwcdwwTjvyrgfsoKmtjveu85/10/2019Employment AnswerDate AsnalbepBsbwhiubewVkjowei38/10/2019Hunger ScreeningAnswerDate RecordedWithin the past 12 months we worried whether our food would run out before we got money to buy more.Never True08/24/2025Within the past 12 months the food we bought just didn't last and we didn't have money to get more.Never True08/24/2025CommentsUnknownSex and Gender InformationValueDate RecordedSex Assigned at BirthNot on fileLegal EigLjwqoz37/04/2015 1:09 PM EDT Gender IdentityNot on fileSexual OrientationNot on file Last Filed Vital Signs Vital SignReadingTime TakenCommentsBlood Heqmuaxh073/5408/24/2025 7:36 PM EDT Dmchb517108/25/2025 8:12 AM WUYSdemhcbvnvf86.4 ??C (97.5 ??F)08/25/2025 8:12 AM EDTRespiratory Tndt1530 8:12 AM EDTOxygen Tebnlfrtun06%08/25/2025 1:11 PM EDTInhaled Oxygen Concentration--Gsmoqj13 kg (169 lb 11.2 oz)08/23/2025 9:00 PM BAYNvtheh652.9 cm (5' 0.98 )08/23/2025 9:00 PM EDTBody Mass Index32.08 08/23/2025 9:00 PM EDT Plan of Treatment DateTypeDepartmentCare Team (Latest Contact Info)Mdflaxqagea90/26/2025 10:45 AM ESTOffice Visit [facility] [address] [place] [phone] Erika Harrell, PAJensenC [address] [place] [address] 12/15/2025 1:00 PM ESTOffice Visit [facility] Rheumatology [address] [place] [phone] Kelly Pritchard MD [address] [address] Health MaintenanceDue DateLast DoneCommentsStatin Use: Rfpbtfvxetcqlu1953 Depression Lnkifuiur11/15/1965Adult BMI Follow Up Plan1971DTaP,Tdap and Td Vaccines (1 - Tdap)1972RSV ( or age 60+ yrs) (1 - Risk 60-74 years 1-dose series)2013Fall Risk Ukhmigarb90/15/2018COVID-19 Vaccine ( season)5011/03/2021, 04/13/2021, 03/16/2021Influenza Vaccine 509/, 07/23/2022, 07/18/2021, Additional history existsAdult BMI Bqxrtnmwz81Tobacco Faudcnjbt71Zoster (Shingles) FqovxazJecxanxcw51/23/2024, 05/20/2024 Goals GoalPatient Goal TypeAssociated ProblemsRecent ProgressPatient-Stated?Author Home with self care and possible new home O2/nebulizer Therese Adhikari LSW Note: Evaluation of progress towards goal: Patient will return home with self care and possible home O2 and/or nebulizer Medical Devices Not on file Procedures Procedure NamePriorityDate/TimeAssociated DiagnosisCommentsCBC WITH AUTO PZOHOPXVTDXKSiytqxd91/23/2025 5:28 AM EDT ANUMFQIFDDrerizb15/23/2025 5:28 AM EDT COMPREHENSIVE METABOLIC WZOGYOcfwqle44/23/2025 5:28 AM EDT ER EXTRA URINE CLZLBBGLGK44/22/2025 8:40 PM EDT ER EXTRA URINE IJJZQWUOTET74/22/2025 8:40 PM EDT ER EXTRA WJVCPESRV71/22/2025 8:40 PM EDT GWGSFSRCKUprjtpg70/22/2025 3:50 PM EDT SMMYNDSYQNzpmxqc43/22/2025 3:50 PM EDT TROP I, HIGH SENSITIVITY 3 AFQFEfsotiq50/22/2025 5:25 AM EDT CBC WITH AUTO SSXFFATXRLBKJkytkfj23/22/2025 5:25 AM EDT NRDDYLFZLXslkwlz02/22/2025 5:25 AM EDT COMPREHENSIVE METABOLIC MXGSBKbrjnqf09/22/2025 5:25 AM EDT EXTRA TUBES BLUE RFOPahobuc50/22/2025 5:24 AM EDT EXTRA CUJPCFxdqtie45/22/2025 5:24 AM EDT PULSE OXIMETRY, XWKNJcxkuct35/21/2025 7:52 PM EDTEXTRA TUBES SST TOPRoutine 08/23/2025 7:37 PM EDT EXTRA XIUEDGkarrey83/21/2025 7:37 PM EDT TROP I, HIGH SENSITIVITY 1 VOINCPFX90/21/2025 7:37 PM EDT BLOOD MLNQLMMQMGJ11/21/2025 7:37 PM EDT ECG 12-RLPZUQZJ57/21/2025 6:03 PM EDT LACTATE W/ HNGOEOQHZQ13/21/2025 5:54 PM EDT BLOOD LMCWTBYHWQE48/21/2025 5:[address] ABDOMEN AND PELVIS W FJTWPEFT49/21/2025 5:[address] BRAIN WO MQTBWTFR70/21/2025 5:31 PM EDT XR CHEST 1 GMRSGB8108/23/2025 4:51 PM EDT EXTRA TUBES BLUE PJGYdugocr26/21/2025 4:19 PM EDT PROCALCITONINAdd-On08/23/2025 4:19 PM EDT B-TYPE NATRIURETIC PEPTIDESTAT Add-on08/23/2025 4:19 PM EDT TROPONIN I, HIGH SENSITIVITY 0 HOURAdd-On08/23/2025 4:19 PM EDT TROPONIN I, HIGH SENSITIVITY 0 HOURAdd-On08/23/2025 4:19 PM EDT EXTRA SAPCHOqkynrv52/21/2025 4:19 PM EDT COMPREHENSIVE METABOLIC OAGDGSZIB64/21/2025 4:19 PM EDT CBC WITH AUTO RESZLCOQWORTTYOF06/21/2025 4:19 PM EDT XR HIPS BILAT W OR WO PELVIS 2 YVZCqdkfqb48/01/2025 2:37 PM EDT Disorder of sacrum XR SPINE LUMBAR 2 OR 3 SQKYnlwucx08/01/2025 2:35 PM EDT Lumbar spondylosis from Last 3 Months Results * (ABNORMAL) CBC auto differential (08/25/2025 5:28 AM EDT) Only the most recent of3 resultswithin the time period is included. ComponentValueRef RangeTest MethodAnalysis TimePerformed AtPathologist Signature WBC8.74 - 11 x10E9/L1 6:23 AM EDTPUC HEALTHRBC Count4.413.8 - 5.2 X10E12/L1 6:23 AM EDTPUC HEALTHHemoglobin12.911.7 - 15.5 g/dL08/25/2025 6:23 AM EDTPUC HEALTHHematocrit37.835 - 47 %08/25/2025 6:23 AM EDTPUC HEALTHMCV8680 - 100 fL08/25/2025 6:23 AM EDTPUC HEALTHMCH29.327 - 34 pg08/25/2025 6:23 AM EDTPUC HEALTHMCHC34.232 - 36 g/dL08/25/2025 6:23 AM EDTPUC HEALTHRDW16.7(H)11.5 - 15 %08/25/2025 6:23 AM EDTPUC HEALTHPlatelet Fjgpc764492 - 450 X10E9/L1 6:23 AM EDT [facility]MPV10.07 - 12 fL08/25/2025 6:23 AM EDT [facility]ITALNeutrophils %81.4%08/25/2025 6:23 AM EDT [facility]ITALLymphocytes %12.0%08/25/2025 6:23 AM EDT [facility]ITALMonocytes %6.1%08/25/2025 6:23 AM EDT [facility]ITALEosinophils %0.3%08/25/2025 6:23 AM EDT [facility]ITALBasophils %0.2%08/25/2025 6:23 AM EDT [facility]ITALNeutrophils Absolute (A)7.1(H)1.5 - 6.6 10*3/uL08/25/2025 6:23 AM EDTPUC HEALTHLymphocytes Absolute1.01.0 - 3.5 10*3/uL08/25/2025 6:23 AM EDTPUC HEALTHMonocytes Absolute0.50.0 - 0.9 10*3/uL08/25/2025 6:23 AM EDTPUC HEALTHEosinophils Absolute0.00.0 - 0.4 10*3/uL08/25/2025 6:23 AM EDAVITA HEALTH SYSTEM ONTARIO HOSPITALBasophils Absolute0.00.0 - 0.2 10*3/uL 08/25/2025 6:23 AM [facility]ITALDifferential Type AUTOMATED DMONNLREEVIT50/23/2025 6:23 AM [facility] Specimen (Source)Anatomical Location / LateralityCollection Method / Volume Collection TimeReceived TimeBloodVenous blood / UnknownVenipuncture / Unknown 08/25/2025 5:28 AM EDT1 6:17 AM EDT Narrative Authorizing ProviderResult TypeResult StatusFirst[facility] STRATEGIC DEBRIEFING OFFICER-CNPLAB BLOOD ORDERABLESFinal ResultPerforming OrganizationAddressCity/State/ZIP CodePhone Number [address] [place] [address], [place] * Magnesium (08/25/2025 5:28 AM EDT) Only the most recent of3 resultswithin the time period is included. ComponentValueRef RangeTest MethodAnalysis TimePerformed AtPathologist Signature MAGNESIUM2.11.8 - 2.6 mg/dL08/25/2025 6:49 AM [facility]pecimen (Source)Anatomical Location / LateralityCollection Method / VolumeCollection TimeReceived TimeBloodVenous blood / UnknownVenipuncture / Cumebaz5908/25/2025 5:28 AM EDT1 6:18 AM EDT Narrative Authorizing ProviderResult TypeResult StatusAngeoscar Watsonden STRATEGIC DEBRIEFING OFFICER-CNPLAB BLOOD ORDERABLESFinal ResultPerforming OrganizationAddressty/State/ZIP CodePhone Number [address] [place] [address], [place] * (ABNORMAL) Comprehensive metabolic panel (08/25/2025 5:28 AM EDT) Only the most recent of3 resultswithin the time period is included. ComponentValueRef RangeTest MethodAnalysis TimePerformed AtPathologist Signature QQTOXN956020 - 146 mmol/L1 6:49 AM [facility]OSPITALPOTASSIUM4.33.5 - 5.0 mmol/L1 6:49 AM [facility]OSPITALCHLORIDE10298 - 109 mmol/L1 6:49 AM [facility] HOSPITALCARBON RXZKKVV2866 - 32 mmol/L1 6:49 AM EDT [facility]ITALANION GAP95 - 15 mmol/L1 6:49 AM EDT [facility]PITALBLOOD UREA JJKAFMAG628 - 27 mg/dL08/25/2025 6:49 AM [facility]OSPITALCREATININE0.660.40 - 1.00 mg/dL 08/25/2025 6:49 AM [facility]OSPITALComment:METHOD TRACEABLE TO IDMS PEPUNTUDJKXOAEW504(H)65 - 99 mg/dL08/25/2025 6:49 AM EDT [facility]PITALCALCIUM8.3(L)8.5 - 10.5 mg/dL08/25/2025 6:49 AM [facility]OSPITALTOTAL PROTEIN7.06.0 - 8.0 g/dL 08/25/2025 6:49 AM [facility]OSPITALALBUMIN2.4(L)3.2 - 5.3 g/dL08/25/2025 6:49 AM [facility]OSPITALALKALINE EXWBMTTVGDR8109 - 130 U/L1 6:49 AM [facility]OS[facility]ITALAST28<=41 U/L1 6:49 AM [facility] ALT19<=31 U/L1 6:49 AM [facility] BILIRUBIN,TOTAL1.9(H)0.3 - 1.2 mg/dL08/25/2025 6:49 AM [facility] HOSPITALEGFR Non-Race Dependent>90>=60 ml/min/1.73sq.m1 6:49 AM [facility]OSPITALComment: eGFR not reported due to non-numeric value for Creatinine. Reported eGFR is based on the CKD-EPI 2020 equation that does not use a race coefficient. Specimen (Source)Anatomical Location / LateralityCollection Method / Volume Collection TimeReceived TimeBloodVenous blood / UnknownVenipuncture / Unknown 08/25/2025 5:28 AM EDT1 6:18 AM EDT Narrative Authorizing ProviderResult TypeResult StatusAngela Concord STRATEGIC DEBRIEFING OFFICER-CNPLAB BLOOD ORDERABLESFinal ResultPerforming OrganizationAddressCity/State/ZIP CodePhone Number [address] [place] [address], [place] * Extra Urine Ronceverte (08/24/2025 8:40 PM EDT)ComponentValueRef RangeTest Method Analysis TimePerformed AtPathologist SignatureExtra TubeAuto Resulted 08/24/2025 10:01 PM EDTPOhioHealth Grant Medical Centern (Source) Anatomical Location / LateralityCollection Method / VolumeCollection Time Received TimeUrineUrine specimen collection, clean catch / Lprlebg3808/24/2025 8:40 PM EDT1 9:17 PM EDT Narrative Authorizing ProviderResult TypeResult StatusShayne A Ruiz DOURINE ORDERABLES Final ResultPerforming OrganizationAddressty/State/ZIP CodePhone Number [address] [place] [address], [place] * Extra Urine Culture (08/24/2025 8:40 PM EDT)ComponentValueRef RangeTest Method Analysis TimePerformed AtPathologist SignatureExtra TubeAuto Resulted 08/24/2025 10:01 PM EDTPMAGRUDER HOSPITALpecimen (Source) Anatomical Location / LateralityCollection Method / VolumeCollection Time Received TimeUrineUrine specimen collection, clean catch / Niccjzc4408/24/2025 8:40 PM EDT1 9:18 PM EDT Narrative Authorizing ProviderResult TypeResult StatusShayne A Ruiz DOURINE ORDERABLES Final ResultPerforming OrganizationAddressty/State/ZIP CodePhone Number [address] [place] [address], [place] * Extra Urine (08/24/2025 8:40 PM EDT)ComponentValueRef RangeTest MethodAnalysis TimePerformed AtPathologist SignatureExtra TubeAuto Fdarggcp92/22/2025 10:01 PM EDOhioHealth [facility] (Source)Anatomical Location / LateralityCollection Method / VolumeCollection TimeReceived TimeUrineUrine specimen collection, clean catch / Iwkiezx0908/24/2025 8:40 PM EDT1 9:18 PM EDT Narrative Authorizing ProviderResult TypeResult StatusShayne A Ruiz DOURINE ORDERABLES Final ResultPerforming OrganizationAddressCity/State/ZIP CodePhone Number [address] [place] [address], [place] * (ABNORMAL) Potassium (08/24/2025 3:50 PM EDT)ComponentValueRef RangeTest MethodAnalysis TimePerformed AtPathologist SignaturePOTASSIUM3.4(L)3.5 - 5.0 mmol/L1 4:40 PM [facility] (Source)Anatomical Location / LateralityCollection Method / VolumeCollection TimeReceived TimeBloodVenous blood / UnknownVenipuncture / Npzysgg8408/24/2025 3:50 PM EDT1 4:18 PM EDT Narrative Authorizing ProviderResult TypeResult StatusAngela Concord STRATEGIC DEBRIEFING OFFICER-CNPLAB BLOOD ORDERABLESFinal ResultPerforming OrganizationAddressty/State/ZIP CodePhone Number [address] [place] [address], [place] * (ABNORMAL) Troponin I, High Sensitivity 3 Hour (08/24/2025 5:25 AM EDT) ComponentValueRef RangeTest MethodAnalysis TimePerformed AtPathologist SignatureTROPONIN I, HIGH YDBJZBFHJVF27(H)<16 ng/L1 8:45 AM EDT [facility] (Source)Anatomical Location / LateralityCollection Method / VolumeCollection TimeReceived TimeBloodVenous blood / UnknownVenipuncture / Zhzsagm8608/24/2025 5:25 AM EDT1 5:48 AM EDT Narrative [facility] - 08/24/2025 8:45 AM EDT Elevations of hs-Troponin may be due to causes other than myocardial ischemia. Recommend serial hs-Troponin testing be performed. For the initial evaluation and management of chest pain patients, refer to the algorithms linked below. Emergency Patient: [email or web address] Inpatient: [email or web address] Authorizing ProviderResult TypeResult StatusShaka KLEIN BLOOD ORDERABLES Final ResultPerforming OrganizationAddressCity/State/ZIP CodePhone Number [address] [place] [address], [place] * Light Blue Top (08/24/2025 5:24 AM EDT) Only the most recent of2 resultswithin the time period is included. ComponentValueRef RangeTest MethodAnalysis TimePerformed AtPathologist Signature Extra TubeAuto Qsqwwbnv43/22/2025 7:01 AM [facility] Specimen (Source)Anatomical Location / LateralityCollection Method / Volume Collection TimeReceived TimeBloodVenous blood / Wvqkhed5108/24/2025 5:24 AM EDT 08/24/2025 5:49 AM EDT Narrative Authorizing ProviderResult TypeResult StatusShaka Gardiner MDLAB BLOOD ORDERABLES Final ResultPerforming OrganizationAddressCity/State/ZIP CodePhone Number [facility] [address] [place] [address]. [place] [address], [place] * SST TOP (08/23/2025 7:37 PM EDT)ComponentValueRef RangeTest MethodAnalysis TimePerformed AtPathologist SignatureExtra TubeAuto Apucoqyk87/21/2025 9:01 PM [facility]pecimen (Source)Anatomical Location / LateralityCollection Method / VolumeCollection TimeReceived TimeBloodVenous blood / Iiogeio4208/23/2025 7:37 PM EDT1 8:02 PM EDT Narrative Authorizing ProviderResult TypeResult StatusShayne A Ruiz DOLAB BLOOD ORDERABLESFinal ResultPerforming OrganizationAddressCity/State/ZIP CodePhone Number [facility] [address] [place] [address], [place] * (ABNORMAL) Troponin I, High Sensitivity 1 Hour (08/23/2025 7:37 PM EDT) ComponentValueRef RangeTest MethodAnalysis TimePerformed AtPathologist SignatureTROPONIN I, HIGH IHUUFDUQMJH408(H)<16 ng/L1 8:35 PM EDT [facility]imen (Source)Anatomical Location / LateralityCollection Method / VolumeCollection TimeReceived TimeBloodVenous blood / UnknownVenipuncture / Ueeqvon6108/23/2025 7:37 PM EDT1 8:02 PM EDT Narrative [facility] - 08/23/2025 8:35 PM EDT Elevations of hs-Troponin may be due to causes other than myocardial ischemia. Recommend serial hs-Troponin testing be performed. For the initial evaluation and management of chest pain patients, refer to the algorithms linked below. Emergency Patient: [email or web address] Inpatient: [email or web address] Authorizing ProviderResult TypeResult StatusShayne A Ruiz DOLAB BLOOD ORDERABLESFinal ResultPerforming OrganizationAddressCity/State/ZIP CodePhone Number [facility] [address] [place] [address] [place] [address], [place] * Blood culture (08/23/2025 7:37 PM EDT) Only the most recent of2 resultswithin the time period is included. ComponentValueRef RangeTest MethodAnalysis TimePerformed AtPathologist Signature CULTURE RESULTSNO GROWTH 5 DAYS08/29/2025 3:02 AM EDKETTERING [facility] LABORATORYSpecimen (Source)Anatomical Location / LateralityCollection Method / VolumeCollection TimeReceived TimeBloodVenous blood / UnknownVenipuncture / Iiozurg7008/23/2025 7:37 PM EDT1 8:02 PM EDT Narrative Authorizing ProviderResult TypeResult StatusShayne A Ruiz DOMICROBIOLOGY - GENERAL ORDERABLESFinal ResultPerforming OrganizationAddressCity/State/ZIP Code Phone Number [facility] [address] [place] [address], [place] [phone] * ECG 12 lead (08/23/2025 6:03 PM EDT)Specimen (Source)Anatomical Location / LateralityCollection Method / VolumeCollection TimeReceived Time08/23/2025 6:03 PM EDT Narrative [facility] - 09/03/2025 4:15 AM EDT Authorizing ProviderResult TypeResult StatusShayne A Ruiz DOECG ORDERABLES Final ResultPerforming OrganizationAddressCity/State/ZIP CodePhone Number [facility] * Lactate w/ Reflex (08/23/2025 5:54 PM EDT)ComponentValueRef RangeTest Method Analysis TimePerformed AtPathologist SignatureLACTATE W/REFLEX2.00.4 - 2.0 mmol/L1 6:28 PM EDTPROMEDICA MOTION PICTURE & TELEVISION HOSPITALpecimen (Source)Anatomical Location / LateralityCollection Method / VolumeCollection TimeReceived TimeBloodVenous blood / UnknownVenipuncture / Qxyibmt2708/23/2025 5:54 PM EDT1 6:12 PM EDT Narrative [facility] - 08/23/2025 6:28 PM EDT Result did not trigger repeat Lactate, re-order if needed. Authorizing ProviderResult TypeResult StatusShayne A Ruiz DOLAB BLOOD ORDERABLESFinal ResultPerforming OrganizationAddressCity/State/ZIP CodePhone Number [facility] [address] [place] [address], [place] * CT abdomen and pelvis with contrast [...] on 08/23/2025 5:41 PM Authorizing ProviderResult TypeResult StatusShjenine Susan Ruiz [facility] ORDERABLES Final Result * CT brain [...] on 08/23/2025 5:36 PM Authorizing ProviderResult TypeResult StatusShayne Susan Ruiz [facility] CT ORDERABLES Final Result * X-ray [...] on 08/23/2025 4:54 PM Authorizing ProviderResult TypeResult StatusShdarius Davis Ruiz [facility] ORDERABLESFinal Result * (ABNORMAL) Troponin I, High Sensitivity 0 Hour (08/23/2025 4:19 PM EDT) ComponentValueRef RangeTest MethodAnalysis TimePerformed AtPathologist SignatureTROPONIN I, HIGH TNKNCQOUTLQ057(H)<16 ng/L1 6:16 PM EDT [facility] (Source)Anatomical Location / LateralityCollection Method / VolumeCollection TimeReceived TimeBloodVenous blood / UnknownVenipuncture / Nlbhipn1208/23/2025 4:19 PM EDT1 4:21 PM EDT Narrative Authorizing ProviderResult TypeResult StatusShdarius A Ruiz DOLAB BLOOD ORDERABLESFinal ResultPerforming OrganizationAddressCity/State/ZIP CodePhone Number [place] [phone], * (ABNORMAL) Procalcitonin (08/23/2025 4:19 PM EDT)ComponentValueRef RangeTest MethodAnalysis TimePerformed AtPathologist SignaturePROCALCITONIN0.27(H)<0.05 ng/mL08/23/2025 8:08 PM [facility]TPTol[facility] (Source)Anatomical Location / LateralityCollection Method / VolumeCollection TimeReceived TimeBloodVenous blood / UnknownVenipuncture / Pqqjijg3208/23/2025 4:19 PM EDT1 4:21 PM EDT Narrative [facility] - 08/23/2025 8:08 PM EDT <0.50 ng/mL - Low risk of severe sepsis and/or septic shock. <2.00 ng/mL - Recommend retesting within 6-24 hours. >2.00 ng/mL - High risk of sepsis and/or septic shock. Authorizing ProviderResult TypeResult StatusKianna Aragon STRATEGIC DEBRIEFING OFFICER-CNPLAB BLOOD ORDERABLESFinal ResultPerforming OrganizationAddressCity/State/ZIP CodePhone Number [address] [place] [address], [place] * (ABNORMAL) B-type natriuretic peptide (08/23/2025 4:19 PM EDT)ComponentValue Ref RangeTest MethodAnalysis TimePerformed AtPathologist ZebuuwwurXYI588(H) <=100 pg/mL08/23/2025 5:03 PM EDTPROMEDICA [facility]PITALpecimen (Source)Anatomical Location / LateralityCollection Method / VolumeCollection TimeReceived TimeBloodVenous blood / UnknownVenipuncture / Rbapnfe5408/23/2025 4:19 PM EDT1 4:21 PM EDT Narrative Authorizing ProviderResult TypeResult StatusShayne A Ruiz DOLAB BLOOD ORDERABLESFinal ResultPerforming OrganizationAddressCity/State/ZIP CodePhone Number [facility] [address] [place] [address], [place] * X-ray hips bilateral with or without pelvis 2 views (08/03/2025 2:37 PM EDT) Anatomical RegionLateralityModalityLower Extremities, MSK, HipBilateral Computed RadiographySpecimen (Source)Anatomical Location / Laterality Collection Method / VolumeCollection TimeReceived Time08/05/2025 10:06 AM EDT Narrative 08/05/2025 10:06 AM EDT XR HIPS BILAT W OR WO PELVIS 2 VWS Clinical history:Disorder of sacrum ??pain Comparison: None. Impression: Degenerative changes of the right hip with joint space loss and narrowing osteophyte formation. Left hip arthroplasty device is noted. There is no acute process fracture dislocation. Degenerative changes of the lumbar spine. Finalized by Rohit Lieberman MD on 08/05/2025 10:06 AM Procedure Note Rohit Lieberman MD - 08/05/2025 XR HIPS BILAT W OR WO PELVIS 2 VWS Clinical history:Disorder of sacrum pain Comparison: None. Impression: Degenerative changes of the right hip with joint space loss and narrowing osteophyte formation. Left hip arthroplasty device is noted. There is noacute process fracture dislocation. Degenerative changes of the lumbarspine. Finalized by Rohit Lieberman MD on 08/05/2025 10:06 AM Authorizing ProviderResult TypeResult StatusErika EPPS DIAGNOSTIC IMAGING ORDERABLESFinal Result * X-ray spine lumbar 2 or 3 views (08/03/2025 2:35 PM EDT)Anatomical Region LateralityModalityMSK, Neuro, Spine, L-spineN/AComputed RadiographySpecimen (Source)Anatomical Location / LateralityCollection Method / VolumeCollection TimeReceived Time08/05/2025 7:57 AM EDT Narrative 08/05/2025 7:59 AM EDT History: Pain Lumbar spine Comparison: none Findings: 5 lumbar type vertebral bodies are noted. ??Lordosis is maintained. Dextroscoliosis is appreciated.Facet arthrosis is noted. Bone mineralization is poor and suggests osteopenia. This hampers detection of nondisplaced fractures. No obvious loss in vertebral body height is appreciated. Infrarenal AAA, 3.1 cm IMPRESSION: Infrarenal AAA. Atherosclerotic disease is noted. Additional chronic findings are detailed above Finalized by Sadaf Pineda MD on 08/05/2025 7:59 AM Procedure Note Saadf Pineda MD - 08/05/2025 History: Pain Lumbar spine Comparison: none Findings: 5 lumbar type vertebral bodies are noted. Lordosis is maintained.Dextroscoliosis is appreciated. Facet arthrosis is noted. Bonemineralization is poor and suggests osteopenia. This hampers detection ofnondisplaced fractures. No obvious loss in vertebral body height isappreciated. Infrarenal AAA, 3.1 cm IMPRESSION: Infrarenal AAA. Atherosclerotic disease is noted. Additional chronicfindings are detailed above Finalized by Sadaf Pineda MD on 08/05/2025 7:59 AM Authorizing ProviderResult TypeResult StatusErika EPPS DIAGNOSTIC IMAGING ORDERABLESFinal Result from Last 3 Months Insurance Advance Directives * Full Code (Latest Code Status on File) Date ActivatedDate IundcjjdgqmThqxyljb92/21/2025 7:52 PM10 3:57 PM Care Teams Team MemberRelationshipSpecialtyStart DateEnd Date Riley Garcia MD [address] [place] [address] PCP - GeneralFamily Medicine06/02/25
--- OUTSIDE RECORDS SUMMARY | 2025-09-07 12:54 | XMS_ITS | Encounter Summary ---
Author Organization [facility] Address [address] [place] [address] Care Team Providers Care Inspector [employer] Name Role Phone Riley Garcia MD Primary Care Provider [phone] Encounter Details DateTypeDepartmentCare Team (Latest Contact Info)Xpvqpyefmck64/03/2025Orders Only [facility] Heart at [place] [address] [place] [address] ProviderBoyd MD [address] [place] [address] Social History Tobacco UseTypesPacks/DayYears UsedDateSmoking Tobacco: FormerCigarettes Smokeless Tobacco: NeverAlcohol UseStandard Drinks/WeekCommentsNot Currently0 (1 standard drink = 0.6 oz pure alcohol)CommentsUnknownSex and Gender InformationValueDate RecordedSex Assigned at WqercEadowl90/04/2025 3:19 PM EDT Legal CrmBlbhxw76/17/2025 9:30 AM EDTGender VtrjxddiJofeyd60/04/2025 3:19 PM EDT Sexual OrientationHeterosexual or Dszwgwzh71/04/2025 3:19 PM EDTdocumented as of this encounter Functional Status * BPAnswerDate of YccnxycjawVvvraz46/7009/05/2025 10:31 AM Christine Londono MA * PulseAnswerDate of CuasjpbfruLksyro6388/03/2025 10:31 AM Christine Londono MA * Patient PositionAnswerDate of MnpakckhosLnwbflWrvrpuv37/03/2025 10:31 AM Christine Briggs MA * BPAnswerDate of GplavbymhfRdtifw51/7009/05/2025 10:31 AM Christine Londono MA * PulseAnswerDate of JzivplnwzuKcztjg2021/03/2025 10:31 AM Christine Londono MA * TmR8XcfitwPnqg of OynlzjmmvtUffkte5400/03/2025 10:31 AM Christine Londono MA * BP LocationAnswerDate of AssessmentAuthorLeft arm09/05/2025 10:31 AM Christine Briggs MA * Patient PositionAnswerDate of SzwmceywzxJjnqriNedfllv99/03/2025 10:31 AM Christine Briggs MA documented as of this encounter Plan of Treatment Not on file documented as of this encounter Procedures Procedure NamePriorityDate/TimeAssociated DiagnosisCommentsECG 12-LEADRoutine 08/23/2025 12:15 PM EDTdocumented in this encounter Results * ECG 12 lead (08/23/2025 12:15 PM EDT) Narrative Authorizing ProviderResult TypeResult StatusHistorical Provider MDECG ORDERABLES Final Result documented in this encounter Visit Diagnoses Not on filedocumented in this encounter Care Teams Team MemberRelationshipSpecialtyStart DateEnd Date Riley Garcia MD [address] [facility] [place] [address] PCP - GeneralFamily Medicine06/06/25documented as of this encounter
--- OUTSIDE RECORDS SUMMARY | 2025-09-07 12:55 | XMS_ITS | Encounter Summary ---
Author Organization [facility] Address [address] [place] [address] Care Team Providers Care Welder Apprentice Name Role Phone Riley Garcia MD Primary Care Provider [phone] Encounter Details DateTypeDepartmentCare Team (Latest Contact Info)Ynkrnhpechz56/30/2025Orders Only [facility] Heart at [place] [address] [place] [address] ProviderBoyd MD [address] [place] [address] Social History Tobacco UseTypesPacks/DayYears UsedDateSmoking Tobacco: FormerCigarettes Smokeless Tobacco: NeverAlcohol UseStandard Drinks/WeekCommentsNot Currently0 (1 standard drink = 0.6 oz pure alcohol)CommentsUnknownSex and Gender InformationValueDate RecordedSex Assigned at CjiyuVbwkay36/04/2025 3:19 PM EDT Legal ZxoRsqdqv37/17/2025 9:30 AM EDTGender UxdrnlbpNpaszw29/04/2025 3:19 PM EDT Sexual OrientationHeterosexual or Mekgyrhr85/04/2025 3:19 PM EDTdocumented as of this encounter Plan of Treatment Not on file documented as of this encounter Procedures Procedure NamePriorityDate/TimeAssociated DiagnosisCommentsPULMONARY FUNCTION QMYEVIUCbiiglj05/02/2025 2:11 PM EDTdocumented in this encounter Results * Pulmonary function testing (07/05/2025 2:11 PM EDT)Anatomical RegionLaterality ModalityOther Narrative Authorizing ProviderResult TypeResult StatusHistorical Provider MDPFT ORDERABLES Final Result documented in this encounter Visit Diagnoses Not on filedocumented in this encounter Care Teams Team MemberRelationshipSpecialtyStart DateEnd Date Riley Garcia MD [address] [facility] [place] [address] PCP - GeneralFamily Medicine06/06/25documented as of this encounter
== END 2025-09-07 12:53 | disposition home or self-care (01) ==
LOC: CARD 12:52
PROVIDERS: PCP Family Medicine; Visit Provider Family Medicine
DX: J44.9 Chronic obstructive pulmonary disease, unspecified (principal)
CPT/HCPCS: 94618

== ENCOUNTER 2025-09-20 10:55 | Outpatient (OUT) | payer MEDICARE, SELFPAY ==
--- NOTE | 2025-09-20 11:16 | US_ITS ---
The [address] [address] Patient Name: VINCENT MCKINNON MRN: [id number] date: 1955 Sex: F Assigned Patient Location: LAB Current Patient Location: LAB Accession/Order Number: [id number] Exam Date: 09/20/2025 11:17 Report Date: 09/20/2025 12:47 At the request of: BENJA AVILES MD Procedure: US abdomen complete EXAMINATION TYPE: US abdomen complete DATE OF EXAM ORDERED: 09/20/2025 12:40 PM HISTORY: Gastroenteritis, epigastric pain, status post cholecystectomy COMPARISON: NONE TECHNIQUE: Realtime imaging limited to the upper abdomen was performed. FINDINGS: There has been previous cholecystectomy. The common bile but measures 6 mm in diameter. No intrahepatic or extrahepatic biliary dilatation is seen. The liver is heterogeneous with nodular margins and increased echogenicity suggesting hepatic cirrhosis. Echogenic foci are noted in the liver suspicious for calcified granulomas.. Hepatopedal flow is noted in the main portal vein. There is recanalization of the umbilical vein. Partial visualization of the pancreas reveals no abnormality. Calcified granulomas are noted in the spleen. The spleen measures 11.5 x 6.3 x 11.0 cm in greatest dimension. Right kidney measures 10.2 x 5.1 x 3.8 cm . No hydronephrosis or mass. Left kidney measures 10.1 x 4.0 x 5.8 cm . No hydronephrosis or mass. The abdominal aorta demonstrates normal arterial waveforms measuring 2.6 cm in greatest transverse dimension with atheromatous plaque along the wall. There is a peak systolic velocity of 73 cm/s with end-diastolic velocity of 18.1 cm/s. The inferior vena cava measures 2.6 cm in greatest dimension and shows adequate venous flow on color Doppler imaging. US/US abdomen complete IMPRESSION: Findings are consistent with hepatic cirrhosis with suggestion of portal venous hypertension including recanalization of the umbilical vein. There is hepatopedal flow the main portal vein. Calcified granulomas are noted in the liver and spleen. There is evidence of prior cholecystectomy.. Impression dictated by: Kalia Davila M.D. 09/20/2025 12:47 PM Dictation Location: [place] [address] Electronically authenticated by: [id number] Y Date: 09/20/2025 12:47
[2025-09-20 11:31] LABS: Hematocrit 41.7 % (36.0-48.0); Hemoglobin 13.7 g/dL (12.0-16.0); Immature Granulocytes Abs Auto 0.02 10^3/uL (0.00-0.03); Immature Granulocytes Pct Auto 0.2 % (0.0-0.5); Lymphocytes Absolute Auto 3.5 10^3/uL (1.2-3.8); Mean Corpuscular HGB Conc 32.9 g/dL (29.9-35.2); Mean Corpuscular Hemoglobin 29.6 pg (26.7-34.0); Mean Corpuscular Volume 90.1 fL (81.0-99.0); Platelet Count 288 10^3/uL (150-450); Red Blood Count 4.63 10^6/uL (4.20-5.40); White Blood Count 9.1 10^3/uL (4.0-11.0)
[2025-09-20 12:11] LABS: Alanine Aminotransferase 33 U/L (14-59); Albumin Globulin Ratio 0.7; Albumin Level 2.8 g/dL (3.4-5.0); Alkaline Phosphatase 93 U/L (46-116); Amylase 65 U/L (25-115); Anion Gap 9.0; Aspartate Amino Transferase 48 U/L (15-37); Blood Urea Nitrogen 11.0 mg/dL (7.0-18.0); Calcium 8.8 mg/dL (8.5-10.1); Carbon Dioxide 35.7 mmol/L (21.0-32.0); Chloride 99 mmol/L (98-107); Estimated GFR (African America >60 (>=60 mL/min/1.73m^2); Estimated GFR (Non-African Ame 55 (>=60 mL/min/1.73m^2); Globulin 4.0 g/dL; Glucose 88 mg/dL (74-106); Lipase 71.0 U/L (16.0-77.0); Sodium 141 mmol/L (136-145); Total Protein 6.8 g/dL (6.4-8.2)
[2025-09-20 13:16] LABS: Potassium 2.7 mmol/L (3.5-5.1)
[2025-09-21 04:07] LABS: CA 19-9 66 U/mL (0-35)
== END 2025-09-20 10:56 | disposition home or self-care (01) ==
LOC: LAB 10:57
PROVIDERS: PCP Family Medicine; Visit Provider Family Medicine
DX: K52.9 Noninfective gastroenteritis and colitis, unspecified (principal); K74.60 Unspecified cirrhosis of liver; R97.8 Other abnormal tumor markers
CPT/HCPCS: 36415; 76700; 80053; 82150; 83690; 85025; 86301